=== PATIENT | male | born 1935 | race Caucasian/White ===

== ENCOUNTER → 2017-10-15 08:22 | Outpatient (CLI) | payer MEDICARE, OTHER, SELFPAY | PROVIDERS: Visit Provider Specialist | DX: M16.12 Unilateral primary osteoarthritis, left hip (principal) | CPT/HCPCS: 20610; 77002; Q9967; J0702 ==

== ENCOUNTER → 2017-12-03 05:54 | Outpatient (CLI) | payer MEDICARE, OTHER, SELFPAY ==
--- NOTE | 2017-12-03 18:01 | STRESSREP ---
Stress Test Report Date: 12/03/2017 Procedure: Pharmacologic stress nuclear imaging study Indications: Abnormal ECG; left bundle branch block pattern; preoperative cardiovascular evaluation Consent: Per the patient Procedure: The patient underwent pharmacologic (Regadenoson) evaluation with a peak heart rate of 88 beats per minute (62 predicted maximal heart rate) and a peak blood pressure of 130/72 mmHg. The baseline ECG demonstrated normal sinus rhythm; left bundle branch block. The peak pharmacologic ECG demonstrated no obvious ECG changes. There were no cardiac dysrhythmias pretest, during pharmacologic infusion, or recovery. There was no complaint of chest discomfort during pharmacologic infusion or recovery. The examination was discontinued secondary to completion of protocol. Impression: 1. Pharmacologic (Regadenoson) evaluation 2. Peak pharmacologic ECG with no obvious ECG change. 3. There were no cardiac dysrhythmias pretest, during pharmacologic infusion, or recovery. 4. Nuclear images pending Myocardial perfusion imaging study: Technique: The patient was injected with 14.6 millicuries of technetium 99m Cardiolite and subsequently rest SPECT Cardiolite nuclear imaging was obtained in the horizontal long, vertical long, and short axis views. The patient underwent pharmacologic (Regadenoson) evaluation with a peak heart rate of 88 beats per minute (62 % percent predicted maximal heart rate) and a peak blood pressure of 130/72 mmHg. The patient was injected with 44.7 millicuries of technetium 99m Cardiolite and subsequently stress SPECT Cardiolite nuclear imaging was obtained in the horizontal long, vertical long, and short axis views. A gated Cardiolite study at peak stress was obtained. Interpretation: Rest and stress SPECT Cardiolite nuclear imaging status post realignment, normalization, and attenuation correction demonstrate a small area of subtle diminished tracer uptake near the apical segments without significant change between rest and stress, otherwise, demonstrating relative uniform tracer uptake. There is end systolic thickening and brightening. The gated Cardiolite study demonstrates myocardial thickening and inward wall motion. The reported LVEF is 66 %. Impression: 1. Rest and stress SPECT currently nuclear imaging demonstrate a small area of subtle diminished tracer uptake near the apical segments without significant change between rest and stress appearing compatible with physiologic apical thinning with no myocardial perfusion changes consider diagnostic for associated stress-induced myocardial ischemia or previous myocardial injury/infarction. 2. The gated Cardiolite study reports an LVEF of 66 %. This note was generated with [employer] software. It may contain incorrect words, spelling, and punctuation that were not noted in checking the note before signing.
== END ==
PROVIDERS: Referring Provider Physician Assistant Medical; Visit Provider Physician Assistant Medical
DX: I44.7 Left bundle-branch block, unspecified (principal)
CPT/HCPCS: 78452; 93017; A9500; A4216; J2785

== ENCOUNTER 2018-04-02 07:41 | Inpatient (IN) | payer MEDICARE, OTHER, SELFPAY ==
[2017-11-28 09:28] VITALS: BMI 29.2
[2018-03-17 11:01] VITALS: BP 124/71; PULSE 97; RESP 18; TEMP 36.8; O2SAT 97; BMI 30.9
[2018-03-17 12:09] LABS: Absolute Lymphocyte Count 1.33 X10^3/ul (0.83-4.51); Absolute Neutrophil Count 6.8 X10^3/uL (2.0-7.7); Basophil# 0.01 X10^3/uL; Basophil% 0.1 % (0-1); Eosinophil# 0.27 X10^3/uL; Hematocrit 54.4 % (40-54); Lymphocyte # 1.33 X10^3/ul (4.0); Lymphocyte % 14.8 % (19-41); Mean Corp Hgb Conc 34.6 g/gl (32-36); Mean Corpuscular Hgb 30.6 pg (27.0-32.0); Mean Corpuscular Volume 88.5 fL (80-94); Mean Platelet Vol. 10.9 fl (6.2-12.0); Monocyte# 0.55 X10^3/uL; Monocyte% 6.1 % (0-10); Neutrophil # 6.78 X10^3/uL (2.7-7.7); Neutrophil % 75.8 % (47-70); Platelet Count 171 K/mm3 (150-450); RBC Distribution Width CV 12.9 % (11.6-14.6); RBC Distribution Width SD 41.3 fl (35.1-43.9); Red Blood Count 6.15 M/mm3 (4.6-6.2)
[2018-03-17 12:26] LABS: Hemoglobin 18.8 g/dl (13.0-16.5); POSITIVE COUNT NO; POSITIVE DIFFERENTIAL NO; POSITIVE MORPHOLOGY NO
[2018-03-17 12:35] LABS: Anion Gap 10 (5-15); BUN 27 mg/dL (7-18); Calcium,Total 9.2 mg/dL (8.5-10.1); Chloride 101 mmol/L (98-107); EST Glomerular Filtration Rate 48 mL/min (>60); Est Glom Filt Rate - Afr Amer 58 mL/min (>60); Estimated Creatinine Clearance 39.88 ml/min; Glucose 144 mg/dL (74-106); Potassium 4.3 mmol/L (3.5-5.1); Sodium Level 136 mmol/L (136-145)
--- NOTE | 2018-03-18 13:05 | PCM.HP.BLA ---
History and Physical DATE OF SURGERY: 04/02/2018 SCHEDULED PROCEDURE: left total hip arthroplasty HISTORY OF PRESENT ILLNESS: This is an 82-year-old male who is having ongoing left hip pain for over 6 years. Pain is been intermittent, dull, aching, and sharp. Patient has increased pain with sitting for extended periods of time. Patient states the pain is now affecting his activities of daily living including exercise capabilities. Patient has more pain now throughout the day. Patient has tried conservative measures consisting of previous intra-articular corticosteroid injection with only approximately 3 days of relief of left hip pain. He has tried home exercise plan with no relief in symptoms. Patient has tried oral medications of ibuprofen with only minimal relief. Patient denies previous surgery on the left hip. Patient currently denies any chest pain, shortness of breath, fevers chills, recent infections. Patient does have a medical history pertinent for hypertension. We have obtain surgical clearance from patient's civil cad designer Dr. Pablo and requiring clearance from patient's primary care physician Dr. Mendiola. After failing conservative measures and discussing all treatment options of Dr. Jerman Quiroga, the patient elected to proceed with a left total hip arthroplasty. REVIEW OF SYSTEMS: ROS: Const: Denies anorexia, change in appetite, fever, hard of hearing, vision problems and weight change. CV: Denies chest pain, heart murmur, irregular heartbeat and peripheral vascular disease. Resp: Reports sleep apnea, but denies asthma, cough, pneumonia, SOB, tuberculosis and wheezing. GI: Denies constipation, diarrhea, difficulty swallowing, heartburn, nausea, bloody stools and vomiting. : Urinary: denies incontinence. Musculo: Denies leg swelling, limp, trouble walking and weakness. Skin: Denies Raynaud's, history of shingles and tattoo. Neuro: Denies ambulatory dysfunction, dizziness, numbness/tingling and tremor. Psych: Denies anxiety, depression, insomnia, mental illness and stress. Dante/Lymph: Denies anemia, bleeding/bruising tendency and past transfusion. Reviewed, no changes. PAST MEDICAL HISTORY: Advance Care Plan: Other Directive, POA Effective Date: 06/30/2015 Other Directive, LIVING WILL Effective Date: 06/30/2015 PMH: Medical Problems: Arthritis, Gout, High Blood Pressure, Mild Spinal Stenosis Accidents: None Surgical Hx: Appendectomy - (194) HASKELL GEN Tonsillectomy - A CHILD RT 1St Dorsal Compartment Release - (03/21/2016) [email or web address] Anesthesia Complications: None Assistive Devices: Glasses - READING Reviewed, no changes. SOCIAL HISTORY: SH: Marital: .Occupation: Retired.Work Status: Retired.Hand Dominance: Right-handed. Personal Habits: Cigarette Use: Never.Alcohol: Occasionally.Drug Use: Denies Use.Enjoy Exercising: Exercises 1-3 X/Week. Reviewed, no changes. VITALS: Ht: 71.5 Wt: 219lb Wt k.338 BMI: 30.1 BP: 130/82 Pulse: 107 Resp: 16 T: 96.9 T: 36.1C ALLERGIES: No Known Drug Allergy MEDICATIONS: Probenecid 500 mg 1 tab PO daily, Multivitamins 1 by mouth every day, Krill Oil 500 mg 1po qday, Losartan Potassium 25 mg 1po qday PRE-OP EXAM: General appearance:NORMAL Other: Eyes: Conjunctivae and lids: NORMAL Pupils: ERR Ears, Nose, Mouth, and Throat: NORMAL Other: Inspection of lips, teeth and gums: NORMAL Other: Neck: Examination of neck: no masses noted. Respiratory: Assessment of respiratory effort: NORMAL Other: Auscultation of lungs: clear to auscultation no wheezes, rhonchi or rales. Cardiovascular: Auscultation of heart: regular rate and rhythm, no murmurs, gallops or rubs. Exam of carotid arteries: NORMAL Other: Gastrointestinal: Exam of abdomen: soft, nontender, nondistended bowel sounds present. PHYSICAL EXAMINATION: Patient currently with tenderness to palpation over the lateral left hip at the greater trochanteric bursa region. Patient also has tender to palpation along the iliac crest bilaterally. Range of motion left hip: 90 flexion, internal rotation 10, external rotation 20, pain with both internal and external rotation. Positive pain with figure 4 and tenderness over the piriformis fossa. Sensation intact to light touch. Neurovascularly intact. IMAGING STUDIES: Previous x-rays of the left hip does reveal joint space narrowing with subchondral sclerosis and osteophyte formation consistent with moderate to severe osteoarthritis. IMPRESSION: 1. Moderate - Severe left hip osteoarthritis 2. Hypertension 3. History of gout 4. Spinal stenosis PLAN: Dr. Jerman Quiroga did discuss and review with the patient all treatment options including surgical versus nonsurgical options. Patient does wish to proceed with the above-stated procedure. Potential risks, benefits, and complications of the procedure were discussed in detail including but not limited to , infection, nerve and blood vessel damage, persistent pain, numbness, tingling, paresthesias, blood clot, pulmonary embolism, and requirement for possible further surgery. The patient expressed full understanding and has no further questions for the doctor. Patient does agree to proceed with the above-stated procedure and has signed the surgery consent form. This dictation was created using voice recognition software. Phonetic and/or grammatical errors may exist.. ___ I have re-examined the patient. There are no clinical changes since date of exam. ___ See progress notes for changes. ___ Dictated on admission Date: Time: Signature:
[2018-04-02] VITALS (11 sets, daily range): BP systolic 88–154; BP diastolic 47–76; PULSE 56–92; RESP 16–18; TEMP 35.8–36.9; O2SAT 95–100; BMI 30.9
--- NOTE | 2018-04-02 07:02 | RAD_ITS ---
STUDY: X-RAY - LEFT HIP REASON FOR EXAM: Male, 82 years old. Total left hip replacement. TECHNIQUE: 2 views of the hip. COMPARISON: None. FINDINGS: The patient is status post left total hip replacement. Position and alignment. Normal visualized superior and inferior pubic rami and ischial tuberosities. Postoperative soft tissue changes. RAD/Hip Min 2 Views (Portable) IMPRESSION: Status post left hip replacement. There is good alignment. Postoperative soft tissue changes. Electronically Signed: Johnny Hutchinson MD at 13:53 EST , Service support ,
[2018-04-02] MEDS: Celecoxib 200 MG Capsule 400 MG PO (08:11)
[2018-04-02] MEDS: Acetaminophen 500 MG Tablet 1000 MG PO ×2 (08:11→15:37)
[2018-04-02] MEDS: Lactated Ringers 1,000 ML 999 ML IV ×2 (08:36→11:22)
[2018-04-02] MEDS: Cefazolin 2 GM in 0.9% Normal Saline 100 ML IV (09:15)
--- NOTE | 2018-04-02 10:00 | RAD_ITS ---
STUDY: X-RAY - LEFT HIP REASON FOR EXAM: Male, 82 years old. Total anterior left hip replacement. TECHNIQUE: 2 views of the hip. COMPARISON: None. FINDINGS: Intraoperative imaging provided for left anterior hip replacement. RAD/Hip 1 view with Pelvis IMPRESSION: Intraoperative imaging provided for left anterior hip replacement. Electronically Signed: Johnny Hutchinson MD at 13:43 EST , Service support ,
--- NOTE | 2018-04-02 10:36 | PCM.OPRPT ---
Report of Operation Date of Procedure: 04/02/18 Pre-Operative Diagnosis: Left hip primary osteoarthritis Post-Operative Diagnosis: Left hip primary osteoarthritis Surgery/Procedure Performed:: Direct anterior left total hip replacement Description of Surgical Findings:: Stable hip with equal leg lengths speech therapy director: Yara Gusman Type of Anesthesia:: Spinal Anesthesiologist: Nadeem Cerda Special Medications: 2 g Ancef, 1 g TXA at incision, 1 g TXA closure, 10 mg Decadron, joint cocktail (5 mg Duramorph, 30 mL of 0.5% Ropivicaine, 1000 units of epinephrine, 30 mg of Toradol) Specimen's removed: Bony cuts Estimated Blood Loss (mL): 350 Fluids Replaced: 2000 L crystalloid Description of Procedure: Components used: 1. Accolade 2 [place] femoral stem size 6 127? 2. [place] trident 2 acetabular shell size 58 mm 3. Rodriguez X3 polyethylene F 4. Rodriguez Biolox delta 36mm, -2.5mm femoral head Brief history operative indications: 82 yo M who failed conservative measures for their hip osteoarthritis. X-rays were consistent with osteoarthritis including joint space narrowing, osteophyte formation and subchondral cysts. Total hip replacement was discussed with the patient with risks and benefits including but not limited to blood loss, DVTs, PEs, neurovascular damage, dislocation, general risks of anesthesia including loss of life. Patient demonstrated an understanding medical clearance is obtained the patient was consented for surgery. Procedure: On the date of procedure the patient's L hip was marked in the preoperative area. Patient was then taken back to the operating room where anesthesia assumed control of the C-spine and airway and administered anesthetic. Patient was transferred to the operating table and placed in the supine position. The hips were placed at the break of the bed and a sacral bump was placed. The L lower extremity was then prepped out in a sterile fashion using chlorhexidine while the surgeon scrubbed. The PA was vital in the positioning of the patient. Upon reentering the room the L lower extremity was draped in the standard orthopedic fashion and the incision was marked. A timeout was called and everyone agreed upon the side, the site, the procedure be performed, antibody given, and patient's identity. At this time incision was made through skin, subcutaneous tissue, and fat down to fascia. The fascia was then incised and the TFL was retracted laterally. A retractor was placed on the lateral border of the femoral neck. Attention was directed to the inferior portion of the approach and all crossing vessels were identified and appropriately coagulated. A retractor was then placed on the medial portion of the femoral neck. The anterior capsule was then cleared of all soft tissue and then H shaped capsulotomy was made. The retractors were then placed inside the capsule. The femoral neck was identified and a cleanup cut was made. At this time a power corkscrew was used to remove the femoral head. Attention was then turned toward the acetabulum where the soft tissues were appropriately retracted and the acetabulum was sequentially reamed to 58 mm. A 58 mm cup was then selected and impacted into place. Acetabular liner was impacted into place and locking mechanism was verified. The position of the acetabular cup was then verified under live fluoroscopy. Attention was then turned to the femur. Soft tissue releases on the medial and lateral femoral neck were appropriately done, the leg was externally rotated and lateralized. A Henson retractor was placed medially and proximally to the greater trochanter this allowed appropriate visualization and exposure of the femoral canal. Rongeour was then used to remove excess lateral bone. A canal finder and entry broach were used to open the proximal canal. Once we verified we were down the femoral canal we subsequently broached up to a size 6 femur. The appropriate neck was placed in the previously selected head was trialed with a -2.5 mm neck. Traction was pulled and the hip was reduced with internal rotation. Once it was appropriately reduced and stability was checked. There was minimal shuck, equal leg lengths and appropriate stability with hyperextension and external rotation as well as with 90? flexion and internal rotation. Fluoroscopy was then also used to verify the position of the components and leg lengths using the contralateral side for comparison. The trial components were then dislocated the proximal femur was again exposed and the components were removed from the wound. The final components were verified and opened. The wound was copiously irrigated out with normal saline. The acetabulum was checked for any residual debris. The final components were placed and impacted. Traction and internal rotation were again used to reduce the hip. After adequate reduction the hip remained stable with appropriate leg lengths. The final components were once again checked with live fluoroscopy and were found to be satisfactory. The wound was then copiously irrigated with normal saline once more, and hemostasis was obtained. Closure was then done using #1 Vicryl runner to close the fascia. A 2-0 vicryl interuppted sutures were used to close the subcutaneous skin. A 3-0 Monocryl and Steri-Strips were used for final skin closure. A Silverlon dressing was placed. Patient was awakened by anesthesia and transferred to the [facility]. Patient was then transferred to the PACU for recovery. Postoperative plan: Patient will get 24 hours postop antibiotics. Patient will get in-house physical therapy and will be weight-bear as tolerated. Patient will follow up in office in 2 weeks for a wound check and x-rays. Grafts/Implants Used: [place] Accolade 2, Trident 2 - Complications None - Admit VTE Documentation VTE Present on Admission: No VTE Mechan Device Prophylaxis: SCD's, Thigh High NIKI Hose VTE Pharm Prophylaxis ordered?: Yes
--- NOTE | 2018-04-02 10:39 | OP.PCM_ITS ---
Report of Operation Date of Procedure: 04/02/18 Pre-Operative Diagnosis: Left hip primary osteoarthritis Post-Operative Diagnosis: Left hip primary osteoarthritis Surgery/Procedure Performed:: Direct anterior left total hip replacement Description of Surgical Findings:: Stable hip with equal leg lengths cigar head holer: Yara Gusman Type of Anesthesia:: Spinal Anesthesiologist: Nadeem Cerda Special Medications: 2 g Ancef, 1 g TXA at incision, 1 g TXA closure, 10 mg Decadron, joint cocktail (5 mg Duramorph, 30 mL of 0.5% Ropivicaine, 1000 units of epinephrine, 30 mg of Toradol) Specimen's removed: Bony cuts Estimated Blood Loss (mL): 350 Fluids Replaced: 2000 L crystalloid Description of Procedure: Components used: 1. Accolade 2 [place] femoral stem size 6 127? 2. [place] trident 2 acetabular shell size 58 mm 3. Rodriguez X3 polyethylene F 4. Rodriguez Biolox delta 36mm, -2.5mm femoral head Brief history operative indications: 82 yo M who failed conservative measures for their hip osteoarthritis. X-rays were consistent with osteoarthritis including joint space narrowing, osteophyte formation and subchondral cysts. Total hip replacement was discussed with the patient with risks and benefits including but not limited to blood loss, DVTs, PEs, neurovascular damage, dislocation, general risks of anesthesia including loss of life. Patient demonstrated an understanding medical clearance is obtained the patient was consented for surgery. Procedure: On the date of procedure the patient's L hip was marked in the preoperative area. Patient was then taken back to the operating room where anesthesia assumed control of the C-spine and airway and administered anesthetic. Patient was transferred to the operating table and placed in the supine position. The hips were placed at the break of the bed and a sacral bump was placed. The L lower extremity was then prepped out in a sterile fashion using chlorhexidine while the surgeon scrubbed. The PA was vital in the positioning of the patient. Upon reentering the room the L lower extremity was draped in the standard orthopedic fashion and the incision was marked. A timeout was called and everyone agreed upon the side, the site, the procedure be performed, antibody gi estephanie, and patient's identity. At this time incision was made through skin, subcutaneous tissue, and fat down to fascia. The fascia was then incised and the TFL was retracted laterally. A retractor was placed on the lateral border of the femoral neck. Attention was directed to the inferior portion of the approach and all crossing vessels were identified and appropriately coagulated. A retractor was then placed on the medial portion of the femoral neck. The anterior capsule was then cleared of all soft tissue and then H shaped capsulotomy was made. The retractors were then placed inside the capsule. The femoral neck was identified and a cleanup cut was made. At this time a power corkscrew was used to remove the femoral head. Attention was then turned toward the acetabulum where the soft tissues were appropriately retracted and the acetabulum was sequentially reamed to 58 mm. A 58 mm cup was then selected and impacted into place. Acetabular liner was impacted into place and locking mechanism was verified. The position of the acetabular cup was then verified under live fluoroscopy. Attention was then turned to the femur. Soft tissue releases on the medial and lateral femoral neck were appropriately done, the leg was externally rotated and lateralized. A Henson retractor was placed medially and proximally to the greater trochanter this allowed appropriate visualization and exposure of the femoral canal. Rongeour was then used to remove excess lateral bone. A canal finder and entry broach were used to open the proximal canal. Once we verified we were down the femoral canal we subsequently broached up to a size 6 femur. The appropriate neck was placed in the previously selected head was trialed with a -2.5 mm neck. Traction was pulled and the hip was reduced with internal rotation. Once it was appropriately reduced and stability was checked. There was minimal shuck, equal leg lengths and appropriate stability with hyperextension and external rotation as well as with 90? flexion and internal rotation. Fluoroscopy was then also used to verify the position of the components and leg lengths using the contralateral side for comparison. The trial components were then dislocated the proximal femur was again exposed and the components were removed from the wound. The final components were verified and opened. The wound was copiously irrigated out with normal saline. The acetabulum was checked for any residual debris. The final components were placed and impacted. Traction and internal rotation were again used to reduce the hip. After adequate reduction the hip remained stable with appropriate leg lengths. The final components were once again checked with live fluoroscopy and were found to be satisfactory. The wound was then copiously irrigated with normal saline once more, and hemostasis was obtained. Closure was then done using #1 Vicryl runner to close the fascia. A 2-0 vicryl interuppted sutures were used to close the subcutaneous skin. A 3-0 Monocryl and Steri-Strips were used for final skin closure. A Silverlon dressing was placed. Patient was awakened by anesthesia and transferred to the [facility]. Patient was then transferred to the PACU for recovery. Postoperative plan: Patient will get 24 hours postop antibiotics. Patient will get in-house physical therapy and will be weight-bear as tolerated. Patient will follow up in office in 2 weeks for a wound check and x-rays. Grafts/Implants Used: [place] Accolade 2, Trident 2 - Complications None - Admit VTE Documentation VTE Present on Admission: No VTE Mechan Device Prophylaxis: SCD's, Thigh High NIKI Hose VTE Pharm Prophylaxis ordered?: Yes
[2018-04-02] MEDS: Scopolamine 1mg/72hr Patch 1 PATCH TD (11:30)
[2018-04-02] MEDS: Famotidine 20 MG Tablet PO (15:36)
[2018-04-02] MEDS: Senna/Docusate Sodium 1 Tablet 2 TABLET PO ×2 (15:36→22:52)
[2018-04-02] MEDS: Losartan Potassium 25 MG Tablet PO (15:36)
[2018-04-02] MEDS: Cefazolin 1 GM/50 ML BAG IV (17:18)
[2018-04-02] MEDS: Aspirin 81 MG TAB.CHEW PO (17:19)
[2018-04-03] MEDS: Cefazolin 1 GM/50 ML BAG IV (01:54)
[2018-04-03] MEDS: 0.9% NaCl Peripheral Flush Adult/Peds IV ×2 (01:55→06:08)
[2018-04-03 02:01] VITALS: BP 138/68; PULSE 79; RESP 18; TEMP 36.6; O2SAT 97
[2018-04-03] MEDS: oxyCODONE 5 MG Tablet PO (02:11)
[2018-04-03 06:05] LABS: Hematocrit 41.9 % (40-54); Hemoglobin 14.4 g/dl (13.0-16.5); Mean Corp Hgb Conc 34.4 g/gl (32-36); Mean Corpuscular Hgb 30.3 pg (27.0-32.0); Mean Platelet Vol. 10.4 fl (6.2-12.0); Platelet Count 147 K/mm3 (150-450); RBC Distribution Width SD 41.1 fl (35.1-43.9); Red Blood Count 4.76 M/mm3 (4.6-6.2)
[2018-04-03 06:07] LABS: Scan Indicated on CBC? Y/N NO
[2018-04-03] MEDS: Acetaminophen 500 MG Tablet 1000 MG PO ×2 (06:08→22:16)
[2018-04-03 06:15] LABS: Anion Gap 10 (5-15); BUN 21 mg/dL (7-18); Chloride 112 mmol/L (98-107); Creatinine, Serum 1.31 mg/dL (0.70-1.30); EST Glomerular Filtration Rate 56 mL/min (>60); Est Glom Filt Rate - Afr Amer 68 mL/min (>60); Estimated Creatinine Clearance 45.66 ml/min; Glucose 122 mg/dL (74-106); Potassium 4.1 mmol/L (3.5-5.1); Sodium Level 143 mmol/L (136-145)
[2018-04-03] MEDS: Senna/Docusate Sodium 1 Tablet 2 TABLET PO ×2 (08:54→22:16)
[2018-04-03 08:55] VITALS: BP 130/66; PULSE 89; RESP 16; TEMP 36.7; O2SAT 93
[2018-04-03] MEDS: Famotidine 20 MG Tablet PO (08:55)
[2018-04-03] MEDS: Aspirin 81 MG TAB.CHEW PO ×2 (08:55→16:37)
[2018-04-03] MEDS: Multivitamins,Ther W-Minerals Tablet 1 TABLET PO (08:55)
[2018-04-03] MEDS: Meloxicam 7.5 MG Tablet PO ×2 (08:55→22:16)
[2018-04-03] MEDS: Losartan Potassium 25 MG Tablet PO (08:55)
--- NOTE | 2018-04-03 08:56 | PCM.PN.ORT ---
Subjective: The patient was sitting in bedside chair upon examination. Patient denies any chest pain, shortness of breath, dizziness, lightheadedness, nausea or vomiting, or calf pain. Pain is controlled on medications. Patient states after getting the oxycodone he did have some dizziness and lightheadedness. No adverse overnight events. Discussion with the nurse, patient has had postoperative confusion. There is not any documented underlying dementia. No family member was present during examination. Patient is alert and is able to give his name and date of and why he is here for surgery. Patient did think he was at [facility]. Objective: Vital signs stable and afebrile. Patient is able to plantarflex and dorsiflex actively. Sensation is intact to light touch to saphenous, sural, superficial and deep peroneal, and tibial distribution. Dressing is clean dry and intact. Negative Homans bilaterally, negative signs and symptoms of DVT. - Physical Exam General: Alert, Cooperative, No apparent distress Vital Signs Temp Pulse Resp BP Pulse Ox 98 F 79 18 138/68 H 97 04/03/18 02:01 04/03/18 02:01 04/03/18 02:01 04/03/18 02:01 04/03/18 02:01 Oxygen Delivery Method Room Air Weight: 99.337 kg Body Mass Index (BMI) 30.9 Intake and Output for Last 24 Hours 04/01/18 04/02/18 04/03/18 23:59 23:59 23:59 Intake Total 2300 / 2300 789.3 / 789.3 Balance 2300 / 2300 789.3 / 789.3 Laboratory Tests Past 24 Hrs 04/03/18 04/03/18 05:40 05:40 WBC 8.0 RBC 4.76 Hgb 14.4 Hct 41.9 MCV 88.0 MCH 30.3 MCHC 34.4 RDW 13.0 RDW Differential 41.1 Plt Count 147 L MPV 10.4 Sodium 143 Potassium 4.1 Chloride 112 H Carbon Dioxide 21.0 Anion Gap 10 BUN 21 H Creatinine 1.31 H Estim Creat Clear Calc 45.66 Est GFR (MDRD) Af Amer 68 Est GFR (MDRD) Non-Af 56 L BUN/Creatinine Ratio 16.0 Glucose 122 H Calcium 8.0 L Medical Necessity - Tobacco Use Smoking Status: Never smoker Assessment/Plan All Active Problems (Last Updated 11/27/17 @ 14:37 by Norma Santana) Abnormal EKG (Acute) 1. S/P left direct anterior total hip arthroplasty POD #1 2. Continue Pain Medications: Tylenol. Oxycodone was discontinued due to the confusion and making him dizzy/lightheaded. I will switch patient over to tramadol only for as needed pain. Continue primarily with Tylenol for pain control. 3. DVT Prophylaxis: Aspirin 81 mg twice daily with food for 4 weeks postoperatively 4. PT/OT: Weightbearing as tolerated 5. H & H: 14.4/41.9, asymptomatic 6. Encouraged Incentive Spirometry 7. Postoperative confusion: There is no family member present during examination. I do not see any documented underlying dementia. This is most likely secondary to anesthesia, pain medications, surgery. Oxycodone was discontinued and we will use primarily Tylenol for pain control. Tramadol order has been placed for only breakthrough pain. 8. Disposition: Plan will be for possible discharge home tomorrow. I would like to discuss situation with family and see how patient does with pain regimen since it is been adjusted.
--- NOTE | 2018-04-03 09:59 | NURSING ---
into room as chair alarm going off. pt attempting to get up without waLker or assistance. pt sl. confused states looking for Ray the PA that he wasn't sure if he was going home or not. also thought his luis armando was still in the building. pt reoriented and this nurse went to nurses' station to discuss with Hernesto KHANNA. AwARe per Ray unsure if underlining dementia or confusion with meds but pt would be staying today, changing medications and would like to talk to pt's . pt informed of this, pt requested we call his on her cell at [phone]. called, updated as pt requested and phone turned over to Hernesto KHANNA to talk with her.
--- NOTE | 2018-04-03 10:40 | CASEMGMT ---
RN CM Face to Face with patient for initial transition planning/care coordination assessment. RN CM introduced self and role at [facility]. Patient lying in bed, alert and oriented. Patient willing to participate in assessment and is able to answer all questions appropriately. Care providers, pharmacy, and demographics verified. Patient wishes to discharge home and is setup with [facility] for outpatient therapy beginning 04/07/18 with providing transportation. Patient states he has no further needs or concerns at this time. CM to follow for discharge planning needs that may arise. PCP: Elieser Specialists: Marsha senior electrical design engineer Preferred [facility]acy: [facility] Insurance: Paymate, Human Prescription Benefit: Yes Living Will/HPOA: Yes, Salud Licea LNOK: Living Arrangements: Patient lives with in 2 story house with arrangements made for first floor setup. Patient independent at home. Transportation: DME/HHC: Patient has shower chair, raised toilet, cane, and walker. Disposition Plan: Patient to discharge home with outpatient therapy, family support and follow-up plans in place. Marielena CHENG, RN, CM
--- NOTE | 2018-04-03 13:20 | PCA ---
therapy working with pt
[2018-04-03 14:10] VITALS: BP 141/71; PULSE 95; RESP 18; TEMP 36.7; O2SAT 95
[2018-04-03 20:25] VITALS: BP 133/60; PULSE 103; RESP 18; TEMP 36.4; O2SAT 94
[2018-04-04 02:58] VITALS: BP 159/66; PULSE 98; RESP 16; TEMP 36.6; O2SAT 96
[2018-04-04 06:35] LABS: Hematocrit 40.9 % (40-54); Hemoglobin 14.2 g/dl (13.0-16.5); Mean Corp Hgb Conc 34.7 g/gl (32-36); Mean Corpuscular Hgb 30.6 pg (27.0-32.0); Mean Corpuscular Volume 88.1 fL (80-94); Mean Platelet Vol. 10.3 fl (6.2-12.0); Platelet Count 133 K/mm3 (150-450); RBC Distribution Width CV 13.2 % (11.6-14.6); RBC Distribution Width SD 42.2 fl (35.1-43.9); Red Blood Count 4.64 M/mm3 (4.6-6.2)
[2018-04-04 06:36] LABS: Scan Indicated on CBC? Y/N NO
[2018-04-04] MEDS: Acetaminophen 500 MG Tablet 1000 MG PO ×2 (06:56→13:42)
--- NOTE | 2018-04-04 07:31 | PCM.PN.ORT ---
Subjective: The patient was sitting in bedside chair upon examination. Patient denies any chest pain, shortness of breath, dizziness, lightheadedness, nausea or vomiting, or calf pain. Pain is controlled on medications. No adverse overnight events. Patient is doing better today with regards to the postoperative confusion. Narcotics were held and patient has been doing well with pain control on Tylenol. Patient is alert and oriented x3. I did discuss with patient's postoperative confusion yesterday. Objective: Vital signs stable and afebrile. Patient is able to plantarflex and dorsiflex actively. Sensation is intact to light touch to saphenous, sural, superficial and deep peroneal, and tibial distribution. Dressing is clean dry and intact. Negative Homans bilaterally, negative signs and symptoms of DVT. - Physical Exam General: Alert, Oriented x3, Cooperative, No apparent distress Vital Signs Temp Pulse Resp BP Pulse Ox 97.9 F 98 16 159/66 H 96 04/04/18 02:58 04/04/18 02:58 04/04/18 02:58 04/04/18 02:58 04/04/18 02:58 Oxygen Delivery Method Room Air Weight: 99.337 kg Body Mass Index (BMI) 30.9 Intake and Output for Last 24 Hours 04/02/18 04/03/18 04/04/18 23:59 23:59 23:59 Intake Total 2300 / 2300 1689.3 / 1689.3 960 / 960 Output Total 250 / 250 Balance 2300 / 2300 1439.3 / 1439.3 960 / 960 Laboratory Tests Past 24 Hrs 04/04/18 06:12 WBC 8.0 RBC 4.64 Hgb 14.2 Hct 40.9 MCV 88.1 MCH 30.6 MCHC 34.7 RDW 13.2 RDW Differential 42.2 Plt Count 133 L MPV 10.3 Medical Necessity - Tobacco Use Smoking Status: Never smoker Assessment/Plan All Active Problems (Last Updated 11/27/17 @ 14:37 by Norma Santana) Abnormal EKG (Acute) 1. S/P left direct anterior total hip arthroplasty POD #2 2. Continue Pain Medications: Tylenol. Oxycodone was discontinued due to the confusion and making him dizzy/lightheaded. I will switch patient over to tramadol only for as needed pain. Continue primarily with Tylenol for pain control. 3. DVT Prophylaxis: Aspirin 81 mg twice daily with food for 4 weeks postoperatively 4. PT/OT: Weightbearing as tolerated 5. H & H: 14.2/40.9, asymptomatic 6. Encouraged Incentive Spirometry 7. Postoperative confusion: I did get to discuss patient's situation with the . Patient's confusion is better today. Did discuss with him patient's age with undergoing anesthesia, narcotics for the the cause of this. Patient's did say he does have some difficulty with memory at times. We will continue to monitor this at home. 8. Disposition: Plan will be for possible discharge home today. Prescriptions will be attached to chart. Patient will follow-up per postop instructions. Patient is to primarily use Tylenol for pain control and only use tramadol for as needed breakthrough pain.
--- NOTE | 2018-04-04 07:38 | PCM.DC.THR ---
Discharge Diet: No Restrictions Discharge Activity: May Not Drive - while taking narcotic pain medications. May shower in (days): 1 - Turned dressing away from water Ice area for (Minutes): 20 - Every 1-2 hours while awake Weight Bearing Status: Weight bearing as tolerated Elevate: Operative Extremity Additional Activity Instructions:: Wear elastic stockings for 2 weeks. DO NOT use alcohol with narcotic pain medication. DO NOT make important decisions while taking narcotic medication. If you have problems with taking your medication (rash, itching, nausea, etc.) call the office at once. Call your doctor if your incision/area has: Increased Pain/ Swelling, Increased Redness, Foul Smelling Discharge Call your doctor if you observe: Fever of 101 or Higher Remove Dressing in (days):: 3 - Okay to remove on April 07, 2018 Additional Instructions: Follow [facility] postop instructions Do not take any other anti-inflammatories while on the meloxicam Allergies/Adverse Reactions: Allergies No Known Allergies Allergy (Verified 03/17/18 10:42) Medications to take at Discharge Probenecid 500 mg PO DAILY 03/14/16 losartan 50 mg tablet 25 mg PO DAILY 90 Days #90 tab 11/28/17 Multivitamin with Minerals [Multiple Vitamin] 1 each PO DAILY 03/17/18 Acetaminophen [Tylenol] 1,000 mg PO Q8 #90 tab 04/04/18 Aspirin [Aspirin, Baby] 81 mg PO BIDCM #60 tab.chew 04/04/18 Famotidine [Pepcid] 20 mg PO DAILY #30 tab 04/04/18 Meloxicam [Mobic] 7.5 mg PO BID #60 tab 04/04/18 traMADol [Ultram] 50 mg PO Q6H PRN PRN 5 Days #20 tab 04/04/18 The following prescriptions were given: traMADol [Ultram] 50 mg PO Q6H PRN PRN 5 Days #20 tab PRN Reason: Moderate Pain (4-5/10) Acetaminophen [Tylenol] 1,000 mg PO Q8 #90 tab Famotidine [Pepcid] 20 mg PO DAILY #30 tab Aspirin [Aspirin, Baby] 81 mg PO BIDCM #60 tab.chew Meloxicam [Mobic] 7.5 mg PO BID #60 tab Primary Care Physician: Glenn Mon Chi, MD [Primary Care Provider] - Test Results: Test results from this visit will be discussed in further detail at your follow-up appointment, if applicable. Please Follow Up With: Physical therapy When: to begin 04/07/18 Please Follow Up With: Gregg King PA-C When: 04/16/18 @ 10:00 am
[2018-04-04 09:30] VITALS: BP 137/70; PULSE 92; RESP 18; TEMP 36.7; O2SAT 97
[2018-04-04] MEDS: Famotidine 20 MG Tablet PO (09:30)
[2018-04-04] MEDS: Senna/Docusate Sodium 1 Tablet 2 TABLET PO (09:30)
[2018-04-04] MEDS: Meloxicam 7.5 MG Tablet PO (09:30)
[2018-04-04] MEDS: Losartan Potassium 25 MG Tablet PO (09:30)
[2018-04-04] MEDS: Aspirin 81 MG TAB.CHEW PO (09:30)
[2018-04-04] MEDS: Multivitamins,Ther W-Minerals Tablet 1 TABLET PO (09:30)
--- NOTE | 2018-04-04 13:03 | PCA ---
PT IN THERAPY
--- NOTE | 2018-04-04 13:06 | PCA ---
THERAPY WORKING WITH PT
[2018-04-04 13:45] VITALS: BP 152/77; PULSE 88; RESP 16; TEMP 36.9; O2SAT 95
--- NOTE | 2018-04-04 14:52 | NURSING ---
DEV, PTS , CALLED TO NOTIFY OF BELONGINGS LEFT IN ROOM AT TIME OF DISCHARGE.
== END 2018-04-04 14:12 | disposition home or self-care (01) | DRG 470 ==
LOC: ACINP 07:43 → MS3 08:58
PROVIDERS: Physician Assistant Surgical; Admitting Provider Specialist; Family Provider Family Medicine Geriatric Medicine; PCP Family Medicine Geriatric Medicine; Referring Provider Specialist; Visit Provider Specialist
PROC: 0SRB04A Replacement of Left Hip Joint with Ceramic on Polyethylene Synthetic Substitute, Uncemented, Open Approach (ICD-10-PCS; CPT 27284; principal; 2018-04-02 09:20)
DX: M16.12 Unilateral primary osteoarthritis, left hip (principal); R41.0 Disorientation, unspecified; I10 Essential (primary) hypertension; M10.9 Gout, unspecified; M48.00 Spinal stenosis, site unspecified
CPT/HCPCS: 36415; 73501; 73502; 76000; 80048; 85025; 85027; 87081; 97110; 97162; 97166; 97530; 97535; 99251; C1776; J7120; A4216; G0463

== ENCOUNTER → 2018-07-03 16:01 | Outpatient (CLI) | payer MEDICARE, OTHER, SELFPAY ==
[2018-04-29 10:04] VITALS: BMI 31.4
[2018-07-03 18:11] LABS: Vitamin D,25 Hydroxy 17.1 ng/mL (29.95-100.01)
[2018-07-03 18:27] LABS: Absolute Lymphocyte Count 1.67 X10^3/ul (0.83-4.51); Absolute Neutrophil Count 6.5 X10^3/uL (2.0-7.7); Basophil# 0.04 X10^3/uL; Basophil% 0.4 % (0-1); Eosinophil# 0.42 X10^3/uL; Eosinophils% 4.6 % (0-5); Hematocrit 46.6 % (40-54); Hemoglobin 15.9 g/dl (13.0-16.5); Lymphocyte # 1.67 X10^3/ul (4.0); Lymphocyte % 18.1 % (19-41); Mean Corp Hgb Conc 34.1 g/gl (32-36); Mean Corpuscular Hgb 29.4 pg (27.0-32.0); Mean Corpuscular Volume 86.3 fL (80-94); Mean Platelet Vol. 10.7 fl (6.2-12.0); Monocyte# 0.62 X10^3/uL; Monocyte% 6.7 % (0-10); Neutrophil # 6.45 X10^3/uL (2.7-7.7); Platelet Count 203 K/mm3 (150-450); RBC Distribution Width CV 13.8 % (11.6-14.6); RBC Distribution Width SD 43.2 fl (35.1-43.9); White Blood Count 9.2 K/mm3 (4.4-11.0)
[2018-07-03 18:29] LABS: Differential Indicated SCAN CRITERIA MET; POSITIVE COUNT YES; POSITIVE DIFFERENTIAL NO; POSITIVE MORPHOLOGY NO
[2018-07-03 18:31] LABS: ALB/GLOB Ratio 1.3 RATIO (0.9-2.4); AST(SGOT) 20 U/L (15-37); Alanine Aminotransfer ALT/SGPT 30 U/L (16-61); Alkaline Phosphatase 84 U/L (45-117); Anion Gap 7 (5-15); BUN 23 mg/dL (7-18); BUN/Creat Ratio 17.3 RATIO (10-20); Chloride 107 mmol/L (98-107); Creatinine, Serum 1.33 mg/dL (0.70-1.30); EST Glomerular Filtration Rate 55 mL/min (>60); Est Glom Filt Rate - Afr Amer 66 mL/min (>60); Glucose 102 mg/dL (74-106); Potassium 4.3 mmol/L (3.5-5.1); Sodium Level 140 mmol/L (136-145); Thyroid Stim Hormone (TSH) 0.35 uIU/mL (0.358-3.74); Uric Acid 6.2 mg/dL (3.5-7.2)
[2018-07-03 18:55] LABS: Platelet Estimate ADEQUATE (ADEQ); Platelet Morphology LARGE
[2018-07-03 18:56] LABS: Red Cell Morphology NORM C+C NORMAL (NORM C&C)
== END ==
PROVIDERS: Family Provider Family Medicine Geriatric Medicine; Visit Provider Family Medicine Geriatric Medicine
DX: E11.9 Type 2 diabetes mellitus without complications (principal); E23.6 Other disorders of pituitary gland; E55.9 Vitamin D deficiency, unspecified; I10 Essential (primary) hypertension; M10.9 Gout, unspecified
CPT/HCPCS: 36415; 80053; 82306; 84403; 84443; 84550; 85025

== ENCOUNTER → 2018-10-16 11:15 | Outpatient (CLI) | payer MEDICARE, OTHER, SELFPAY ==
[2018-04-29 10:04] VITALS: BMI 31.4
[2018-10-16 12:49] LABS: Absolute Lymphocyte Count 1.38 X10^3/uL (0.83-4.51); Absolute Neutrophil Count 6.9 X10^3/uL (2.0-7.7); Basophil# 0.05 X10^3/uL; Basophil% 0.5 % (0-1); Eosinophil# 0.38 X10^3/uL; Eosinophils% 4.1 % (0-5); Hematocrit 51.6 % (40-54); Hemoglobin 17.3 g/dL (13.0-16.5); Lymphocyte # 1.38 X10^3/ul (4.0); Lymphocyte % 14.9 % (19-41); Mean Corp Hgb Conc 33.5 g/dL (32-36); Mean Corpuscular Volume 86.6 fL (80-94); Mean Platelet Vol. 10.5 fl (6.2-12.0); Monocyte# 0.54 X10^3/uL; Monocyte% 5.8 % (0-10); NRBC Flagged by Analyzer 0 % (0-5); Neutrophil # 6.88 X10^3/uL (2.7-7.7); Neutrophil % 74.4 % (47-70); Platelet Count 170 K/mm3 (150-450); RBC Distribution Width CV 15.8 % (11.6-14.6); RBC Distribution Width SD 48.2 fl (35.1-43.9); Red Blood Count 5.96 M/mm3 (4.6-6.2); White Blood Count 9.3 K/mm3 (4.4-11.0)
[2018-10-16 13:24] LABS: ALB/GLOB Ratio 1.1 RATIO (0.9-2.4); AST(SGOT) 14 U/L (15-37); Alanine Aminotransfer ALT/SGPT 37 U/L (16-61); Albumin, Serum 3.7 g/dL (3.2-5.0); Alkaline Phosphatase 79 U/L (45-117); Anion Gap 6 (5-15); BUN 20 mg/dL (7-18); BUN/Creat Ratio 15.9 RATIO (10-20); Calcium,Total 8.9 mg/dL (8.5-10.1); Chloride 106 mmol/L (98-107); Creatinine, Serum 1.26 mg/dL (0.70-1.30); EST Glomerular Filtration Rate 58 mL/min (>60); Est Glom Filt Rate - Afr Amer 71 mL/min (>60); Globulin 3.5 g/dL (2.2-4.2); Glucose 112 mg/dL (74-106); Potassium 4.4 mmol/L (3.5-5.1); Protein, Total 7.2 g/dL (6.4-8.2); Sodium Level 140 mmol/L (136-145); Thyroid Stim Hormone (TSH) 0.31 uIU/mL (0.358-3.74)
== END ==
PROVIDERS: Family Provider Family Medicine Geriatric Medicine; Visit Provider Family Medicine Geriatric Medicine
DX: E23.6 Other disorders of pituitary gland (principal); I10 Essential (primary) hypertension; E05.90 Thyrotoxicosis, unspecified without thyrotoxic crisis or storm
CPT/HCPCS: 36415; 80053; 84403; 84439; 84443; 85025

== ENCOUNTER → 2018-11-11 11:20 | Outpatient (CLI) | payer MEDICARE, OTHER, SELFPAY ==
[2018-04-29 10:04] VITALS: BMI 31.4
[2018-11-11 12:45] LABS: Absolute Lymphocyte Count 1.31 X10^3/uL (0.83-4.51); Absolute Neutrophil Count 5.4 X10^3/uL (2.0-7.7); Basophil# 0.04 X10^3/uL; Basophil% 0.5 % (0-1); Eosinophil# 0.38 X10^3/uL; Hematocrit 49.7 % (40-54); Hemoglobin 16.9 g/dL (13.0-16.5); Lymphocyte # 1.31 X10^3/ul (4.0); Lymphocyte % 17.4 % (19-41); Mean Corpuscular Hgb 29.6 pg (27.0-32.0); Mean Corpuscular Volume 87.2 fL (80-94); Mean Platelet Vol. 10.4 fl (6.2-12.0); Monocyte# 0.41 X10^3/uL; Monocyte% 5.4 % (0-10); NRBC Flagged by Analyzer 0 % (0-5); Neutrophil # 5.36 X10^3/uL (2.7-7.7); Neutrophil % 71.2 % (47-70); Platelet Count 153 K/mm3 (150-450); RBC Distribution Width CV 14.6 % (11.6-14.6); RBC Distribution Width SD 46.7 fl (35.1-43.9); White Blood Count 7.5 K/mm3 (4.4-11.0)
[2018-11-11 13:17] LABS: ALB/GLOB Ratio 1.2 RATIO (0.9-2.4); AST(SGOT) 21 U/L (15-37); Alanine Aminotransfer ALT/SGPT 38 U/L (16-61); Albumin, Serum 3.8 g/dL (3.2-5.0); Alkaline Phosphatase 72 U/L (45-117); Anion Gap 7 (5-15); BUN 17 mg/dL (7-18); BUN/Creat Ratio 14.4 RATIO (10-20); Chloride 107 mmol/L (98-107); Cholesterol 179 mg/dL (200); Creatinine, Serum 1.18 mg/dL (0.70-1.30); EST Glomerular Filtration Rate 63 mL/min (>60); Est Glom Filt Rate - Afr Amer 76 mL/min (>60); Globulin 3.2 g/dL (2.2-4.2); Glucose 108 mg/dL (74-106); High Density Lipoprotein 33 mg/dL; Potassium 4.4 mmol/L (3.5-5.1); Sodium Level 141 mmol/L (136-145); Thyroid Stim Hormone (TSH) 0.29 uIU/mL (0.358-3.74); Triglycerides 279 mg/dL; Very Low Density Lipoprotein 56 mg/dL (5-40)
== END ==
PROVIDERS: Family Provider Family Medicine Geriatric Medicine; Visit Provider Family Medicine Geriatric Medicine
DX: E23.6 Other disorders of pituitary gland (principal); E78.5 Hyperlipidemia, unspecified; I10 Essential (primary) hypertension
CPT/HCPCS: 36415; 80053; 80061; 84403; 84443; 85025

== ENCOUNTER → 2019-05-12 09:08 | Outpatient (CLI) | payer MEDICARE, OTHER, SELFPAY ==
[2019-05-11 09:03] VITALS: BMI 30.5
[2019-05-12 11:56] LABS: Absolute Lymphocyte Count 1.27 X10^3/uL (0.83-4.51); Absolute Neutrophil Count 3.9 X10^3/uL (2.0-7.7); Basophil# 0.03 X10^3/uL; Basophil% 0.5 % (0-1); Eosinophil# 0.31 X10^3/uL; Eosinophils% 5.3 % (0-5); Hematocrit 50.1 % (40-54); Lymphocyte # 1.27 X10^3/ul (4.0); Lymphocyte % 21.6 % (19-41); Mean Corp Hgb Conc 33.9 g/dL (32-36); Mean Corpuscular Hgb 30.5 pg (27.0-32.0); Mean Corpuscular Volume 89.9 fL (80-94); Mean Platelet Vol. 10.5 fl (6.2-12.0); Monocyte# 0.37 X10^3/uL; Monocyte% 6.3 % (0-10); NRBC Flagged by Analyzer 0 % (0-5); Neutrophil # 3.88 X10^3/uL (2.7-7.7); Neutrophil % 65.8 % (47-70); Platelet Count 175 K/mm3 (150-450); RBC Distribution Width CV 12.8 % (11.6-14.6); RBC Distribution Width SD 41.9 fl (35.1-43.9); Red Blood Count 5.57 M/mm3 (4.6-6.2); White Blood Count 5.9 K/mm3 (4.4-11.0)
[2019-05-12 12:10] LABS: Vitamin D,25 Hydroxy 34.6 ng/mL
[2019-05-12 12:16] LABS: ALB/GLOB Ratio 1.1 RATIO (0.9-2.4); AST(SGOT) 21 U/L (15-37); Alanine Aminotransfer ALT/SGPT 39 U/L (16-61); Albumin, Serum 3.7 g/dL (3.2-5.0); Alkaline Phosphatase 80 U/L (45-117); Anion Gap 8 (5-15); BUN 21 mg/dL (7-18); BUN/Creat Ratio 18.8 RATIO (10-20); Calcium,Total 8.6 mg/dL (8.5-10.1); Chloride 107 mmol/L (98-107); Creatinine, Serum 1.12 mg/dL (0.70-1.30); EST Glomerular Filtration Rate 67 mL/min (>60); Est Glom Filt Rate - Afr Amer 81 mL/min (>60); Globulin 3.3 g/dL (2.2-4.2); Glucose 127 mg/dL (74-106); Potassium 4.3 mmol/L (3.5-5.1); Sodium Level 141 mmol/L (136-145); Thyroid Stim Hormone (TSH) 0.15 uIU/mL (0.358-3.74)
== END ==
PROVIDERS: PCP Family Medicine Geriatric Medicine; Visit Provider Family Medicine Geriatric Medicine
DX: I10 Essential (primary) hypertension (principal); E55.9 Vitamin D deficiency, unspecified; F52.8 Other sexual dysfunction not due to a substance or known physiological condition
CPT/HCPCS: 36415; 80053; 82306; 84403; 84443; 85025

== ENCOUNTER → 2019-11-16 09:28 | Outpatient (CLI) | payer MEDICARE, OTHER, SELFPAY ==
[2019-05-11 09:03] VITALS: BMI 30.5
[2019-11-16 12:16] LABS: Absolute Lymphocyte Count 1.37 X10^3/uL (0.83-4.51); Basophil# 0.03 X10^3/uL; Basophil% 0.4 % (0-1); Eosinophil# 0.38 X10^3/uL; Eosinophils% 4.6 % (0-5); Hematocrit 49.8 % (40-54); Hemoglobin 16.7 g/dL (13.0-16.5); Lymphocyte # 1.37 X10^3/ul (4.0); Lymphocyte % 16.6 % (19-41); Mean Corp Hgb Conc 33.5 g/dL (32-36); Mean Corpuscular Hgb 30.4 pg (27.0-32.0); Mean Corpuscular Volume 90.5 fL (80-94); Mean Platelet Vol. 10.3 fl (6.2-12.0); Monocyte# 0.43 X10^3/uL; Monocyte% 5.2 % (0-10); NRBC Flagged by Analyzer 0 % (0-5); Neutrophil % 72.7 % (47-70); Platelet Count 172 K/mm3 (150-450); RBC Distribution Width CV 12.6 % (11.6-14.6); RBC Distribution Width SD 41.5 fl (35.1-43.9); White Blood Count 8.3 K/mm3 (4.4-11.0)
[2019-11-16 12:33] LABS: Vitamin D,25 Hydroxy 42.6 ng/mL
[2019-11-16 12:38] LABS: ALB/GLOB Ratio 1.1 RATIO (0.9-2.4); AST(SGOT) 16 U/L (15-37); Alanine Aminotransfer ALT/SGPT 34 U/L (16-61); Albumin, Serum 3.7 g/dL (3.2-5.0); Alkaline Phosphatase 62 U/L (45-117); Anion Gap 6 (5-15); BUN 21 mg/dL (7-18); BUN/Creat Ratio 18.3 RATIO (10-20); Chloride 104 mmol/L (98-107); Creatinine, Serum 1.15 mg/dL (0.70-1.30); EST Glomerular Filtration Rate 65 mL/min (>60); Est Glom Filt Rate - Afr Amer 78 mL/min (>60); Globulin 3.3 g/dL (2.2-4.2); Glucose 124 mg/dL (74-106); Potassium 4.3 mmol/L (3.5-5.1); Sodium Level 139 mmol/L (136-145); Thyroid Stim Hormone (TSH) 0.14 uIU/mL (0.358-3.74); Uric Acid 5.4 mg/dL (3.5-7.2)
== END ==
PROVIDERS: PCP Family Medicine Geriatric Medicine; Visit Provider Family Medicine Geriatric Medicine
DX: E23.6 Other disorders of pituitary gland (principal); E55.9 Vitamin D deficiency, unspecified; I10 Essential (primary) hypertension; M10.9 Gout, unspecified
CPT/HCPCS: 36415; 80053; 82306; 84403; 84443; 84550; 85025

== ENCOUNTER → 2020-05-16 09:14 | Outpatient (CLI) | payer MEDICARE, OTHER, SELFPAY ==
[2020-05-09 09:17] VITALS: BMI 28.5
[2020-05-16 12:19] LABS: Absolute Lymphocyte Count 1.27 X10^3/uL (0.83-4.51); Absolute Neutrophil Count 4.2 X10^3/uL (2.0-7.7); Basophil# 0.02 X10^3/uL; Basophil% 0.3 % (0-1); Eosinophil# 0.28 X10^3/uL; Eosinophils% 4.6 % (0-5); Hematocrit 48.9 % (40-54); Hemoglobin 16.2 g/dL (13.0-16.5); Lymphocyte # 1.27 X10^3/ul (4.0); Lymphocyte % 20.7 % (19-41); Mean Corp Hgb Conc 33.1 g/dL (32-36); Mean Corpuscular Hgb 31.2 pg (27.0-32.0); Mean Platelet Vol. 10.4 fl (6.2-12.0); Monocyte# 0.34 X10^3/uL; Monocyte% 5.5 % (0-10); NRBC Flagged by Analyzer 0 % (0-5); Neutrophil # 4.21 X10^3/uL (2.7-7.7); Neutrophil % 68.7 % (47-70); Platelet Count 162 K/mm3 (150-450); RBC Distribution Width CV 12.9 % (11.6-14.6); RBC Distribution Width SD 44.6 fl (35.1-43.9); White Blood Count 6.1 K/mm3 (4.4-11.0)
[2020-05-16 12:32] LABS: Vitamin D,25 Hydroxy 43.5 ng/mL
[2020-05-16 12:39] LABS: ALB/GLOB Ratio 1.3 RATIO (0.9-2.4); AST(SGOT) 19 U/L (15-37); Alanine Aminotransfer ALT/SGPT 36 U/L (16-61); Albumin, Serum 3.9 g/dL (3.2-5.0); Alkaline Phosphatase 85 U/L (45-117); Anion Gap 4 (5-15); BUN 20 mg/dL (7-18); BUN/Creat Ratio 16.4 RATIO (10-20); Calcium,Total 9.2 mg/dL (8.5-10.1); Chloride 106 mmol/L (98-107); Creatinine, Serum 1.22 mg/dL (0.70-1.30); EST Glomerular Filtration Rate 60 mL/min (>60); Est Glom Filt Rate - Afr Amer 73 mL/min (>60); Glucose 101 mg/dL (74-106); Potassium 4.3 mmol/L (3.5-5.1); Protein, Total 6.9 g/dL (6.4-8.2); Sodium Level 141 mmol/L (136-145); Thyroid Stim Hormone (TSH) 0.03 uIU/mL (0.358-3.74); Uric Acid 5.9 mg/dL (3.5-7.2)
== END ==
PROVIDERS: PCP Family Medicine Geriatric Medicine; Visit Provider Family Medicine Geriatric Medicine
DX: E23.6 Other disorders of pituitary gland (principal); E55.9 Vitamin D deficiency, unspecified; M10.9 Gout, unspecified; R53.83 Other fatigue
CPT/HCPCS: 36415; 80053; 82306; 84403; 84443; 84550; 85025

== ENCOUNTER → 2020-09-14 10:34 | Outpatient (CLI) | payer MEDICARE, OTHER, SELFPAY ==
[2020-05-09 09:17] VITALS: BMI 28.5
[2020-09-14 12:23] LABS: Absolute Neutrophil Count 4.6 X10^3/uL (2.0-7.7); Basophil# 0.03 X10^3/uL; Basophil% 0.5 % (0-1); Eosinophil# 0.21 X10^3/uL; Eosinophils% 3.3 % (0-5); Hemoglobin 15.9 g/dL (13.0-16.5); Lymphocyte % 15.9 % (19-41); Mean Corp Hgb Conc 33.8 g/dL (32-36); Mean Corpuscular Hgb 30.8 pg (27.0-32.0); Mean Corpuscular Volume 90.9 fL (80-94); Mean Platelet Vol. 10.2 fl (6.2-12.0); Monocyte# 0.45 X10^3/uL; Monocyte% 7.2 % (0-10); NRBC Flagged by Analyzer 0 % (0-5); Neutrophil # 4.56 X10^3/uL (2.7-7.7); Neutrophil % 72.6 % (47-70); Platelet Count 176 K/mm3 (150-450); RBC Distribution Width SD 42.7 fl (35.1-43.9); Red Blood Count 5.17 M/mm3 (4.6-6.2); White Blood Count 6.3 K/mm3 (4.4-11.0)
[2020-09-14 13:04] LABS: ALB/GLOB Ratio 1.2 RATIO (0.9-2.4); AST(SGOT) 31 U/L (15-37); Alanine Aminotransfer ALT/SGPT 50 U/L (16-61); Albumin, Serum 3.8 g/dL (3.2-5.0); Alkaline Phosphatase 97 U/L (45-117); Anion Gap 5 (5-15); BUN 23 mg/dL (7-18); BUN/Creat Ratio 20.7 RATIO (10-20); Calcium,Total 8.9 mg/dL (8.5-10.1); Chloride 107 mmol/L (98-107); Creatinine, Serum 1.11 mg/dL (0.70-1.30); EST Glomerular Filtration Rate 67 mL/min (>60); Est Glom Filt Rate - Afr Amer 81 mL/min (>60); Globulin 3.3 g/dL (2.2-4.2); Glucose 106 mg/dL (74-106); Potassium 4.3 mmol/L (3.5-5.1); Protein, Total 7.1 g/dL (6.4-8.2); Sodium Level 139 mmol/L (136-145); T3 Uptake 34 % (33-40); T4 Free Direct 0.81 ng/dL (0.76-1.46); Thyroid Stim Hormone (TSH) 0.06 uIU/mL (0.358-3.74)
[2020-09-14 13:42] LABS: Vitamin B12 633 pg/mL (211-911)
== END ==
PROVIDERS: PCP Family Medicine Geriatric Medicine; Visit Provider Family Medicine Geriatric Medicine
DX: E05.90 Thyrotoxicosis, unspecified without thyrotoxic crisis or storm (principal); E23.6 Other disorders of pituitary gland; R53.83 Other fatigue
CPT/HCPCS: 36415; 80053; 82607; 84403; 84439; 84443; 84479; 85025

== ENCOUNTER → 2020-11-21 09:23 | Outpatient (CLI) | payer MEDICARE, OTHER, SELFPAY ==
[2020-11-21 12:02] LABS: Absolute Lymphocyte Count 1.51 X10^3/uL (0.83-4.51); Absolute Neutrophil Count 4.7 X10^3/uL (2.0-7.7); Basophil# 0.03 X10^3/uL; Basophil% 0.4 % (0-1); Eosinophil# 0.23 X10^3/uL; Eosinophils% 3.3 % (0-5); Hematocrit 44.8 % (40-54); Hemoglobin 15.5 g/dL (13.0-16.5); Lymphocyte # 1.51 X10^3/ul (0.83-4.51); Lymphocyte % 21.8 % (19-41); Mean Corp Hgb Conc 34.6 g/dL (32-36); Mean Corpuscular Hgb 30.8 pg (27.0-32.0); Mean Corpuscular Volume 88.9 fL (80-94); Mean Platelet Vol. 10.3 fl (6.2-12.0); Monocyte% 5.8 % (0-10); NRBC Flagged by Analyzer 0 % (0-5); Neutrophil # 4.73 X10^3/uL (2.7-7.7); Neutrophil % 68.1 % (47-70); Platelet Count 178 K/mm3 (150-450); RBC Distribution Width CV 12.4 % (11.6-14.6); RBC Distribution Width SD 40.2 fl (35.1-43.9); Red Blood Count 5.04 M/mm3 (4.6-6.2); White Blood Count 6.9 K/mm3 (4.4-11.0)
[2020-11-21 12:17] LABS: Vitamin D,25 Hydroxy 34.2 ng/mL
[2020-11-21 12:32] LABS: ALB/GLOB Ratio 1.1 RATIO (0.9-2.4); AST(SGOT) 27 U/L (15-37); Alanine Aminotransfer ALT/SGPT 44 U/L (16-61); Albumin, Serum 3.5 g/dL (3.2-5.0); Alkaline Phosphatase 70 U/L (45-117); Anion Gap 8 (5-15); BUN 23 mg/dL (7-18); BUN/Creat Ratio 19.8 RATIO (10-20); Calcium,Total 8.9 mg/dL (8.5-10.1); Chloride 105 mmol/L (98-107); Creatinine, Serum 1.16 mg/dL (0.70-1.30); EST Glomerular Filtration Rate 64 mL/min (>60); Est Glom Filt Rate - Afr Amer 77 mL/min (>60); Globulin 3.3 g/dL (2.2-4.2); Glucose 110 mg/dL (74-106); Potassium 4.1 mmol/L (3.5-5.1); Protein, Total 6.8 g/dL (6.4-8.2); Sodium Level 140 mmol/L (136-145); Thyroid Stim Hormone (TSH) 0.14 uIU/mL (0.358-3.74)
== END ==
PROVIDERS: PCP Family Medicine Geriatric Medicine; Visit Provider Family Medicine Geriatric Medicine
DX: E23.6 Other disorders of pituitary gland (principal); E55.9 Vitamin D deficiency, unspecified; I10 Essential (primary) hypertension; M10.9 Gout, unspecified
CPT/HCPCS: 36415; 80053; 82306; 84403; 84443; 84550; 85025

== ENCOUNTER 2021-03-09 11:50 | Outpatient (CLI) | payer MEDICARE, OTHER, SELFPAY ==
[2021-03-09 15:32] LABS: Vitamin D,25 Hydroxy 30.4 ng/mL
[2021-03-09 16:45] LABS: Free T3 2.5 pg/mL (2.18-3.98); Luteinizing Hormone 3.2 mIU/mL; Prolactin 5.2 ng/mL; T4 Free Direct 0.65 ng/dL (0.76-1.46); Thyroid Stim Hormone (TSH) 0.65 uIU/mL (0.358-3.74)
[2021-03-13 12:07] LABS: Testosterone, % Free 2.25 % (1.50-4.20); Testosterone, Free 8.73 ng/dL (5.00-21.00)
[2021-03-13 13:32] LABS: Testosterone, Total 388 ng/dL (264-916); Thyroid Peroxidase AB < 8 IU/mL (0-34)
== END 2021-03-09 23:59 | disposition short-term general hospital (02) ==
LOC: MTLAB 11:52
PROVIDERS: PCP Family Medicine Geriatric Medicine; Referring Provider Internal Medicine Endocrinology, Diabetes & Metabolism; Visit Provider Internal Medicine Endocrinology, Diabetes & Metabolism
DX: E29.1 Testicular hypofunction (principal); E55.9 Vitamin D deficiency, unspecified; E05.90 Thyrotoxicosis, unspecified without thyrotoxic crisis or storm; E03.9 Hypothyroidism, unspecified
CPT/HCPCS: 36415; 82306; 83001; 83002; 84146; 84402; 84403; 84439; 84443; 84481; 86376

== ENCOUNTER 2021-04-10 14:52 | Emergency (ER) | payer MEDICARE, OTHER, SELFPAY ==
[2021-04-10 14:53] VITALS: BP 157/85; PULSE 110; RESP 18; TEMP 35.9; O2SAT 96; BMI 29.0
--- NOTE | 2021-04-10 14:59 | ED.RN ---
DR. MCCLAIN INFORMED OF PT SX. REPORTS SINCE PT SX ARE CURRENTLY RESOLVED, NO STROKE TEAM AT THIS TIME. NIH 0.
--- NOTE | 2021-04-10 15:14 | EKG12_ITS ---
Test Reason : Blood Pressure : / mmHG Vent. Rate : 103 BPM Atrial Rate : 103 BPM P-R Int : 188 ms QRS Dur : 142 ms QT Int : 386 ms P-R-T Axes : 047 -23 110 degrees QTc Int : 505 ms Sinus tachycardia Left bundle branch block Abnormal ECG Confirmed by BERNADETTE DENG, HADLEY ([id number]), editor in chief newspaper [employer] ([id number]) on 04/11/2021 11:42:15 AM Referred By: ANDRES/JOHNY Confirmed By:HADLEY FLEMING MD
--- NOTE | 2021-04-10 15:14 | RAD_ITS ---
STUDY: XR Chest 1 View 04/10/2021 3:50 PM REASON FOR EXAM: Male, 85 years old. CHEST PAIN hypertension COMPARISON: None TECHNIQUE: XR Chest 1 View FINDINGS: There is no demonstrated pleural abnormality. Normal heart size. Normal mediastinum. Normal jefe. Prominent appearing increased interstitial lung markings. Normal visualized pulmonary arteries. There is atherosclerotic calcification of the aortic arch with tortuosity. There are diffuse degenerative changes of the visualized thoracic spine. There is degenerative osteoarthritis of the bilateral shoulders. There is no demonstrated abnormality of the visualized soft tissue structures of the upper abdomen. RAD/Chest 1 View (Portable) IMPRESSION: There are no acute findings. Electronically Signed: Lazarus Dorsey MD at 15:56 EST ,
--- NOTE | 2021-04-10 15:15 | EX.ED.DYSGE1 ---
HPI History of Present Illness Chief Complaint: Neuro S/Sx Informant: patient and spouse/S.O. Narrative Narrative: 85-year-old male with a history of hypertension states that yesterday he had an episode where he felt a strong vibration start at the top of his head and come down over his head like a pocket and each time it got lowered increased intensity. The episode lasted 15 seconds. Then he had difficulty saying words. During that episode he did not have any vision changes speech changes or arm and leg changes. No headache. He states that for years he has had episodes x5 months where he cannot verbalize what he is trying to say. Today when he was driving he wanted to say avocado but could not. At the time of evaluation he has no complaints. [facility] Medical History Diabetes Essential hypertension History of BPH History of gout History of obstructive sleep apnea Hyperthyroidism Male hypogonadism Pure hypercholesterolemia Home Medications multivitamin with minerals 1 ea PO DAILY 03/17/18 [History Last Taken Unknown] losartan 50 mg tablet 50 mg PO DAILY 90 Days #90 tab 05/11/19 [History Last Taken Unknown] probenecid 500 mg tablet 500 mg PO DAILY 05/11/19 [History Last Taken Unknown] saw palmetto 160 mg capsule 160 mg PO BID 05/11/19 [History Last Taken Unknown] turmeric 400 mg capsule 400 mg PO DAILY cap 05/11/19 [History Last Taken Unknown] melatonin 10 mg tablet 5 mg PO HS PRN tab 05/09/20 [History Last Taken Unknown] methimazole 5 mg tablet 2.5 mg PO DAILY #45 tab 02/06/21 [Rx Last Taken Unknown] testosterone 20.25 mg/1.25 gram (1.62 %) transdermal gel pump 1 pump TOPICAL DAILY #75 g 02/06/21 [Rx Last Taken Unknown] testosterone cypionate 200 mg/mL intramuscular oil 100 mg IM Q2W 02/06/21 [History Last Taken Unknown] Allergy/AdvReac Type Severity Reaction Status Date / Time No Known Allergies Allergy Verified 04/10/21 14:53 Family History Mother Hypertension Arthritis Dementia Surgical History History of appendectomy (~1949) History of hand surgery (~03/2016) History of left hip replacement (04/02/18) History of tonsillectomy Social History Smoking Status: Never smoker second hand exposure: No alcohol intake: current alcohol intake frequency: a few times a week caffeine: Yes Type: coffee Number of servings: 4 ROS ROS ED Constitutional Constitutional ED: Denies chills or weight loss Eyes Eyes: Denies change in vision or diplopia ENT ENT ED: Denies ear pain, rhinorrhea or sore throat Cardiovascular Cardiovascular: Denies chest pain, orthopnea, palpitations or racing heartbeat Respiratory/Chest Respiratory/Chest: Denies cough, dyspnea or orthopnea Gastrointestinal Gastrointestinal: Denies abdominal pain, diarrhea, nausea or vomiting Genitourinary Genitourinary ED: Denies dysuria, hematuria or urinary frequency Musculoskeletal Musculoskeletal: Denies arthralgias or myalgias Integumentary Denies abscess or rash Neurologic Neurologic: Reports other Details: see hpi ; Denies headache(s) or weakness Psychiatric Psychiatric: Denies anxiety, depression, suicidal ideation or suicidal thoughts Endocrine Endocrinology: Denies polydipsia, polyphagia or polyuria Allergic/Immunologic Allergic/Immunologic ED: Denies mouth swelling, tongue swelling or urticaria EXAM Physical Exam Const Vital Signs: 04/10/21 14:53 04/10/21 15:20 04/10/21 16:13 Temperature 96.7 F L Temperature Source Temporal Pulse Rate 110 H 107 H 91 Respiratory Rate 18 18 16 Blood Pressure 157/85 H 136/71 H 128/67 H Blood Pressure Mean 109 92 87 Pulse Ox 96 96 96 Oxygen Delivery Method Room Air Room Air Room Air 04/10/21 17:05 Temperature Temperature Source Pulse Rate 94 Respiratory Rate 16 Blood Pressure 160/81 H Blood Pressure Mean Pulse Ox 96 Oxygen Delivery Method Positive well nourished and well developed General Appearance ED: well developed HEENT Reports normocephalic, head/scalp atraumatic, TM's clear and moist mucous membranes Negative for trauma Tympanic Membrane ED: Yes TM's clear Eyes PERRL and EOMs intact bilaterally Neck no lymphadenopathy, supple and no JVD Resp normal respiratory effort and clear to auscultation bilaterally Cardio regular rate, regular rhythm and no murmurs GI normal to inspection, nondistended, normoactive bowel sounds and non-tender Palpation: soft Back/Spine no CVA tenderness and normal ROM Extremity normal to inspection General Extremety ED: Negative for edema General Extremity: Negative for edema Neuro oriented x3 and CN's II-XII intact bilaterally Neuro Narrative: NIH 0 Sensorium / Orientation: alert Motor Exam: strength 5/5 throughout Psych mental status grossly normal Mood & Affect: Negative for depressed or tearful Skin no rashes or lesions noted and no wounds MDM MDM MDM Narrative Medical decision making narrative: White count and CMP showed a creatinine 1.31. CTA of the head neck showed less than 50% bilateral carotid stenosis. No mass or lesions noted. It was noted the thyroid gland was enlarged with calcifications. Patient states he is hyperthyroid and does see Dr. Colvin from endocrinology. Clinically this does not sound like stroke. The dysarthria is been present for years intermittently. Patient will be discharged home instructions to follow-up with primary care return if worsening or concerns Lab Data Attestation: I reviewed the patient's lab results. Labs: Laboratory Results - last 24 hr 04/10/21 04/10/21 15:11 15:11 WBC 8.6 RBC 5.45 Hgb 17.3 H Hct 48.1 MCV 88.3 MCH 31.7 MCHC 36.0 RDW Std Deviation 40.6 RDW Coeff of Willian 12.5 Plt Count 193 MPV 9.9 Immature Gran % (Auto) 0.300 Neut % (Auto) 70.2 H Lymph % (Auto) 22.9 Barton % (Auto) 4.2 Eos % (Auto) 2.1 Baso % (Auto) 0.3 Absolute Neuts (auto) 6.0 Absolute Lymphs (auto) 1.97 Nucleated RBC % 0 Sodium 138 Potassium 4.0 Chloride 105 Carbon Dioxide 28.0 Anion Gap 5 BUN 18 Creatinine 1.31 H Estim Creat Clear Calc 44.71 Est GFR (MDRD) Af Amer 67 Est GFR (MDRD) Non-Af 55 L BUN/Creatinine Ratio 13.7 Glucose 152 H Calcium 9.0 Total Bilirubin 0.70 AST 20 ALT 35 Alkaline Phosphatase 83 Total Protein 7.3 Albumin 3.9 Globulin 3.4 Albumin/Globulin Ratio 1.1 Radiography Diagnostic Testing: Clinical Impression(s) from Imaging Studies Chest X-Ray 04/10/21 15:14 IMPRESSION: There are no acute findings. Electronically Signed: Lazarus Dorsey MD at 15:56 EST , Head/Neck CTA 04/10/21 16:01 IMPRESSION: 1. The thyroid is diffusely enlarged and heterogenous. It contains calcification. This should be further evaluated with ultrasound. This can be performed as an outpatient. This deviates the trachea to the right side. 2. There is mild atherosclerotic plaque formation of the origin of the right and left internal carotid artery with less than 50% cross sectional diameter stenosis. ALL ABOVE CRITERIA BY NASCET. 3. There is calcified plaque formation of the right cavernous carotid artery, with a mild stenosis (less than 50%). There is calcified plaque formation of the left cavernous carotid artery, with a mild stenosis (less than 50%). ALL ABOVE CRITERIA BY NASCET. Electronically Signed: Lazarus Dorsey MD at 16:41 EST , Discharge Plan Triage Chief Complaint: Neuro S/Sx ED Provider: Aleksandar Epstein Dx/Rx/DC Orders Clinical Impression: Paresthesia, Dysarthria, Carotid artery stenosis Instructions: ED Paraesthesias Prescriptions: No Action losartan 50 mg tablet 50 mg PO DAILY 90 Days Qty: 90 RF: 0 saw palmetto 160 mg capsule 160 mg PO BID RF: 0 turmeric 400 mg capsule 400 mg PO DAILY RF: 0 melatonin 10 mg tablet 5 mg PO HS PRNRF: 0 testosterone cypionate 200 mg/mL oil 100 mg IM Q2W RF: 0 methimazole 5 mg tablet 2.5 mg PO DAILY Qty: 45 RF: 1 testosterone 20.25 mg/1.25 gram (1.62 %) gel in metered-dose pump 1 pump topical DAILY Qty: 75 RF: 5 probenecid 500 mg tablet 500 mg PO DAILY RF: 0 multivitamin with minerals 1 EACH tablet 1 ea PO DAILY RF: 0 Primary Care Provider: Glenn Mon Chi Referrals: Glenn Mon Chi, MD [Primary Care Provider] - 1 Week Disposition Disposition: Home, Self Care
[2021-04-10 15:19] VITALS: BMI 29.0
[2021-04-10 15:20] VITALS: BP 136/71; PULSE 107; RESP 18; O2SAT 96
--- NOTE | 2021-04-10 15:21 | ED.RN ---
Addendum entered by Waleska Jose 04/10/21 15:22: no deficits or symptoms today Original Note: pt reports episodes where he is unable to speak, he knows what he wants to say but cant get the words out. nothing or babbling comes out. this has happened once every couple of months for over a year.
[2021-04-10 15:27] LABS: Absolute Lymphocyte Count 1.97 X10^3/uL (0.83-4.51); Basophil# 0.03 X10^3/uL; Basophil% 0.3 % (0-1); Eosinophil# 0.18 X10^3/uL; Eosinophils% 2.1 % (0-5); Hematocrit 48.1 % (40-54); Hemoglobin 17.3 g/dL (13.0-16.5); Lymphocyte # 1.97 X10^3/ul (0.83-4.51); Lymphocyte % 22.9 % (19-41); Mean Corpuscular Hgb 31.7 pg (27.0-32.0); Mean Corpuscular Volume 88.3 fL (80-94); Mean Platelet Vol. 9.9 fl (6.2-12.0); Monocyte# 0.36 X10^3/uL; Monocyte% 4.2 % (0-10); NRBC Flagged by Analyzer 0 % (0-5); Neutrophil # 6.04 X10^3/uL (2.7-7.7); Neutrophil % 70.2 % (47-70); Platelet Count 193 K/mm3 (150-450); RBC Distribution Width CV 12.5 % (11.6-14.6); RBC Distribution Width SD 40.6 fl (35.1-43.9); Red Blood Count 5.45 M/mm3 (4.6-6.2); White Blood Count 8.6 K/mm3 (4.4-11.0)
[2021-04-10 15:58] LABS: ALB/GLOB Ratio 1.1 RATIO (0.9-2.4); AST(SGOT) 20 U/L (15-37); Alanine Aminotransfer ALT/SGPT 35 U/L (16-61); Albumin, Serum 3.9 g/dL (3.2-5.0); Alkaline Phosphatase 83 U/L (45-117); Anion Gap 5 (5-15); BUN 18 mg/dL (7-18); BUN/Creat Ratio 13.7 RATIO (10-20); Chloride 105 mmol/L (98-107); Creatinine, Serum 1.31 mg/dL (0.70-1.30); EST Glomerular Filtration Rate 55 mL/min (>60); Est Glom Filt Rate - Afr Amer 67 mL/min (>60); Estimated Creatinine Clearance 44.71 ml/min; Globulin 3.4 g/dL (2.2-4.2); Glucose 152 mg/dL (74-106); Protein, Total 7.3 g/dL (6.4-8.2); Sodium Level 138 mmol/L (136-145)
--- NOTE | 2021-04-10 16:01 | CT_ITS ---
EXAM: CT ANGIOGRAPHY HEAD AND NECK WITH INTRAVENOUS CONTRAST CLINICAL INDICATION: dysarthria TECHNIQUE: [place] [facility] [place]/head and neck CT angiography protocol performed with intravenous contrast. This CT exam was performed using one or more of the following dose reduction techniques: automated exposure control, adjustment of the mA and/or kV according to patient size, and/or use of iterative reconstruction technique. This report was created using [facility] report generation technology. MIP reconstructed images were created and reviewed. CONTRAST: IV 100mL [id number] COMPARISON: None. FINDINGS: HEAD: RIGHT ANTERIOR CEREBRAL ARTERY: Unremarkable. No significant stenosis at the visualized segments. Anterior communicating artery is present. No aneurysm. RIGHT MIDDLE CEREBRAL ARTERY: Unremarkable. No significant stenosis at the visualized segments. No aneurysm. RIGHT POSTERIOR CEREBRAL ARTERY: Unremarkable. No occlusion or significant stenosis. No aneurysm. LEFT ANTERIOR CEREBRAL ARTERY: Unremarkable. No significant stenosis at the visualized segments. No aneurysm. LEFT MIDDLE CEREBRAL ARTERY: Unremarkable. No significant stenosis at the visualized segments. No aneurysm. LEFT POSTERIOR CEREBRAL ARTERY: Unremarkable. No occlusion or significant stenosis. No aneurysm. BASILAR ARTERY: Unremarkable. No significant stenosis. No aneurysm. GREAT VESSELS OF AORTIC ARCH: Unremarkable. Normal anatomy, patent. OTHER VASCULATURE: No vascular malformation. NECK: RIGHT COMMON CAROTID ARTERY: Unremarkable. No significant stenosis. No dissection or occlusion. RIGHT INTERNAL CAROTID ARTERY: There is calcified plaque formation of the right cavernous carotid artery, with a mild stenosis (less than 50%). There is calcified plaque formation of the left cavernous carotid artery, with a mild stenosis (less than 50%). ALL ABOVE CRITERIA BY NASCET. No dissection or occlusion. RIGHT EXTERNAL CAROTID ARTERY: Unremarkable. No occlusion. RIGHT VERTEBRAL ARTERY: Unremarkable. No significant stenosis. No dissection or occlusion. LEFT COMMON CAROTID ARTERY: Unremarkable. No significant stenosis. No dissection or occlusion. LEFT INTERNAL CAROTID ARTERY: There is mild atherosclerotic plaque formation of the origin of the right and left internal carotid artery with less than 50% cross sectional diameter stenosis. ALL ABOVE CRITERIA BY NASCET. LEFT EXTERNAL CAROTID ARTERY: Unremarkable. No occlusion. LEFT VERTEBRAL ARTERY: Unremarkable. No significant stenosis. No dissection or occlusion. THYROID: The thyroid is diffusely enlarged and heterogenous. It contains calcification. This should be further evaluated with ultrasound. This can be performed as an outpatient. This deviates the trachea to the right side. LUNG APICES: Unremarkable as visualized. SOFT TISSUES: Unremarkable. OTHER FINDINGS: Degenerative changes of the mandibular condyles. There are degenerative findings of the cervical spine. CAROTID STENOSIS REFERENCE USING NASCET CRITERIA: % ICA stenosis = (1 - narrowest ICA diameter/diameter of distal cervical ICA) x 100. Mild - <50% stenosis. Moderate - 50-69% stenosis. Severe - 70-94% stenosis. Near occlusion - 95-99% stenosis. Occluded - 100% stenosis. CT/CTA Head AND Neck W/ Contrast IMPRESSION: 1. The thyroid is diffusely enlarged and heterogenous. It contains calcification. This should be further evaluated with ultrasound. This can be performed as an outpatient. This deviates the trachea to the right side. 2. There is mild atherosclerotic plaque formation of the origin of the right and left internal carotid artery with less than 50% cross sectional diameter stenosis. ALL ABOVE CRITERIA BY NASCET. 3. There is calcified plaque formation of the right cavernous carotid artery, with a mild stenosis (less than 50%). There is calcified plaque formation of the left cavernous carotid artery, with a mild stenosis (less than 50%). ALL ABOVE CRITERIA BY NASCET. Electronically Signed: Lazarus Dorsey MD at 16:41 EST ,
[2021-04-10 16:13] VITALS: BP 128/67; PULSE 91; RESP 16; O2SAT 96
[2021-04-10 17:05] VITALS: BP 160/81; PULSE 94; RESP 16; O2SAT 96
== END 2021-04-10 17:06 | disposition home or self-care (01) ==
PROVIDERS: Emergency Provider Emergency Medicine; PCP Family Medicine Geriatric Medicine; Visit Provider Emergency Medicine
DX: R20.2 Paresthesia of skin (principal); R47.1 Dysarthria and anarthria; I65.29 Occlusion and stenosis of unspecified carotid artery
CPT/HCPCS: 70496; 70498; 71045; 80053; 85025; 93005; 99285; Q9967; A4216

== ENCOUNTER 2021-04-19 08:57 | Outpatient (CLI) | payer MEDICARE, OTHER, SELFPAY ==
--- NOTE | 2021-04-19 09:00 | US_ITS ---
STUDY: THYROID ULTRASOUND REASON FOR EXAM: Male, 85 years old. Goiter on [address] TECHNIQUE: Ultrasound evaluation of the thyroid was performed with real-time and static barger-scale imaging. COMPARISON: CT angiogram neck April 10, 2021 FINDINGS: RIGHT LOBE: The right lobe of the thyroid gland measures 3.6 x 1.5 x 1.6 cm. There is a homogeneous echotexture. There is a hypoechoic nodule measuring 1.1 x 0.8 x 0.8 cm within the upper pole. LEFT LOBE: The left lobe of the thyroid gland measures 8.9 x 4.5 x 4.1 cm. There is a homogeneous echotexture. There is a large complex mixed echogenicity solid and cystic partially vascular dominant mass within the left thyroid measuring 5.8 x3.6 x 3.3 cm ISTHMUS: The isthmus measures 3 mm. . The regional lymph nodes are normal. US/Thyroid IMPRESSION: Large and dominant 5.8 x 3.6 x 3.3 cm mass within the left thyroid with cystic and solid possibly central necrotic components. A dominant unilateral thyroid mass raises concern for neoplasm. Recommend further evaluation with consideration for possible biopsy. Normal-size right thyroid gland. Right-sided unilateral 1.1 x 0.8 x 0.8 cm low attenuating hypoechoic nodule without significant vascularity. Electronically Signed: Payton Villalpando MD at 4:28 EST ,
== END 2021-04-19 23:59 | disposition home or self-care (01) ==
LOC: US 09:00
PROVIDERS: PCP Family Medicine Geriatric Medicine; Referring Provider Internal Medicine Endocrinology, Diabetes & Metabolism; Visit Provider Internal Medicine Endocrinology, Diabetes & Metabolism
DX: E04.9 Nontoxic goiter, unspecified (principal)
CPT/HCPCS: 76536

== ENCOUNTER 2021-04-20 16:01 | Outpatient (CLI) | payer MEDICARE, OTHER, SELFPAY ==
[2021-04-20 18:09] LABS: Free T3 3.2 pg/mL (2.18-3.98); T4 Free Direct 1.07 ng/dL (0.76-1.46); Thyroid Stim Hormone (TSH) 0.07 uIU/mL (0.358-3.74)
== END 2021-04-20 23:59 | disposition home or self-care (01) ==
LOC: MTLAB 16:03
PROVIDERS: PCP Family Medicine Geriatric Medicine; Referring Provider Internal Medicine Endocrinology, Diabetes & Metabolism; Visit Provider Internal Medicine Endocrinology, Diabetes & Metabolism
DX: E05.90 Thyrotoxicosis, unspecified without thyrotoxic crisis or storm (principal)
CPT/HCPCS: 36415; 84439; 84443; 84481

== ENCOUNTER 2021-05-22 09:44 | Outpatient (CLI) | payer MEDICARE, OTHER, SELFPAY ==
[2021-05-22 11:38] LABS: Absolute Lymphocyte Count 1.64 X10^3/uL (0.83-4.51); Absolute Neutrophil Count 4.5 X10^3/uL (2.0-7.7); Basophil# 0.03 X10^3/uL; Basophil% 0.4 % (0-1); Eosinophil# 0.24 X10^3/uL; Eosinophils% 3.5 % (0-5); Hemoglobin 15.8 g/dL (13.0-16.5); Lymphocyte # 1.64 X10^3/ul (0.83-4.51); Lymphocyte % 23.8 % (19-41); Mean Corp Hgb Conc 35.9 g/dL (32-36); Mean Corpuscular Hgb 31.5 pg (27.0-32.0); Mean Corpuscular Volume 87.6 fL (80-94); Mean Platelet Vol. 10.5 fl (6.2-12.0); Monocyte# 0.46 X10^3/uL; Monocyte% 6.7 % (0-10); NRBC Flagged by Analyzer 0 % (0-5); Neutrophil # 4.48 X10^3/uL (2.7-7.7); Platelet Count 195 K/mm3 (150-450); RBC Distribution Width CV 12.8 % (11.6-14.6); RBC Distribution Width SD 40.7 fl (35.1-43.9); Red Blood Count 5.02 M/mm3 (4.6-6.2); White Blood Count 6.9 K/mm3 (4.4-11.0)
[2021-05-22 11:58] LABS: Vitamin D,25 Hydroxy 31.1 ng/mL
[2021-05-22 12:02] LABS: BUN 18 mg/dL (7-18); Creatinine, Serum 1.06 mg/dL (0.70-1.30); EST Glomerular Filtration Rate 71 mL/min (>60); Glucose 127 mg/dL (74-106)
[2021-05-22 12:03] LABS: ALB/GLOB Ratio 1.2 RATIO (0.9-2.4); AST(SGOT) 18 U/L (15-37); Alanine Aminotransfer ALT/SGPT 36 U/L (16-61); Albumin, Serum 3.7 g/dL (3.2-5.0); Alkaline Phosphatase 84 U/L (45-117); Anion Gap 4 (5-15); Calcium,Total 8.8 mg/dL (8.5-10.1); Chloride 107 mmol/L (98-107); Est Glom Filt Rate - Afr Amer 86 mL/min (>60); Globulin 3.2 g/dL (2.2-4.2); Protein, Total 6.9 g/dL (6.4-8.2); Sodium Level 139 mmol/L (136-145); Thyroid Stim Hormone (TSH) 0.01 uIU/mL (0.358-3.74); Uric Acid 6.1 mg/dL (3.5-7.2)
[2021-05-23 13:33] LABS: T4 Free Direct 1.05 ng/dL (0.76-1.46)
== END 2021-05-22 23:59 | disposition home or self-care (01) ==
LOC: POLAB3 09:45
PROVIDERS: Internal Medicine Endocrinology, Diabetes & Metabolism; PCP Family Medicine Geriatric Medicine; Visit Provider Family Medicine Geriatric Medicine
DX: E11.9 Type 2 diabetes mellitus without complications (principal); E23.6 Other disorders of pituitary gland; E55.9 Vitamin D deficiency, unspecified; I10 Essential (primary) hypertension; M10.9 Gout, unspecified
CPT/HCPCS: 36415; 80053; 82306; 84403; 84439; 84443; 84481; 84550; 85025

== ENCOUNTER → 2021-07-05 | Outpatient (CLI) | payer MEDICARE, OTHER, SELFPAY ==
--- NOTE | 2021-07-05 09:49 | TELEMED_ITS ---
[facility] has confirmed receipt of a request for visit. This document confirms receipt of the order initiating the consult. To find the results of the consultation, please view the patient's reports for the scanned Telemed Consult.
== END | disposition home or self-care (01) ==
LOC: PSN 08:28
PROVIDERS: PCP Family Medicine Geriatric Medicine; Visit Provider Psychiatry & Neurology Neurology
DX: G45.9 Transient cerebral ischemic attack, unspecified (principal); R47.01 Aphasia
CPT/HCPCS: 95819

== ENCOUNTER → 2021-09-11 | Outpatient (CLI) | payer MEDICARE, OTHER, SELFPAY ==
[2021-09-11 12:14] LABS: Absolute Lymphocyte Count 1.15 X10^3/uL (0.83-4.51); Absolute Neutrophil Count 4.3 X10^3/uL (2.0-7.7); Basophil# 0.03 X10^3/uL; Basophil% 0.5 % (0-1); Eosinophil# 0.24 X10^3/uL; Hematocrit 43.4 % (40-54); Hemoglobin 14.6 g/dL (13.0-16.5); Lymphocyte # 1.15 X10^3/ul (0.83-4.51); Mean Corp Hgb Conc 33.6 g/dL (32-36); Mean Corpuscular Hgb 31.3 pg (27.0-32.0); Mean Corpuscular Volume 92.9 fL (80-94); Mean Platelet Vol. 10.8 fl (6.2-12.0); Monocyte# 0.31 X10^3/uL; Monocyte% 5.1 % (0-10); NRBC Flagged by Analyzer 0 % (0-5); Neutrophil % 70.9 % (47-70); Platelet Count 163 K/mm3 (150-450); RBC Distribution Width CV 13.3 % (11.6-14.6); RBC Distribution Width SD 45.3 fl (35.1-43.9); Red Blood Count 4.67 M/mm3 (4.6-6.2); White Blood Count 6.1 K/mm3 (4.4-11.0)
[2021-09-11 12:21] LABS: Anion Gap 8 (5-15); BUN 20 mg/dL (7-18); Calcium,Total 8.8 mg/dL (8.5-10.1); Chloride 106 mmol/L (98-107); Creatinine, Serum 1.11 mg/dL (0.70-1.30); EST Glomerular Filtration Rate 67 mL/min (>60); Est Glom Filt Rate - Afr Amer 81 mL/min (>60); Glucose 100 mg/dL (74-106); Potassium 4.1 mmol/L (3.5-5.1); Sodium Level 142 mmol/L (136-145)
[2021-09-11 12:32] LABS: Free T3 1.7 pg/mL (2.18-3.98); T4 Free Direct 0.62 ng/dL (0.76-1.46)
== END | disposition home or self-care (01) ==
PROVIDERS: Physician Assistant Surgical; PCP Family Medicine Geriatric Medicine; Referring Provider Internal Medicine Endocrinology, Diabetes & Metabolism; Visit Provider Internal Medicine Endocrinology, Diabetes & Metabolism
DX: Z01.818 Encounter for other preprocedural examination (principal); E05.90 Thyrotoxicosis, unspecified without thyrotoxic crisis or storm
CPT/HCPCS: 36415; 80048; 84439; 84443; 84481; 85025

== ENCOUNTER → 2021-10-27 | Outpatient (CLI) | payer MEDICARE, OTHER, SELFPAY ==
[2021-10-27 17:51] LABS: T4 Free Direct 0.75 ng/dL (0.76-1.46); Thyroid Stim Hormone (TSH) 4.09 uIU/mL (0.358-3.74)
[2021-10-30 09:22] LABS: Vitamin B12 306 pg/mL (211-911)
[2021-11-02 00:07] LABS: Free Kappa Light Chains 17.2 mg/L (3.3-19.4); Free Lambda Light Chains 15.1 mg/L (5.7-26.3)
[2021-11-02 09:52] LABS: Vitamin B1, Thiamine 155.6 nmol/L (66.5-200.0)
== END | disposition home or self-care (01) ==
LOC: MTLAB 15:18
PROVIDERS: Psychiatry & Neurology Neurology; PCP Family Medicine Geriatric Medicine; Referring Provider Internal Medicine Endocrinology, Diabetes & Metabolism; Visit Provider Internal Medicine Endocrinology, Diabetes & Metabolism
DX: G62.9 Polyneuropathy, unspecified (principal); E55.9 Vitamin D deficiency, unspecified; E89.0 Postprocedural hypothyroidism
CPT/HCPCS: 36415; 82607; 82652; 82746; 83883; 84425; 84439; 84443

== ENCOUNTER → 2021-11-27 | Outpatient (CLI) | payer MEDICARE, OTHER, SELFPAY ==
[2021-11-27 12:22] LABS: Absolute Lymphocyte Count 1.73 X10^3/uL (0.83-4.51); Absolute Neutrophil Count 5.9 X10^3/uL (2.0-7.7); Basophil# 0.04 X10^3/uL; Basophil% 0.5 % (0-1); Eosinophils% 3.5 % (0-5); Hematocrit 45.2 % (40-54); Hemoglobin 15.7 g/dL (13.0-16.5); Lymphocyte # 1.73 X10^3/ul (0.83-4.51); Lymphocyte % 20.4 % (19-41); Mean Corp Hgb Conc 34.7 g/dL (32-36); Mean Corpuscular Hgb 31.3 pg (27.0-32.0); Mean Corpuscular Volume 90.2 fL (80-94); Mean Platelet Vol. 10.6 fl (6.2-12.0); Monocyte# 0.44 X10^3/uL; Monocyte% 5.2 % (0-10); NRBC Flagged by Analyzer 0 % (0-5); Neutrophil # 5.92 X10^3/uL (2.7-7.7); Neutrophil % 69.9 % (47-70); Platelet Count 184 K/mm3 (150-450); RBC Distribution Width CV 12.8 % (11.6-14.6); RBC Distribution Width SD 41.5 fl (35.1-43.9); Red Blood Count 5.01 M/mm3 (4.6-6.2); White Blood Count 8.5 K/mm3 (4.4-11.0)
[2021-11-27 12:52] LABS: Vitamin D,25 Hydroxy 37.9 ng/mL
[2021-11-27 13:09] LABS: ALB/GLOB Ratio 1.1 RATIO (0.9-2.4); AST(SGOT) 18 U/L (15-37); Alanine Aminotransfer ALT/SGPT 33 U/L (16-61); Albumin, Serum 3.8 g/dL (3.2-5.0); Alkaline Phosphatase 66 U/L (45-117); Anion Gap 9 (5-15); BUN 22 mg/dL (7-18); BUN/Creat Ratio 17.1 RATIO (10-20); Chloride 106 mmol/L (98-107); Creatinine, Serum 1.29 mg/dL (0.70-1.30); EST Glomerular Filtration Rate 56 mL/min (>60); Est Glom Filt Rate - Afr Amer 68 mL/min (>60); Globulin 3.4 g/dL (2.2-4.2); Glucose 110 mg/dL (74-106); Potassium 4.2 mmol/L (3.5-5.1); Protein, Total 7.2 g/dL (6.4-8.2); Sodium Level 140 mmol/L (136-145); Thyroid Stim Hormone (TSH) 4.85 uIU/mL (0.358-3.74); Uric Acid 6.3 mg/dL (3.5-7.2)
== END | disposition home or self-care (01) ==
LOC: POLAB3 09:05
PROVIDERS: PCP Family Medicine Geriatric Medicine; Visit Provider Family Medicine Geriatric Medicine
DX: E11.9 Type 2 diabetes mellitus without complications (principal); E23.6 Other disorders of pituitary gland; E55.9 Vitamin D deficiency, unspecified; I10 Essential (primary) hypertension; M10.9 Gout, unspecified
CPT/HCPCS: 36415; 80053; 82306; 84403; 84443; 84550; 85025

== ENCOUNTER → 2022-01-23 | Outpatient (CLI) | payer MEDICARE, OTHER, SELFPAY ==
[2022-01-23 18:33] LABS: Iron Binding Capacity,Total 304 ug/dL (250-450); Thyroid Stim Hormone (TSH) 6.38 uIU/mL (0.358-3.74)
[2022-01-24 09:36] LABS: T4 Free Direct 0.78 ng/dL (0.76-1.46)
== END | disposition home or self-care (01) ==
LOC: POLAB3 14:40
PROVIDERS: PCP Family Medicine Geriatric Medicine; Visit Provider Family Medicine Geriatric Medicine
DX: E03.9 Hypothyroidism, unspecified (principal)
CPT/HCPCS: 36415; 83550; 84439; 84443; 84479

== ENCOUNTER → 2022-03-09 | Outpatient (CLI) | payer MEDICARE, OTHER, SELFPAY ==
[2022-03-09 18:21] LABS: T3 Uptake 34 % (33-40); T4 Free Direct 0.97 ng/dL (0.76-1.46); Thyroid Stim Hormone (TSH) 2.79 uIU/mL (0.358-3.74)
[2022-03-09 18:43] LABS: T7 / Free Thyroxin Index 0.3 (1.4-4.5)
[2022-03-15 21:45] LABS: Thyroxin Bind Glob (TBG) 15 ug/mL (13-39)
== END | disposition home or self-care (01) ==
LOC: MTLAB 14:11
PROVIDERS: PCP Family Medicine Geriatric Medicine; Referring Provider Family Medicine Geriatric Medicine; Visit Provider Family Medicine Geriatric Medicine
DX: E03.9 Hypothyroidism, unspecified (principal)
CPT/HCPCS: 36415; 84439; 84442; 84443; 84479

== ENCOUNTER → 2022-04-05 | Outpatient (CLI) | payer MEDICARE, OTHER, SELFPAY ==
[2022-04-05 17:48] LABS: Absolute Lymphocyte Count 1.65 X10^3/uL (0.83-4.51); Basophil# 0.03 X10^3/uL; Basophil% 0.4 % (0-1); Eosinophil# 0.28 X10^3/uL; Eosinophils% 3.8 % (0-5); Hematocrit 44.5 % (40-54); Hemoglobin 14.9 g/dL (13.0-16.5); Lymphocyte # 1.65 X10^3/ul (0.83-4.51); Lymphocyte % 22.3 % (19-41); Mean Corp Hgb Conc 33.5 g/dL (32-36); Mean Corpuscular Hgb 30.8 pg (27.0-32.0); Mean Corpuscular Volume 91.9 fL (80-94); Mean Platelet Vol. 10.7 fl (6.2-12.0); Monocyte# 0.37 X10^3/uL; NRBC Flagged by Analyzer 0 % (0-5); Neutrophil # 5.04 X10^3/uL (2.7-7.7); Platelet Count 188 K/mm3 (150-450); RBC Distribution Width CV 12.5 % (11.6-14.6); RBC Distribution Width SD 42.1 fl (35.1-43.9); Red Blood Count 4.84 M/mm3 (4.6-6.2); White Blood Count 7.4 K/mm3 (4.4-11.0)
[2022-04-05 18:04] LABS: Anion Gap 6 (5-15); BUN 29 mg/dL (7-18); BUN/Creat Ratio 21.8 RATIO (10-20); Chloride 107 mmol/L (98-107); Creatinine, Serum 1.33 mg/dL (0.70-1.30); EST Glomerular Filtration Rate 54 mL/min (>60); Est Glom Filt Rate - Afr Amer 66 mL/min (>60); Glucose 139 mg/dL (74-106); Potassium 3.9 mmol/L (3.5-5.1); Sodium Level 140 mmol/L (136-145)
== END | disposition home or self-care (01) ==
LOC: MTLAB 15:02
PROVIDERS: PCP Family Medicine Geriatric Medicine; Referring Provider Physician Assistant Surgical; Visit Provider Physician Assistant Surgical
DX: Z01.818 Encounter for other preprocedural examination (principal)
CPT/HCPCS: 36415; 80048; 85025

== ENCOUNTER → 2022-05-29 | Outpatient (CLI) | payer MEDICARE, OTHER, SELFPAY ==
[2022-05-29 12:30] LABS: Absolute Lymphocyte Count 1.44 X10^3/uL (0.83-4.51); Absolute Neutrophil Count 4.6 X10^3/uL (2.0-7.7); Basophil# 0.03 X10^3/uL; Basophil% 0.4 % (0-1); Eosinophil# 0.21 X10^3/uL; Eosinophils% 3.1 % (0-5); Hematocrit 43.8 % (40-54); Hemoglobin 15.2 g/dL (13.0-16.5); Lymphocyte # 1.44 X10^3/ul (0.83-4.51); Lymphocyte % 21.4 % (19-41); Mean Corp Hgb Conc 34.7 g/dL (32-36); Mean Corpuscular Volume 89.4 fL (80-94); Mean Platelet Vol. 10.3 fl (6.2-12.0); NRBC Flagged by Analyzer 0 % (0-5); Neutrophil # 4.61 X10^3/uL (2.7-7.7); Neutrophil % 68.7 % (47-70); Platelet Count 188 K/mm3 (150-450); RBC Distribution Width CV 12.4 % (11.6-14.6); RBC Distribution Width SD 40.7 fl (35.1-43.9); White Blood Count 6.7 K/mm3 (4.4-11.0)
[2022-05-29 13:10] LABS: Vitamin D,25 Hydroxy 31.7 ng/mL
[2022-05-29 13:16] LABS: ALB/GLOB Ratio 1.2 RATIO (0.9-2.4); AST(SGOT) 20 U/L (15-37); Alanine Aminotransfer ALT/SGPT 37 U/L (16-61); Albumin, Serum 3.8 g/dL (3.2-5.0); Alkaline Phosphatase 72 U/L (45-117); Anion Gap 4 (5-15); BUN 19 mg/dL (7-18); BUN/Creat Ratio 15.3 RATIO (10-20); Calcium,Total 9.3 mg/dL (8.5-10.1); Chloride 107 mmol/L (98-107); Creatinine, Serum 1.24 mg/dL (0.70-1.30); EST Glomerular Filtration Rate 59 mL/min (>60); Est Glom Filt Rate - Afr Amer 71 mL/min (>60); Globulin 3.3 g/dL (2.2-4.2); Glucose 125 mg/dL (74-106); Potassium 4.5 mmol/L (3.5-5.1); Protein, Total 7.1 g/dL (6.4-8.2); Sodium Level 138 mmol/L (136-145); Thyroid Stim Hormone (TSH) 3.32 uIU/mL (0.358-3.74); Uric Acid 5.9 mg/dL (3.5-7.2)
== END | disposition home or self-care (01) ==
LOC: LAB 11:29
PROVIDERS: PCP Family Medicine Geriatric Medicine; Referring Provider Family Medicine Geriatric Medicine; Visit Provider Family Medicine Geriatric Medicine
DX: E55.9 Vitamin D deficiency, unspecified (principal); E11.9 Type 2 diabetes mellitus without complications; I10 Essential (primary) hypertension; E29.1 Testicular hypofunction; M10.9 Gout, unspecified
CPT/HCPCS: 36415; 80053; 82306; 84403; 84443; 84550; 85025

== ENCOUNTER → 2022-11-29 | Outpatient (CLI) | payer MEDICARE, OTHER, SELFPAY ==
[2022-11-29 11:54] LABS: Absolute Lymphocyte Count 1.41 X10^3/uL (0.83-4.51); Absolute Neutrophil Count 4.1 X10^3/uL (2.0-7.7); Basophil# 0.03 X10^3/uL; Basophil% 0.5 % (0-1); Eosinophil# 0.24 X10^3/uL; Eosinophils% 3.9 % (0-5); Hematocrit 43.3 % (40-54); Lymphocyte # 1.41 X10^3/ul (0.83-4.51); Lymphocyte % 22.9 % (19-41); Mean Corp Hgb Conc 34.6 g/dL (32-36); Mean Corpuscular Hgb 31.3 pg (27.0-32.0); Mean Corpuscular Volume 90.2 fL (80-94); Mean Platelet Vol. 9.8 fl (6.2-12.0); Monocyte# 0.34 X10^3/uL; Monocyte% 5.5 % (0-10); NRBC Flagged by Analyzer 0 % (0-5); Neutrophil # 4.09 X10^3/uL (2.7-7.7); Neutrophil % 66.2 % (47-70); Platelet Count 178 K/mm3 (150-450); RBC Distribution Width CV 12.4 % (11.6-14.6); RBC Distribution Width SD 41.4 fl (35.1-43.9); White Blood Count 6.2 K/mm3 (4.4-11.0)
[2022-11-29 12:31] LABS: Vitamin D,25 Hydroxy 53.2 ng/mL
[2022-11-29 13:37] LABS: ALB/GLOB Ratio 1.3 RATIO (0.9-2.4); AST(SGOT) 19 U/L (15-37); Alanine Aminotransfer ALT/SGPT 37 U/L (16-61); Alkaline Phosphatase 69 U/L (45-117); Anion Gap 3 (5-15); BUN 30 mg/dL (7-18); BUN/Creat Ratio 26.5 RATIO (10-20); Calcium,Total 9.1 mg/dL (8.5-10.1); Chloride 106 mmol/L (98-107); Cholesterol 202 mg/dL (200); Creatinine, Serum 1.13 mg/dL (0.70-1.30); EST Glomerular Filtration Rate 65 mL/min (>60); Est Glom Filt Rate - Afr Amer 79 mL/min (>60); Globulin 3.1 g/dL (2.2-4.2); Glucose 123 mg/dL (74-106); High Density Lipoprotein 45 mg/dL; Potassium 4.2 mmol/L (3.5-5.1); Protein, Total 7.1 g/dL (6.4-8.2); Sodium Level 135 mmol/L (136-145); Thyroid Stim Hormone (TSH) 2.36 uIU/mL (0.358-3.74); Triglycerides 277 mg/dL; Uric Acid 5.8 mg/dL (3.5-7.2); Very Low Density Lipoprotein 55 mg/dL (5-40)
== END | disposition home or self-care (01) ==
LOC: LAB 11:25
PROVIDERS: PCP Family Medicine Geriatric Medicine; Visit Provider Family Medicine Geriatric Medicine
DX: E11.65 Type 2 diabetes mellitus with hyperglycemia (principal); I10 Essential (primary) hypertension; M10.9 Gout, unspecified; E55.9 Vitamin D deficiency, unspecified
CPT/HCPCS: 36415; 80053; 80061; 82306; 84443; 84550; 85025

== ENCOUNTER → 2022-12-25 | Outpatient (CLI) | payer MEDICARE, OTHER, SELFPAY ==
--- NOTE | 2022-12-25 09:03 | CDU_ITS ---
Reason For Study: Carotid Stenosis Rt. Velocities/BP Lt. Velocities/BP Prox CCA 82.0/11.7 cm/sec. Prox CCA 82.0/14.9 cm/sec. Mid CCA 74.3/16.0 cm/sec. Mid CCA 72.1/14.9 cm/sec. Dist CCA 72.1/16.0 cm/sec. Dist CCA 86.4/16.0 cm/sec. Prox ICA 73.2/12.7 cm/sec. Prox ICA 58.9/17.1 cm/sec. Mid ICA 71.0/17.1 cm/sec. Mid ICA 77.6/23.7 cm/sec. Dist ICA 86.4/21.5 cm/sec. Dist ICA 82.0/22.6 cm/sec. Rt. ICA/CCA = 1.2. Lt. ICA/CCA = 1.1. Prox ECA 98.5/10.6 cm/sec. Prox ECA 91.9/11.7 cm/sec. Rt. Vert. 35.4/5.8 cm/sec. Lt. Vert. 44.6/9.5 cm/sec. Right Extracranial There is homogeneous, smooth atherosclerotic plaque noted in the right common carotid artery. There is heterogeneous, irregular atherosclerotic plaque noted in the right internal carotid artery. There is intimal thickening but no significant atherosclerotic plaque noted in the right external carotid artery. Antegrade flow is noted in the right vertebral artery. Left Extracranial There is homogeneous, smooth atherosclerotic plaque noted in the left common carotid artery. There is heterogeneous, irregular atherosclerotic plaque noted in the left internal carotid artery. There is heterogeneous, irregular atherosclerotic plaque noted in the left external carotid artery. Antegrade flow is noted in the left vertebral artery. Procedure Carotid Duplex 00461. This is a Carotid Duplex examination using B-mode, color flow and specral Doppler. The exam was diagnostic. Exam performed in department. VL/Carotid Duplex Ultrasound Interpretation Summary Mild (<50%) stenosis right extracranial internal carotid. Mild (<50%) stenosis left extracranial internal carotid. Patent and antegrade vertebrals bilaterally. Ordering Physician: Glenn Mon Chi Referring Physician: Glenn Mon Chi Performed By: Geoffrey Branham RVT
== END | disposition home or self-care (01) ==
LOC: CVS 09:00
PROVIDERS: PCP Family Medicine Geriatric Medicine; Referring Provider Family Medicine Geriatric Medicine; Visit Provider Family Medicine Geriatric Medicine
DX: I65.23 Occlusion and stenosis of bilateral carotid arteries (principal)
CPT/HCPCS: 93880

== ENCOUNTER → 2023-02-14 | Outpatient (CLI) | payer MEDICARE, OTHER, SELFPAY ==
[2023-02-14 17:53] LABS: Anion Gap 7 (5-15); BUN 21 mg/dL (7-18); BUN/Creat Ratio 16.2 RATIO (10-20); Calcium,Total 8.8 mg/dL (8.5-10.1); Chloride 105 mmol/L (98-107); EST Glomerular Filtration Rate 56 mL/min (>60); Est Glom Filt Rate - Afr Amer 67 mL/min (>60); Glucose 179 mg/dL (74-106); Potassium 3.8 mmol/L (3.5-5.1); Sodium Level 139 mmol/L (136-145)
== END | disposition home or self-care (01) ==
LOC: POLAB3 15:31
PROVIDERS: PCP Family Medicine Geriatric Medicine; Visit Provider Family Medicine Geriatric Medicine
DX: I10 Essential (primary) hypertension (principal)
CPT/HCPCS: 36415; 80048

== ENCOUNTER → 2023-03-07 | Outpatient (CLI) | payer MEDICARE, OTHER, SELFPAY ==
--- OUTSIDE RECORDS SUMMARY | 2023-03-07 18:09 | XMS RPT_ITS | CCD ---
Author Name Unknown Address [address] [place] [address] Organization [facility] Care Team Providers Care Cruise Agent Name Role Phone ALEX RICE Unavailable Unavailable [facility] Unavailable Unavailable [facility] Unavailable Unavailable Ofe Pineda Chi Primary Care Provider Yung Pablo Unavailable Ofe Pineda Chi Primary Care Provider [phone] Yung Pablo Unavailable Sveta Pineda Unavailable Unavailable Unavailable Dr. Sveta Pineda Primary Care Unavailable KRISEDISHA Referring Unavaila ble KRISE, DISHA MARIE Attending Unavaila ble KRISEDISHA Attending Unavaila Dr. Sveta Lopez Primary Care Unavailable Self, Referral Referring Unavailable OFE PINEDA CHI Primary Care Unavailable DROJEFRY RUIZ Attending Unavailab le Allergies Allergy Classification Reported Allergen(s) Allergy Type Date of Onset Reaction(s) Facility (4 sources) Scopolamine; Translations: [SCOPOLAMINE] Drug Allergy 08-03-2021 Mental Status Change [facility] Medications Completed/Discontinued Medications Medication Drug Class(es) Dates Sig (Normalized) Sig (Original) Blood Glucose Control High and Low (ACCU-CHEK GUIDE L1-L2 CTRL AYANA) soln (4 sources) Start: 03-12-2017 End: 08-01-2021 Blood Glucose Control High and Low (ACCU-CHEK GUIDE L1-L2 CTRL AYANA) soln Indications: Controlled type 2 diabetes mellitus without complication, without long-term current use of insulin (HCC) Use as directed 1 Each 0 03/12/2017 08/01/2021 Discontinued Problems Active Problems Problem Classification Problem Date Documented Da te Episodic/Chronic Conduction disorders (5 sources) Left bundle branch block; Translations: [Left bundle-branch block, unspecified] Onset: 08-01-2021 Chronic Diabetes mellitus without complication (8 sources) Type 2 diabetes mellitus; Translations: [Type 2 diabetes mellitus without complications] Onset: 04-19-2014 04-19-2014 Chronic Essential hypertension (8 sources) Hypertensive disorder; Translations: [Essential (primary) hypertension] Onset: 04-19-2014 04-19-2014 Chronic Gout and other crystal arthropathies (7 sources) Gout; Translations: [Gout, unspecified] Onset: 04-19-2014 04-19-2014 Chronic Nonspecific chest pain (1 source) Chest pain, unspecified; Translations: [Chest pain, unspecified type] Onset: 02-10-2023 Episodic Other endocrine disorders (8 sources) Hypopituitarism; Translations: [Hypopituitarism] Onset: 02-10-2013 08-24-2019 Chronic Other endocrine disorders (7 sources) Male hypogonadism; Translations: [Testicular hypofunction] Onset: 08-24-2019 08-24-2019 Chronic Residual codes; unclassified (8 sources) Sleep apnea; Translations: [Sleep apnea, unspecified] Onset: 04-19-2014 02-27-2021 Chronic Residual codes; unclassified (2 sources) Obstructive sleep apnea of adult; Translations: [Obstructive sleep apnea (adult)(pediatric)] Chronic Residual codes; unclassified (1 source) Obstructive sleep apnea (adult) (pediatric); Translations: [Obstructive sleep apnea (adult) (pediatric)] Onset: 08-08-2022 Chronic Thyroid disorders (18 sources) Subclinical hyperthyroidism; Translations: [Thyrotoxicosis, unspecified without thyrotoxic crisis or storm] Onset: 02-10-2013 04-26-2014 Chronic Unclassified (1 source) Unknown / UNK(Unknown) Onset: 01-10-2017 Past or Other Problems Problem Classification Problem Date Documented Date Episodic/Chronic Other bone disease and musculoskeletal deformities (7 sources) Osteopenia; Translations: [Other specified disorders of bone density and structure, unspecified forearm] Onset: 08-24-2019 08-24-2019 Episodic Other connective tissue disease (7 sources) Shoulder girdle weakness; Translations: [Other symptoms and signs involving the musculoskeletal system] Onset: 03-12-2017 03-12-2017 Episodic Other hematologic conditions (8 sources) Erythrocytosis; Translations: [Secondary polycythemia] Onset: 04-19-2014 04-19-2014 Episodic Other non-traumatic joint disorders (7 sources) Chronic pain of left upper limb; Translations: [Pain in left shoulder] Onset: 03-12-2017 03-12-2017 Episodic Other non-traumatic joint disorders (7 sources) Stiffness of left shoulder; Translations: [Stiffness of left shoulder, not elsewhere classified] Onset: 03-12-2017 03-12-2017 Episodic Other screening for suspected conditions (not mental disorders or infectious disease) (7 sources) Thyroid function tests abnormal; Translations: [Abnormal results of thyroid function studies] Onset: 08-24-2019 08-24-2019 Episodic Sprains and strains (7 sources) Shoulder strain; Translations: [Strain of unspecified muscle, fascia and tendon at shoulder and upper arm level, left arm, initial encounter] Onset: 03-12-2017 03-12-2017 Episodic Unclassified (1 source) Benign prostatic hyperplasia with lower urinary tract symptoms Onset: 01-10-2017 Results Test Name Value Interpretation Reference Range Facil ity Vital Signs Date Time Vital Sign Value Performing Clinician Alex diaz 08-08-2022 11:00-0400 8 1 Ofe-Lester Pineda Work Phone: FN-Vvgxaujsev-Pvzgkc 220 Work Phone: Encounters Encounter Date Encounter Type Care Provider Facility Start: 02-10-2023 End: 02-10-2023 Emergency department patient visit OFE PINEDA Facility:[facility] Start: 08-08-2022 Office outpatient vi sit 15 minutes Ofe-Chi Elieser Work Phone: UG-Iiphmnruyv-Tqbzxw 220 Work Phone: Start: 08-08-2022 ambulatory PAC JEFRY WALLER Facility:[id number] Start: 05-30-2022 Office consultation new/estab patient 60 min Ofe-Chi Elieser Work Phone: OA-Mrjbkfqavj-Cgzopa 220 Work Phone: Start: 05-30-[address] [id number] Start: 08-16-2021 End: 08-16-2021 Patient encounter procedure Wagner Jacobson MD Work Phone: Endocrine Surgery Procedures Date Procedure Procedure Detail Performing Clinician Start: 08-03-2021 Antibody screen Plan of Treatment Date Care Activity Detail Author Start: 09-26-2027 Urine microalbumin profile DTAP,TDAP,TD (2 - Td or Tdap) [facility] Start: 08-21-2023 FUV, Provider: Jefry Waller, Status: Pen, Time: 9:00 AM FUV, Provider: Jefry Waller, Status: Pen, Time: 9:00 AM LZ-Buoctqhvei-Yivvfe 220 Work Phone: Start: 11-02-2021 Influenza vaccination [facility] Start: 03-04-2021 ADVANCE DIRECTIVE DISCUSSION ADVANCE DIRECTIVE DISCUSSION [facility] Start: 12-12-2018 Hepatitis B screening URINE ALBUMIN:CREATININE RATIO [facility] Start: 09-25-2018 3 comp foot exam completed DIABETIC FOOT EXAM [facility] Start: 09-23-2018 Hepatitis B surface antibody level LDL CHOLESTEROL [facility] Start: 08-01-2018 Hepatitis C antibody, confirmatory test DILATED RETINAL EXAM [facility] Start: 12-10-2017 Hemoglobin A1c/Hemoglobin.total in Blood HBA1C [facility] Start: 1941 COVID-19 VACCINE (#1) COVID-19 VACCINE (#1) [facility] Start: 1941 COVID-19 VACCINE (1) COVID-19 VACCINE (1) [facility] Start: 06-23-1937 COVID-19 VACCINE (#1) COVID-19 VACCINE (#1) [facility] CYTOLOGY NON-BULK PLANT AGENT CYTOLOGY NON-GY N Lab Routine Toxic multinodular goiter Ordered: 06/21/2021 [facility] Work Phone: Immunizations Immunization Date Immunization Notes Care Provider Fa tiara 09-08-2021 Comirnaty 30 MCG/0.3 ML Intramuscular Suspension Ofe-Chi Elieser Work Phone: RP-Jlbscvdrds-Ruxvl a 220 Work Phone: 12-26-2020 Pfizer-BioNTBusuu COVI D-19 Vacc 30 MCG/0.3ML Intramuscular Suspension Ofe-Chi Elieser Work Phone: TN-Jqzishozmn-Geaia a 220 Work Phone: 11-21-2020 influenza, injectabl e, quadrivalent, contains preservative Ofe-Chi Elieser Work Phone: WR-Ejcocoydja-Ozfhz a 220 Work Phone: 04-17-2020 Pfizer-BioNTech COVI D-19 Vacc 30 MCG/0.3ML Intramuscular Suspension Ofe-Chi Elieser Work Phone: LO-Eschbcgvvw-Ywxbt a 220 Work Phone: 03-27-2020 Pfizer-BioNTech COVI D-19 Vacc 30 MCG/0.3ML Intramuscular Suspension Ofe-Chi Elieser Work Phone: IY-Nyknpwucgu-Ohdvk a 220 Work Phone: 11-16-2019 influenza, injectabl e, quadrivalent, contains preservative Ofe-Chi Elieser Work Phone: GT-Ftoihehlnm-Qbytt a 220 Work Phone: 10-16-2018 influenza, injectabl e, quadrivalent, contains preservative Ofe-Chi Elieser Work Phone: DK-Oowlmupmsf-Sszbp a 220 Work Phone: 01-02-2018 influenza, high dose seasonal, preservative-free Ilda Lopez MD Work Phone: [facility] 10-10-2017 zoster vaccine recombinant Ilda Lpoez MD Work Phone: [facility] 10-09-2017 zoster vaccine recombinant Ofe-Chi Elieser Work Phone: WY-Emxnyvuact-Uwojc a 220 Work Phone: 09-25-2017 tetanus toxoid, redu joy diphtheria toxoid, and acellular pertussis vaccine, adsorbed Ilda Lopez MD Work Phone: [facility] 08-09-2017 zoster vaccine recombinant Ilda Lopez MD Work Phone: [facility] 12-17-2016 influenza, high dose seasonal, preservative-free Ilda Lopez MD Work Phone: [facility] 12-17-2016 pneumococcal polysaccharide vaccine, 23 valent lIda Lopez MD Work Phone: [facility] 12-03-2015 influenza, high dose seasonal, preservative-free Ilda Lopez MD Work Phone: [facility] 03-04-2011 pneumococcal conjuga te vaccine, 13 valent Ilda Lopez MD Work Phone: [facility] 03-04-2011 zoster vaccine, live Ilda Lopez MD Work Phone: [facility] Payers Date Payer Category Payer Private Health Insurance HUMANA HUMANA MEDICARE SUPPLEMENT [id number] 2015-Present [phone] [address] [address] [place] [address] Indemnity [id number] 2015 Private Health Insurance HUMANA HUMANA MEDICARE SUPPLEMENT [id number] 2015-Present [phone] [address] [address] [place] [address] Indemnity [id number] 2015 Private Health Insurance [id number] 2006 Medicare MEDICARE MEDICAR E A AND B [id number] 2006-Present [phone] [place] [address] Medicare [id number] 2006 Medicare MEDICARE MEDICAR E A AND B [id number] 2006-Present [phone] [place] [address] Medicare [id number] 2006 Medicare [id number] 1935 Unknown [id number] 1935 Unknown [id number] Medicare [id number] Unknown Social History Date Type Detail Facility [facility]10[facility] Start: 02-10-2013 Tobacco use and exposure Smoke less tobacco non-user [facility] Start: 05-31-2021 End: 08-01-2021 Alcohol intake Current drinker of alcohol (finding) [facility] Start: 05-31-2021 End: 08-01-2021 Alcohol intake [facility] Start: 02-10-2013 History SDOH Alcohol Comment Socially [facility] Start: 1935 Sex Assigned At Male C [facility] Start: 05-21-2021 End: 08-04-2021 Exposure to SARS-CoV-2 (event) Not sure [facility] Medical Equipment Procedure Code Equipment Code Equipment Origin al Text Equipment Identifier Dates Start: 03-12-2017 End: 08-01-2021 Clinical Notes 05-31-2021 to 05-30-2022 Wagner Jacobson MD - 08/16/2021 1:21 PM EDTPatient InstructionsTelephone Encounter - Maulik Randall RN - 08/02/2021 9:58 AM Karolina Soto PA-C - 08/01/2021 11:30 AM EDTPatient Instructions Note Date & Type Note Facility 05-30-2022 History of Present illness Narrative Tez Licea has a past medical history significant for thyroid disease HTNPAST SLEEP HISTORY:Diagnosed in remote past with SARAH in the and has been a faithful cpap user since that timeA&P from last visit, 05/30/2022:OBSTRUCTIVE SLEEP APNEA-record release signed for sleep study copy from [facility]; states most recent study was1 year ago-will send order to [facility] for new BiPAP device, settings /, which are his current settings-Diet, exercise, and weight loss were emphasized today in clinic, as were non-supine sleep, avoiding alcohol in the late evening, and driving or operating heavy machinery when sleepy.Update Today:#Sleep Apnea-diagnosed with sleep apnea in the remote past, initially started on CPAP and later transitioned to BiPAP; unclear reason for transition-here for compliance check after new device ordered from [facility]-original SARAH symptoms: snoring, witnessed apneas, brain fog, daytime sleepiness --> significantly improved with PAP therapy and wears his BiPAP nightly-happy with new device-switches between nasal pillows and full face mask to relieve pressure from mask on his face; happy with these styles and likes to change between them-no issues or concerns regarding sleep or cpap at this timeSLEEP AIDS: noneSLEEP SCHEDULE:In bed: 10 PMSubjective sleep latency: quicklyFinal awakening time: 6-7AMOverall estimate of total sleep time: 8 hoursNaps: 30 - 60 min nap around 1:30PMRefreshing?: yes IL-Verizbdpsy-Ghvoft 220 Work Phone: 08-16-2021 Note HNO ID: [id number] Author: Wagner Jacobson MD Service: ? Author Type: Physician Type: Progress Notes Filed: 08/16/2021 3:03 PM Note Text: POST-OP CLINIC VISIT August 16, 2021 1:21 PM Tez Hidalgonisa [id number] DOS: 08/03/21 SURGERY: Left thyroid lobectomy and isthmusectomy, reimplantation of left lower parathyroid gland into left sternocleidomastoid muscle, and intraoperative neck ultrasound. PATHOLOGY REPORT: 1. Left lower parathyroid, excision (A): - Parathyroid gland tissue. ? 2. 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 - No parathyroid gland tissue seen. - No evidence of malignancy. Gross Description A. PARATHYROID GLAND LEFT. Received fresh for intraoperative consultation labeled ?left lower parathyroid totally excised portion submitted 10 x 5 x 1 is a single ovoid mackay nodule of soft tissue (0.4 x 0.3 x 0.2 cm; 0.010 grams). The specimen is entirely submitted for frozen section evaluation as FSA1. MR 08/03/21 Gross examination performed at [facility], [address], [place] [address] CLIA# [id number] ? B. THYROID LOBE LEFT AND ISTHMUS. Specimen received: Formalin Specimen type: Lobectomy with isthmus Without attached skeletal muscle, lymph nodes and/or large vessels Oriented: No Weight: 136.6 grams Size: 10.0 x 6.0 x 5.1 cm Left lobe: 10.0 x 5.8 x 4.8 cm Isthmus: 1.5 x 0.5 x 2.3 cm Ink: Black - External surface of the right lobe Blue - External surface of the left lobe Stanley -resection margin of isthmus Sectioning: The left lobes are serially sectioned from superior to inferior. The isthmus is serially section from right to left Number of discrete nodules: 0 ? ? Multiple colloid cysts ranging in size from 1.5 to 5.8 cm. White fibrous areas are present. Calcifications are not present. Background thyroid parenchyma: Normal thyroid parenchyma is not grossly identified Attached skeletal muscle: Not identified Attached lymph nodes: Not identified Attached parathyroid: Not identified Gross photograph: No Cassette Summary: B1?B3 outreach representative sections of left lobe B4?B5 Isthmus totally submitted SUBJECTIVE: Doing well, not taking any pain meds No difficulty swallowing, no hoarseness No tingling or numbness OBJECTIVE: There were no vitals taken for this visit. Physical Exam: NAD No increased wob on RA Neck soft, incision site healing well, no evidence of hematoma ASSESSMENT/PLAN: 85 year old male s/p Left thyroid lobectomy and isthmusectomy, reimplantation of left lower parathyroid gland into left SCM muscle, doing well postop -Steri strip removed in clinic -Plan to follow up with local structural analyst for TSH levels -Return to clinic as needed Makayla Scanlon MD General Surgery Resident Saw and examined the patient. I agree with above. Wagner Jacobson MD [facility] 08-16-2021 History of Present illness Narrative POST-OP CLINIC VISIT August 16, 2021 1:21 PM Tez Hidalgonisa [id number] DOS: 08/03/21 SURGERY: Left thyroid lobectomy and isthmusectomy, reimplantation of left lower parathyroid gland into left sternocleidomastoid muscle, and intraoperative neck ultrasound. PATHOLOGY REPORT: 1. Left lower parathyroid, excision (A): - Parathyroid gland tissue. 2. 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 - No parathyroid gland tissue seen. - No evidence of malignancy. Gross Description A. PARATHYROID GLAND LEFT. Received fresh for intraoperative consultation labeled left lower parathyroid totally excised portion submitted 10 x 5 x 1 is a single ovoid mackay nodule of soft tissue (0.4 x 0.3 x 0.2 cm; 0.010 grams). The specimen is entirely submitted for frozen section evaluation as FSA1. MR 08/03/21 Gross examination performed at [facility], [address], [place] [id number] CLIA# [id number] B. THYROID LOBE LEFT AND ISTHMUS. Specimen received: Formalin Specimen type: Lobectomy with isthmus Without attached skeletal muscle, lymph nodes and/or large vessels Oriented: No Weight: 136.6 grams Size: 10.0 x 6.0 x 5.1 cm Left lobe: 10.0 x 5.8 x 4.8 cm Isthmus: 1.5 x 0.5 x 2.3 cm Ink: Black - External surface of the right lobe Blue - External surface of the left lobe Stanley -resection margin of isthmus Sectioning: The left lobes are serially sectioned from superior to inferior. The isthmus is serially section from right to left Number of discrete nodules: 0 Multiple colloid cysts ranging in size from 1.5 to 5.8 cm. White fibrous areas are present. Calcifications are not present. Background thyroid parenchyma: Normal thyroid parenchyma is not grossly identified Attached skeletal muscle: Not identified Attached lymph nodes: Not identified Attached parathyroid: Not identified Gross photograph: No Cassette Summary: B1 B3 outreach representative sections of left lobe B4 B5 Isthmus totally submitted SUBJECTIVE: Doing well, not taking any pain meds No difficulty swallowing, no hoarseness No tingling or numbness OBJECTIVE: There were no vitals taken for this visit. Physical Exam: NAD No increased wob on RA Neck soft, incision site healing well, no evidence of hematoma ASSESSMENT/PLAN: 85 year old male s/p Left thyroid lobectomy and isthmusectomy, reimplantation of left lower parathyroid gland into left SCM muscle, doing well postop -Steri strip removed in clinic -Plan to follow up with local structural analyst for TSH levels -Return to clinic as needed Makayla Scanlon MD General Surgery Resident Saw and examined the patient. I agree with above. Wagner Jacobson MD documented in this encounter [facility] 08-16-2021 Instructions Dennise Paredes Ma - 08/16/2021 12:55 PM EDT Thank you for choosing the [facility] Department of Endocrinology, Diabetes and Metabolism. Did you know that you need to call 48 hours in advance of your scheduled visit, if you are unable to make your appointment? The [facility]inology [facility] Met[facility] [place] thanks you for your commitment, because patients not showing to their appointment results in a lost opportunity for patients to receive [facility] care at the [facility]. To Cancel an appointment, please choose one of the following: - Call the Appointment Call Center at [phone] - From [employer], Go to Appointments Cancel Appts If cancelling, consider your need to reschedule to prevent further delays in your care. To Schedule an appointment, please choose one of the following: - Call the Appointment Call Center at [phone] - From [employer], Go to Appointments Request an Appt documented in this encounter [facility] 08-04-2021 Note HNO ID: [id number] Author: David Beck MD Service: General Surgery Author Type: Resident Type: Progress Notes Filed: 08/04/2021 6:54 AM Note Text: ENDOCRINE SURGERY POST OP NOTE Name: Tez Licea Date: August 04, 2021 POD# 1 S/P: Large L thyroid Nodule S: Doing well. Tolerating diet. Pain well controlled. No neck swelling. Very well appearing. O: BP 137/66 Pulse 84 Temp 36.3 ?C (97.3 ?F) (Oral) Resp 16 Ht 180.3 cm (5' 11 ) Wt 91.2 kg (201 lb) SpO2 97% BMI 28.03 kg/m? PHYSICAL EXAM: General Appearance: no acute distress Neck: soft, incision clean/dry/intact, no evidence of deep neck hematoma, superficial ecchymosis Abdomen: Soft Nontender Nondistended ASSESSMENT and PLAN of Care: Discharge on Ca/VitD TID SIGNATURE: David Beck MD [facility] 08-03-2021 Note HNO ID: [id number] Author: Capri Gaitan APRN.POSTDOCTORAL SCHOLAR Service: ? Author Type: Nurse Offset Machine Operator Type: Anesthesia Procedure Notes Filed: 08/03/2021 2:24 PM Note Text: ANESTHESIOLOGY PROCEDURE NOTE PIV General Information Staffing POSTDOCTORAL SCHOLAR: Capri Gaitan APRN.POSTDOCTORAL SCHOLAR Preparation Site Prep: alcohol Procedure Details Indication: need for IV access Needle Size/Type: 16 gauge angiocath Orientation: Left Location: Hand Imaging Guidance Used: No SIGNATURE: Capri Melo APRN.CRNA PATIENT NAME: Tez Licea DATE: August 03, 2021 TIME: 2:24 PM CSN: [id number] [facility] 08-03-2021 Note HNO ID: [id number] Author: Capri Gaitan APRN.POSTDOCTORAL SCHOLAR Service: ? Author Type: Nurse Offset Machine Operator Type: Anesthesia Procedure Notes Filed: 08/03/2021 1:51 PM Note Text: ANESTHESIOLOGY PROCEDURE NOTE PIV General Information Staffing POSTDOCTORAL SCHOLAR: Beatrice Leon APRN.POSTDOCTORAL SCHOLAR Procedure Details Indication: need for IV access Needle Size/Type: 18 gauge angiocath Orientation: Right Location: Hand Imaging Guidance Used: No SIGNATURE: Capri Melo APRN.POSTDOCTORAL SCHOLAR PATIENT NAME: Tez Licea DATE: August 03, 2021 TIME: 1:51 PM CSN: [id number] [facility] 08-03-2021 Note HNO ID: [id number] Author: Capri Gaitan APRN.POSTDOCTORAL SCHOLAR Service: ? Author Type: Nurse Offset Machine Operator Type: Anesthesia Procedure Notes Filed: 08/03/2021 1:50 PM Note Text: ANESTHESIOLOGY PROCEDURE NOTE PIV General Information Staffing POSTDOCTORAL SCHOLAR: Beatrice Leon APRN.POSTDOCTORAL SCHOLAR Preparation Site Prep: alcohol Procedure Details Needle Size/Type: 18 gauge angiocath Orientation: Left Location: Hand Imaging Guidance Used: No SIGNATURE: Capri Melo APRN.CRNA PATIENT NAME: Tez Licea DATE: August 03, 2021 TIME: 1:49 PM CSN: [id number] [facility] 08-03-2021 Note HNO ID: [id number] Author: Mayelin Woodson MD Service: Anesthesiology Author Type: Anesthesiologist Type: Anesthesia Procedure Notes Filed: 08/03/2021 12:47 PM Note Text: ANESTHESIOLOGY PROCEDURE NOTE Airway General Information Procedure Start Time/Medication Administration: 08/03/2021 12:16 PM Patient location during procedure: OR Timeout Performed Pre-procedure: timeout performed Consent Obtained: Yes Patient identity confirmed: arm band Staffing POSTDOCTORAL SCHOLAR: Beatrice Leon APRN.POSTDOCTORAL SCHOLAR Performed by: KRISTI Indications and Patient Condition Preoxygenated: yes Difficult Mask: No Indications for airway management: anesthesia anesthesia circuit Method: sleep Final Airway Details Final airway type: endotracheal airway Final Endotracheal Airway: ETT Cuffed: yes Successful intubation technique: video laryngoscopy Devices used: Jordan Blade size: #4 ETT size (mm): 7.0 Measured from: teeth Measurement (cm): 22 Placement verified by: capnometry Cormack-Lehane Classification: grade I - full view of glottis Number of attempts at approach: 1 Airway not difficult SIGNATURE: Mayelin Woodson MD PATIENT NAME: Tez Licea DATE: August 03, 2021 TIME: 12:45 PM CSN: [id number] [facility] 08-02-2021 Miscellaneous Notes Message left at for Keshia at Dr Pablo's office requesting most recent office note and cardiac testing. My fax and phone number provided. Maulik Randall RN August 02, 2021 9:59 AM documented in this encounter [facility] 08-01-2021 History and physical note HISTORY AND PHYSICAL EXAMINATION SERVICE DATE: 08/01/21 SERVICE TIME: 11:40 AM PRIMARY CARE PHYSICIAN: Ofe Pineda MD REASON FOR VISIT: Tez Licea is a 85 year old male who is scheduled for LOBECTOMY THYROID TOTAL, UNILATERAL; WITH OR WITHOUT ISTHMUSECTOMY (L) at the request of Dr. Wagner Jacobson for consultation. My final recommendation will be communicated back to the requesting physician by way of shared medical record or letter. The patient has the following: ACTIVE PROBLEM LIST Subclinical Hyperthyroidism Hypopituitarism (Hcc) Gout Hypertension Sleep Apnea Multiple Thyroid Nodules Type 2 Diabetes Mellitus (Hcc) Polycythemia Strain of Shoulder, Left, Initial Encounter Chronic Left Shoulder Pain Shoulder Weakness Shoulder Stiffness, Left Abnormal Results of Thyroid Function Studies Osteopenia of Forearm Hypogonadism Male Lbbb (Left Bundle Branch Block) Subjective CHIEF COMPLAINT: Pre-op visit, goiter HPI: Tez Licea is a 85 year old male presenting for pre-anesthesia consultation. Pt has history of substernal multinodular goiter. He also has subclinical hyperthyroidism, previously treated with methimazole. Above procedure recommended to manage symptoms. Procedure scheduled on 08/03/21 at . PAST MEDICAL HISTORY Diagnosis Date Gout HTN (hypertension) Low testosterone PAST SURGICAL HISTORY Procedure Laterality Date APPENDIX PELVIC LTD NON OB EXCISION TONSIL LESIONS BILATERAL PAST SURGICAL HISTORY OF palstic surgery of the Lt: PAST SURGICAL HISTORY OF Left ADRIANA FAMILY HISTORY Problem Relation Age of Onset Hypertension Mother Diabetes Maternal Grandmother Anesthesia Problems No Family History SOCIAL HISTORY: Social History Tobacco Use Smoking status: Never Smoker Smokeless tobacco: Never Used Substance Use Topics Alcohol use: Yes Alcohol/week: 11.0 standard drinks Types: 7 Cans of Beer (12oz), 4 Glasses of Wine (5oz) per week Drug use: No MEDICATIONS: Prior to Admission medications as of 08/01/21 1152 Medication Sig Last Dose Taking TESTOSTERONE, BULK, MISC every 2 weeks. Taking Yes ketoconazole (NIZORAL) 2 % cream APPLY A THIN LAYER TO AFFECTED AREAS ON FACE TWICE DAILY FOR FLARES, THEN ONCE DAILY FOR MAINTENANCE Yes losartan (COZAAR) 50 mg tablet Take 50 mg by mouth once daily. Yes probenecid 500 mg tablet Take 500 mg by mouth twice daily. Yes Fluorouracil 5 % cream APPLY THIN LAYER OF CREAM TO FOREHEAD AND SCALP TWICE DAILY FOR 2 WEEKS. WASH HANDS WELL AFTER EACH USE losartan-hydrochlorothiazide (HYZAAR) 50-12.5 mg per tablet Take by mouth once daily. No medication comments found. CURRENT ALLERGIES: ALLERGIES No Known Allergies COVID VACCINATION STATUS: Fully vaccinated REVIEW OF SYSTEMS: General: No weight loss, malaise or fevers. 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 Negative for TIA's Seizures Stroke-residual deficit Stroke-No residual deficit Respiratory: +SARAH +Seasonal allergies Negative for Asthma, Bronchitis, COPD, Current cough, Tobacco Use, URI < 2 weeks Cardiovascular: +HTN +LBBB - follows with electronics hardware design engineer annually, Dr. Pablo, last visit was 05/2021. Negative for Recent FL, Arrhythmia, CAD, CHF, Valvular Heart Disease, DVT/PE GI: No history of GI symptoms or problems. No history of esophageal varices, recent ascites, or ETOH greater than 2 drinks per day. : No history of dysuria, frequency or incontinence,, stones or chronic kidney disease Endocrine: See HPI +Prediabetes Denies PO steroids in the past 30 days. 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 Oncology: No history of CA metastasis, chemo within 30 days, or radiotherapy within 90 days. Has not lost 10% of body wt in 6 months. No history of oncological symptoms or problems. Psych: No history of psychiatric symptoms or problems. Musculoskeletal: +Gout Skin: Negative for lesions, rash and itching. Objective PHYSICAL EXAM: VITALS: BP 146/66 Pulse 78 Temp (Src) 97.1 (Temporal) Ht 5' 11 (1.80m) Wt 201 lb 8 oz (91.4kg) SpO2 98% BMI 28.12 kg/(m^2). General: Alert and oriented, No acute distress, Healthy appearance Skin: Normal color, no rash, no lesions. HEENT: EOM, pupils equal, round and reactive., No carotid bruits Cardiovascular: Normal S1 & S2, no rubs, murmurs or gallops. Pulse regular. Lungs: Normal breath sounds, no wheezes or crackles. Extremities: No deformity, no edema or tenderness, no joint swelling or clubbing. Neurological: Normal cognition and motor skills. Pulses: Radial pulses; left 2+ / right 2+. Diagnostic tests reviewed for today's visit: Lab Value Units Date High Low HB No results within date range. HCT No results within date range. WBC No results within date range. PLT No results within date range. NA No results within date range. K No results within date range. GLUC No results within date range. BUN No results within date range. CREAT No results within date range. PTSEC No results within date range. INR No results within date range. APTT No results within date range. ALT No results within date range. AST No results within date range. TBILI No results within date range. TSH No results within date range. Lab Value Units Date High Low HCGQT No results within date range. UHCG No results within date range. HCG, BODY* No results within date range. Lab Value Units Date High Low ABORHD No results within date range. ABSCREEN No results within date range. Hemoglobin A1C (%) Date Value 06/10/2017 5.5 12/10/2016 5.9 04/30/2016 6.4 No results found for this or any previous visit (from the past 8760 hour(s)). No results found for this or any previous visit (from the past 84853 hour(s)). PENDING Assessment/Plan Hypertension Assessment: Stable, on RX. BP today 146/66. 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 Sleep apnea Assessment: Compliant on BiPAP. Type 2 diabetes mellitus (HCC) Assessment: Prediabetes per pt, no medications. 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 LBBB (left bundle branch block) Assessment: ECG pending, follows with electronics hardware design engineer annually, Dr. Pablo, last visit was 05/2021. Records requested for chart completeness. METS: Climb a flight of stairs or walk up a hill (5.50 METs) Patient denies any chest pain or undue shortness of breath with the above physical activity. ASA Class: 3 ANESTHESIA FINDINGS: Intubation History: No history of difficult intubation Significant Anesthesia Considerations: None Pt reports that he received scopolamine following L ADRIANA and he felt like he was out of it for additional day possibly 2/2 scopolamine, he denies h/o PONV. Airway Exam: General: Normal appearance Mallampati Score is CLASS I ULBT: Unable to perform Neck: Limited movement extension Mouth: Normal tongue size and Mouth opening greater than 2 finger breaths Dentition: Caps/crowns Airway History: No abnormal airway history +SARAH - uses BIPAP. Sleep Apnea Probability Snores loudly: No Tired, fatigued or sleepy in daytime: Yes Stops breathing or choking/gasping during sleep: No High blood pressure: Yes Sleep Apnea Probability Score 05/28/2021 Sleep Apnea Screen V2 75.29 (Recommend sleep study) PLAN This patient is optimally prepared for surgery pending LABS and EKG. Records requested from electronics hardware design engineer for chart completeness. CONSULTS: Patient does not require consults for optimization at this time. The Following Tests/Procedures Have Been Initiated: Orders placed by surgeon/surgical service in [facility]. Orders Placed This Encounter ECG COMPLETE Standing Status: Future Standing Expiration Date: 07/28/2022 Planned Anesthetic: Per anesthesia choice Instructions Given to Patient: Instructions located in the after visit summary. Patient given verbal and written preop instructions and voices comprehension and compliance. SIGNATURE: Teresa Soto PA-C PATIENT NAME: Tez Licea DATE: July 28, 2021 TIME: 6:25 PM documented in this encounter [facility] 08-01-2021 Instructions Teresa Soto PA-C - 08/01/2021 11:30 AM EDT PATIENT PREOPERATIVE INSTRUCTIONS Wagner Jacobson MD has scheduled you for your procedure at this surgery center: [facility]: [phone] -- [address] [place] [address]. Please read below carefully for your personalized instructions. Dietary Restrictions: - No solid food after midnight. - You may have 12 ounces of clear liquids (water, clear juices such as apple juice or gatorade, carbonated beverages, clear tea, black coffee, jello) until 2 hours before scheduled arrival at facility. Medications: Unless instructed differently below, stay on all of your medications until your surgery. Approved medications to take the morning of surgery with a sip of water: None. If you start any new medications after today's visit, please contact the surgeon's office. Blood Thinning Medications: - Stop NSAIDS (Ibuprofen, Advil, Aleve, Motrin, Celebrex, Mobic, etc.) 7 days before surgery, as directed by your surgeon. - Stop Aspirin 7 days before surgery, as directed by your surgeon. - Stop Vitamin E, ALL multi-vitamins, herbals and dietary supplements 7 days before surgery. - You may take Tylenol (Acetaminophen) or any of your pain medications that do not contain aspirin or NSAIDS as needed. Important Reminders: - If you use CPAP/BIPAP, bring the machine with you to the surgery center. - Candy, mints, and tobacco products are NOT permitted the morning of surgery. - Hearing aids, dentures and glasses may be worn the morning of surgery. - NO jewelry, body piercings, makeup, hairpins or contacts are to be worn the day of surgery. If you develop symptoms such as a fever, cold, or flu, or have other changes to your health within TWO DAYS of scheduled surgery or the morning of surgery, please contact the surgery center above. Personal Belongings: -Please have photo ID and insurance cards. -If you do not have a copy of advance directives on file with us, please bring a copy with you on the day of surgery. - Leave ALL valuables and money at home or with family members. For Outpatient Procedures: - YOU MUST HAVE A RESPONSIBLE WOVEN BLIND LOOM TENDER TAKE YOU HOME. A MENTAL HYGIENE CONSULTANT OR RAIMANN MACHINE OPERATOR CANNOT BE MADE A RESPONSIBLE WOVEN BLIND LOOM TENDER. - We recommend that a responsible person stays with you overnight to take care of you. - You cannot stay in a hotel alone after outpatient surgery. You will not be permitted to have your surgery, if you do not have someone to take care of you. Arrival Time for Surgery: - The Surgery Center or hospital where you are having surgery will call the afternoon before surgery (or Saturday for Saturday surgery) with a scheduled arrival time. - If you have not heard by 4 pm, please contact the surgery center above. Please be aware that emergency situations arise, which may delay or change your surgical time. If this happens, we will notify you as soon as possible and regret any inconvenience. If you already have an Advance Directive, please fax a copy to [phone] or email to for it to be added to your chart. If you do not have an Advance Directive, you can find the appropriate form and more information at [email or web address]. We recommend that you complete the Advance Directive form found on the website and bring it with you the day of your surgery. It can be witnessed and scanned into your chart that day. documented in this encounter [facility] 06-21-2021 Note HNO ID: [id number] Author: Wagner Jacobson MD Service: ? Author Type: Physician Type: Progress Notes Filed: 06/21/2021 11:46 AM Note Text: Endocrinology Metabolism [place] [facility] Wagner Jacobson M.D. Section of Endocrine Surgery and Advanced Laparoscopic Surgery [address] [facility] [place] [address] ENDOCRINE SURGERY NEW CONSULTATION NAME: Tez Licea [facility] NO: [id number] : 1935 Surgeon: Dr. Wagner Jacobson REFERRING PROVIDER: Ilda Lopez [address] [id number] The patient was referred by the above provider and my findings and recommendations will be communicated by way of the shared medical record. HPI: The patient was evaluated today for a consultation regarding Substernal multinodular goiter. He also has subclinical hyperthyroidism treated with Methimazole. History of head and neck radiation: No Family history of thyroid cancer: No History of previous thyroid biopsy or any cervical operation: No PMH: PAST MEDICAL HISTORY Diagnosis Date - Gout - HTN (hypertension) - Low testosterone left bundle branch block PSH: PAST SURGICAL HISTORY Procedure Laterality Date - APPENDIX PELVIC LTD NON OB - EXCISION TONSIL LESIONS BILATERAL - PAST SURGICAL HISTORY OF palstic surgery of the Lt: Medications: Current Outpatient Medications on File Prior to Visit Medication Sig - ketoconazole (NIZORAL) 2 % cream APPLY A THIN LAYER TO AFFECTED AREAS ON FACE TWICE DAILY FOR FLARES, THEN ONCE DAILY FOR MAINTENANCE - Fluorouracil 5 % cream APPLY THIN LAYER OF CREAM TO FOREHEAD AND SCALP TWICE DAILY FOR 2 WEEKS. WASH HANDS WELL AFTER EACH USE - losartan (COZAAR) 50 mg tablet Take 50 mg by mouth once daily. - probenecid 500 mg tablet Take 500 mg by mouth twice daily. - losartan-hydrochlorothiazide (HYZAAR) 50-12.5 mg per tablet Take by mouth once daily. - melatonin 10 mg tab Melatonin Melatonin Active 10 MG BEDTIME May 11, 2019 9:04am 05-11-[address] [facility] ([id number]) - Saw Barton 160 mg capsule Saw palmetto extract Saw Barton Active 160 MG TWICE A DAY May 11, 2019 9:04am give with meal/snack 05-11-[address] [facility] ([id number]) - cyanocobalamin 1,000 mcg/mL inject 1ml (1000 mcg) INTRAMUSCULARLY EVERY month DIRECTED - cholecalciferol (VITAMIN D3) 1,000 unit tab tablet Take 2 tablets by mouth once daily. - blood sugar diagnostic (ACCU-CHEK GUIDE) test strip Use as instructed. To check blood sugars 2 times daily. - Blood Glucose Control High and Low (ACCU-CHEK GUIDE L1-L2 CTRL AYANA) soln Use as directed - Lancets (ACCU-CHEK MULTICLIX LANCET) lancets Use as instructed. To check blood sugars twice daily. - Blood-Glucose Meter (ACCU-CHEK GUIDE GLUCOSE METER) [facility] To check blood sugars 2 times daily No current facility-administered medications on file prior to visit. All: ALLERGIES No Known Allergies SH: Social History Tobacco Use - Smoking status: Never Smoker - Smokeless tobacco: Never Used Substance Use Topics - Alcohol use: Yes Alcohol/week: 2.5 standard drinks Types: 1 Cans of Beer (12oz) per week Comment: Socially - Drug use: No FH: Pertinent history above; otherwise, non-contributory REVIEW OF SYSTEMS: GENERAL: Well-appearing, no malaise or fevers Dyspnea:No. Dysphagia:No. Pressure symptoms:No. PHYSICAL EXAM: On physical exam, Tez Licea is well appearing, alert, and oriented and appears euthyroid. On inspection, the skin over the anterior neck is smooth, No mass is visualized. Palpation revealed no thyroid enlargement. No lymphadenopathy was palpated on either side of the neck. ULTRASOUND EXAMINATION: Ultrasound examination was performed in the office today. This demonstrated a a nodule involving the right thyroid lobe a nodule involving the left thyroid lobe. The largest nodule was in the left lobe was large and substernal. There was a subcm cyst involving the right thyroid lobe. No worrisome lymphadenopathy was appreciated in either bilateral central neck or lateral jugular chain compartments. A fine needle aspiration biopsy performed from dominant left thyroid nodule. UNIVERSAL PROTOCOL / SAFETY CHECKLIST Procedure to be Performed: Left thyroid FNA Sign In: A Moment of CARE was completed. Personnel directly involved with the procedure wore the appropriate PPE (Personal Protective Equipment). Patient/Surrogate Stated/Verified: PATIENT VERIFIED(optional for EMERGENT procedures): Patient name, Date of , Relevant allergies and The intended procedure Time Out Communication: Intended patient and procedure match the source documents. Consent documented and matches the intended procedure. Sign Out: SIGN OUT (optional for EMERGENT procedures): All specimen containers correctly labeled. Wagner Jacobson MD LABS: TSH Date Value Ref Range Status 09/14/2020 0.06 (A) (more content not included)... [facility] 06-21-2021 History of Present illness Narrative Endocrinology Metabolism [place] [facility] Wagner Jacobson M.D. Section of Endocrine Surgery and Advanced Laparoscopic Surgery [address] [place] [address], [address] [place] [id number] ENDOCRINE SURGERY NEW CONSULTATION NAME: Tez [facility] NO: [id number] : 1935 Surgeon: Dr. Wagner Jacobson REFERRING PROVIDER: Ilda Lopez [address] [address] The patient was referred by the above provider and my findings and recommendations will be communicated by way of the shared medical record. HPI: The patient was evaluated today for a consultation regarding Substernal multinodular goiter. He also has subclinical hyperthyroidism treated with Methimazole. History of head and neck radiation: No Family history of thyroid cancer: No History of previous thyroid biopsy or any cervical operation: No PMH: PAST MEDICAL HISTORY Diagnosis Date Gout HTN (hypertension) Low testosterone left bundle branch block PSH: PAST SURGICAL HISTORY Procedure Laterality Date APPENDIX PELVIC LTD NON OB EXCISION TONSIL LESIONS BILATERAL PAST SURGICAL HISTORY OF palstic surgery of the Lt: Medications: Current Outpatient Medications on File Prior to Visit Medication Sig ketoconazole (NIZORAL) 2 % cream APPLY A THIN LAYER TO AFFECTED AREAS ON FACE TWICE DAILY FOR FLARES, THEN ONCE DAILY FOR MAINTENANCE Fluorouracil 5 % cream APPLY THIN LAYER OF CREAM TO FOREHEAD AND SCALP TWICE DAILY FOR 2 WEEKS. WASH HANDS WELL AFTER EACH USE losartan (COZAAR) 50 mg tablet Take 50 mg by mouth once daily. probenecid 500 mg tablet Take 500 mg by mouth twice daily. losartan-hydrochlorothiazide (HYZAAR) 50-12.5 mg per tablet Take by mouth once daily. melatonin 10 mg tab Melatonin Melatonin Active 10 MG BEDTIME May 11, 2019 9:04am 05-11-[address] [facility] ([id number]) Saw Barton 160 mg capsule Saw palmetto extract Saw Barton Active 160 MG TWICE A DAY May 11, 2019 9:04am give with meal/snack 05-11-[address] [facility] ([id number]) cyanocobalamin 1,000 mcg/mL inject 1ml (1000 mcg) INTRAMUSCULARLY EVERY month DIRECTED cholecalciferol (VITAMIN D3) 1,000 unit tab tablet Take 2 tablets by mouth once daily. blood sugar diagnostic (ACCU-CHEK GUIDE) test strip Use as instructed. To check blood sugars 2 times daily. Blood Glucose Control High and Low (ACCU-CHEK GUIDE L1-L2 CTRL AYANA) soln Use as directed Lancets (ACCU-CHEK MULTICLIX LANCET) lancets Use as instructed. To check blood sugars twice daily. Blood-Glucose Meter (ACCU-CHEK GUIDE GLUCOSE METER) [facility] To check blood sugars 2 times daily No current facility-administered medications on file prior to visit. All: ALLERGIES No Known Allergies SH: Social History Tobacco Use Smoking status: Never Smoker Smokeless tobacco: Never Used Substance Use Topics Alcohol use: Yes Alcohol/week: 2.5 standard drinks Types: 1 Cans of Beer (12oz) per week Comment: Socially Drug use: No FH: Pertinent history above; otherwise, non-contributory REVIEW OF SYSTEMS: GENERAL: Well-appearing, no malaise or fevers Dyspnea:No. Dysphagia:No. Pressure symptoms:No. PHYSICAL EXAM: On physical exam, Tez Licea is well appearing, alert, and oriented and appears euthyroid. On inspection, the skin over the anterior neck is smooth, No mass is visualized. Palpation revealed no thyroid enlargement. No lymphadenopathy was palpated on either side of the neck. ULTRASOUND EXAMINATION: Ultrasound examination was performed in the office today. This demonstrated a a nodule involving the right thyroid lobe a nodule involving the left thyroid lobe. The largest nodule was in the left lobe was large and substernal. There was a subcm cyst involving the right thyroid lobe. No worrisome lymphadenopathy was appreciated in either bilateral central neck or lateral jugular chain compartments. A fine needle aspiration biopsy performed from dominant left thyroid nodule. UNIVERSAL PROTOCOL / SAFETY CHECKLIST Procedure to be Performed: Left thyroid FNA Sign In: A Moment of CARE was completed. Personnel directly involved with the procedure wore the appropriate PPE (Personal Protective Equipment). Patient/Surrogate Stated/Verified: PATIENT VERIFIED(optional for EMERGENT procedures): Patient name, Date of , Relevant allergies and The intended procedure Time Out Communication: Intended patient and procedure match the source documents. Consent documented and matches the intended procedure. Sign Out: SIGN OUT (optional for EMERGENT procedures): All specimen containers correctly labeled. Wagner Jacobson MD LABS: TSH Date Value Ref Range Status 09/14/2020 0.06 (A) 0.358 - 3.74 Final Calcium Date Value Ref Range Status 09/14/2020 8.9 8.5 - 10.1 Final - THYROID DATA FLOWSHEET Latest Ref Rng & Units 04/30/2016 09/10/2016 12/10/2016 06/10/2017 09/20/2017 12/12/2017 02/20/2019 08/17/2019 09/14/2020 TSH 0.358 - 3.74 0.232 (L) 0.088 (L) 0.417 0.075 (L) 0.021 (L) 0.126 (L) 0.241 (L) 0.181 (L) 0.06 (A) FREE T4 0.9 - 1.7 ng/dL 0.8 (L) 1.3 0.8 (L) 1.0 1.1 1.0 0.9 0.9 T4 5.5 - 10.2 ug/dL 4.8 (L) 6.7 4.6 (L) 5.6 5.6 5.6 FREE T3 2.3 - 4.1 pg/mL 2.9 2.8 2.6 2.7 3.0 2.6 2.9 2.8 FTI 5.3 - 10.8 ug/dL 4.6 (L) 6.6 4.2 (L) 5.0 (L) 5.2 (L) 4.9 (L) TSI <150 % Normal 30 TBI <1.0 U/L <1.0 MICROSOMAL ANTIBODY <5.6 IU/mL Thyroid scan 2016: NM thyroid uptake and scan 09/12/15 ( similar one in 05/2016) 6 hrs uptake 8.6, 24 hrs 18.1, considerable enlargement of left lobe. Mildly heterogenous update in the left lobe, no dominant cold or hot lesions . 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 Thyroid US 09/2016 at no sig changes with significant larger left lobe. ASSESSMENT: In summary, Tez Licea has Substernal multinodular goiter . PLAN: Discussed options of monitoring versus left thyroidectomy. The patients opted for left thyroid lobectomy. I appreciate being involved in the care of your patient, and please feel free to contact me should you have additional questions. I spent a total of 30 minutes on the date of the service which included preparing to see the patient, [id number] patient care, completing clinical documentation, obtaining and/or reviewing separately obtained history, performing a medically appropriate examination, counseling and educating the patient/family/caregiver, ordering medications, tests, or procedures, communicating with other HCPs (not separately reported), independently interpreting results (not separately reported), communicating results to the patient/family/caregiver and care coordination (not separately reported). Sincerely, Wagner Jacobson MD 06/21/2021 CC: Ilda Lopez [address] [facility] [id number] Fax: documented in this encounter [facility] 06-21-2021 Instructions Johnny Beasley MA - 06/21/2021 10:27 AM EDT Thank you for choosing the [facility] Department of Endocrinology, Diabetes and Metabolism. Did you know that you need to call 48 hours in advance of your scheduled visit, if you are unable to make your appointment? The Endocrinology and Metabolism [place] thanks you for your commitment, because patients not showing to their appointment results in a lost opportunity for patients to receive [facility] health care at the [facility]. To Cancel an appointment, please choose one of the following: - Call the Appointment Call Center at [phone] - From [employer], Go to Appointments Cancel Appts If cancelling, consider your need to reschedule to prevent further delays in your care. To Schedule an appointment, please choose one of the following: - Call the Appointment Call Center at [phone] - From [employer], Go to Appointments Request an Appt documented in this encounter [facility] 06-15-2021 Miscellaneous Notes 06/15 - completed. Dr Mendel Lopez notes FNA in 2016 but pt says this is incorrect info and that he has never had a FNA. Images imported and labs in scanned documents ENDOCRINE SURGERY PATIENT WORKSHEET Initial Call Date: June 15, 2021 Reason for Consult/ Referral: Thyroid Nodule PATIENT DEMOGRAPHICS Name: Tez Licea [facility]#: [id number] : 1935 AGE: [age] year old Contact Numbers: Home: (home) Work: There is no work phone number on file. PATIENT PHYSICIAN INFORMATION Referring Doctor: Ilda Lopez MD Address: Phone: Associate Chief Nurse: Ilda Lopez MD Address: Phone: PCP: Ofe Pineda MD [address] [address] PAST TREATMENT Office notes: SEE [facility] Medications: NONE THAT APPLY Pre-Visit Testing STUDY/TEST DATE ORDERED/REQUESTED DATE RECEIVED/COMPLETED ENTIRE PANEL TSH FREE T4 FREE T3 Imaging Reports: SEE [facility] CD of Images: SEE EPIC FNA: yes: 2015 FNA Slides: Slides requested from outside facility (Date received: ) Has the patient ever had thyroid or parathyroid surgery before: No Operative Reports: NONE AVAILABLE Pathology Reports: Requested from referring physician (Date received: ) Patient called to schedule consult with Dr. Jacobson Scheduled for 06/21/21 Toxic Thyroid Nodule Imaging and labs requested from [facility] 06/01/21. Images pushed to PACS per medical records and labs faxed. documented in this encounter [facility] 05-31-2021 Note HNO ID: [id number] Author: Ilda Lopez MD Service: ? Author Type: Physician Type: Progress Notes Filed: 05/31/2021 4:13 PM Note Text: Endocrinology Thyroid Follow Up Tez Licea is here for follow up regarding: Goiter and subclinical hyperthyroidism Last office visit: 2019 PCP is Ofe Pineda MD History of Present Illness Tez Licea is a 85 year old male with PMH of Gout, HTN, secondary hypogonadism, Subclinical hyperthyroidism on methimazole and left sided goiter who presents today for evaluation of thyroid disease . He is following with Dr. Dante Colvin in [place] Restarted on methaimzole 6 months ago Was on 5 mg then eventually decreased to 2.5 mg MWF Last TSH was 0.01, FT4 and FT3 WNL in 05/2021 Hx of low TSH and normal FT4 and FT3 since several years ago TSH range between 0.06 - 0.46 Notes heat intolerance and irregular rhythm Did well with hip replacement surgery 1-2 years ago He has been treated with both methimazole and levothyroxine in the past Became more hyperthyroid with symptoms when treated with levothyroxine Dx with thyroid nodules in 2013 after investigation of thyromegaly Uptake scan in 09/2015 and 05/2016 showed milk uptake in left lobe No dominant cold or hot lesion notes FNA of left nodule in 10/2015 was benign Monitored with thyroid US since Recent CT scan showed substernal extension per patient Saw Surgeon Dr. Mondragon who referred him to [facility] for thyroidectomy in conjunction with thoracic surgery Here with his and son to see if surgery is needed From Dr. Casillas note in 02/2020 Thyroid US [facility] 09/12/15 left lobe enlarged with multiple cystic areas up to 2 cm in size. NM thyroid uptake and scan 09/12/15 ( similar one in 05/2016) 6 hrs uptake 8.6, 24 hrs 18.1, considerable enlargement of left lobe. Mildly heterogenous update in the left lobe, no dominant cold or hot lesions . 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 Thyroid US 09/2016 at no sig changes with significant larger left lobe. ? 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 Normal ACTH stim test in 2013. Recent ACTH , cortisol and DHEAS normal. Has secondary hypogonadism and has been on TRT for over 10 years Prolactin normal TRT complicated by polycythemia for which he donates blood periodically He also has a hx of BPH and sleep apnea Past History, Medications, Allergies PAST MEDICAL HISTORY Diagnosis Date - Gout - HTN (hypertension) - Low testosterone PAST SURGICAL HISTORY Procedure Laterality Date - APPENDIX PELVIC LTD NON OB - EXCISION TONSIL LESIONS BILATERAL - PAST SURGICAL HISTORY OF palstic surgery of the Lt: Current Outpatient Medications Medication Sig Dispense Refill - losartan (COZAAR) 50 mg tablet Take 50 mg by mouth once daily. - probenecid 500 mg tablet Take 500 mg by mouth twice daily. - losartan-hydrochlorothiazide (HYZAAR) 50-12.5 mg per tablet Take by mouth once daily. - melatonin 10 mg tab Melatonin Melatonin Active 10 MG BEDTIME May 11, 2019 9:04am 05-11-[address] [facility] ([id number]) - Saw Barton 160 mg capsule Saw palmetto extract Saw Barton Active 160 MG TWICE A DAY May 11, 2019 9:04am give with meal/snack 05-11-[address] [facility] ([id number]) - cyanocobalamin 1,000 mcg/mL inject 1ml (1000 mcg) INTRAMUSCULARLY EVERY month DIRECTED - cholecalciferol (VITAMIN D3) 1,000 unit tab tablet Take 2 tablets by mouth once daily. - blood sugar diagnostic (ACCU-CHEK GUIDE) test strip Use as instructed. To check blood sugars 2 times daily. 1 Bottle 11 - Blood Glucose Control High and Low (ACCU-CHEK GUIDE L1-L2 CTRL AYANA) soln Use as directed 1 Each 0 - Lancets (ACCU-CHEK MULTICLIX LANCET) lancets Use as instructed. To check blood sugars twice daily. 100 Each 5 - Blood-Glucose Meter (ACCU-CHEK GUIDE GLUCOSE METER) mis To check blood sugars 2 times daily 1 Each 0 - ketoconazole (NIZORAL) 2 % cream APPLY A THIN LAYER TO AFFECTED AREAS ON FACE TWICE DAILY FOR FLARES, THEN ONCE DAILY FOR MAINTENANCE - Fluorouracil 5 % cream APPLY THIN LAYER OF CREAM TO FOREHEAD AND SCALP TWICE DAILY FOR 2 WEEKS. WASH HANDS WELL AFTER EACH USE No current facility-administered medications for this visit. ALLERGIES No Known Allergies FAMILY HISTORY Problem Relation Age of Onset - Diabetes Maternal Grandmother - Hypertension Mother Social History Tobacco Use - Smoking status: Never Smoker - Smokeless tobacco: Never Used Substance Use Topics - Alcohol use: Yes Alcohol/week: 2.5 standard drinks Types: 1 Cans of Beer (12oz) per week Comment: Socially - Drug use: No Review of Systems Answers for HPI/ROS submitted by the patient on 05/28/2021 Fatigue: Yes Night Sweats: No Recent Unintentional Weight Change: No Skin Color Changes: No Post-Nasal Drip: No Thyroid Pain (lower neck): No (more content not included)... 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 or storm [facility] Diagnosis Nodular goiter- Primary Unspecified nontoxic nodular goiter [facility] Diagnosis Toxic multinodular goiter- Primary 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 * Patient presents today for a sleep medicine consultation for concerns of * #Sleep Apnea * -diagnosed with sleep apnea in the remote past, initially started on CPAP and later transitioned toBiPAP; unclear for transition * -Current device is from 2016 and wants to get a new BIPAP device * -DME currently is [facility] --> would like to stick with them * -original SARAH symptoms: snoring, witnessed apneas, brain fog, daytime sleepiness * -states he feels significantly improved with PAP therapy and wears his BiPAP nightly * SLEEP AIDS: none * SLEEP SCHEDULE: * In bed: 10 PM * Subjective sleep latency: quickly * Final awakening time: 6-7AM * Overall estimate of total sleep time: 8 hours * Naps: 30 - 60 min nap around 1:30PM * Refreshing?: yes * Family Hx:daughter has SARAH * BREATHING DURING SLEEP: No symptoms or concerns about breathing at night. no breathing disturbance with PAP use. * MORNING SYMPTOMS: No morning headaches. No morning dry mouth. No morning sore throat. Refreshing sleep. * DAYTIME: No daytime sleepiness. No fatigue. No trouble remembering things in daytime. No trouble staying focused in daytime. Not irritable during the day. No drowsy driving. No history of car accidents due to drowsy driving. No near- miss car accidents due to drowsy driving. * HYPERSOMNIA: No symptoms of a hypersomnolence disorder. * LEGS AT NIGHT: No symptoms of restless legs syndrome (RLS). * MOVEMENTS IN SLEEP: No problematic movements in sleep. * PARASOMNIA: No symptoms of problem parasomnias. * SARAH Treatment: PAP (Positive airway pressure). * DOWNLOAD: In clinic today. * Dates of compliance: 30. * Usage >=4 hours (%): 100 * Average usage (all days): 9 hours. * Type of Machine: ResMed. * Type of Mask: nasal pillows. * Mode / Pressure Settings: Auto CPAP: 13 - , 9 cmH2O * Leaks: 95th percentile: 42. * AHI (from download): 6. [id number] Work Phone: Reason for referral (narrative)* Outpatient Procedure (Routine) - Closed Specialty Diagnoses / Procedures Referred By Mehdi t Ref[facility] To [facility] Diagnoses Preoperative examination Toxic multinodular goiter Primary hypertension Procedures ECG COMPLETE ECG ROUTINE ECG W/LEAST 12 LDS W/I&R Teresa Soto PA-C [address] [address] [facility] [address] [place] [address] Referral ID Status Reason Start Date Expiration Date V isits Requested Visits Authorized [id number] Closed Auto-Generate d Referral 07/28/2021 07/28/2022 1 1 [facility] Summary Purpose Family History No Family History Records FoundNo Family History Records FoundNo Family History Records FoundNo Family History Records FoundNo Family History Records FoundNo Family History Records FoundNo Family History Records FoundNo Family History Records Found Advance Directives No Advanced Directives Records FoundDocuments on File Type Date Recorded Patient Oncology Radiation Physician Expl anation Advance Directive(s) 03/12/2017 11:14 AM Advance Directive(s) 01/31/2017 11:16 AM Documents on File Type Date Recorded Patient Oncology Radiation Physician Expl anation Advance Directive(s) 07/18/2021 10:04 AM Advance Directive(s) 03/12/2017 11:14 AM Advance Directive(s) 01/31/2017 11:16 AM Documents on File Type Date Recorded Patient Oncology Radiation Physician Expl anation Advance Directive(s) 07/18/2021 10:04 AM Advance Directive(s) 03/12/2017 11:14 AM Advance Directive(s) 01/31/2017 11:16 AM Medications Administered Section Inactive Administered Medications - up to 3 most recent administrations Medication Order MAR Action Action Date Dose Rate Site lidocaine 10 mg/mL (1 %) 50 mg injection (XYLOCAINE) 50 mg (5 mL), INTRADERMAL, ONCE, 1 dose, On Sat06/21/21 at 1300 Given 06/21/2021 1:27 PM EDT 50 mg Other Chief Complaint New patient visit for Sleep apnea.Follow up visit. Additional Source Comments (unrecognized sect ion and content) No Status Records FoundNo Status Records FoundNo Status Records FoundNo Status Records FoundNo Status Records FoundNo Status Records FoundNo Status Records FoundNo Status Records Found INFORMATION SOURCE (unrecogn ized section and content) DATE CREATED AUTHOR AUTHOR'S ORGANIZ ATION 02/06/2019 [facility] DATE CREATED AUTHOR AUTHOR'S ORGANIZ ATION 02/17/2020 [facility] DATE CREATED AUTHOR AUTHOR'S ORGANIZ ATION 08/10/2021 [facility] DATE CREATED AUTHOR AUTHOR'S ORGANIZ ATION 10/26/2021 [facility] DATE CREATED AUTHOR AUTHOR'S ORGANIZ ATION 08/15/2022 [facility] DATE CREATED AUTHOR AUTHOR'S ORGANIZ ATION 08/15/2022 [facility] DATE CREATED AUTHOR AUTHOR'S ORGANIZ ATION 03/04/2023 [facility] Source Comments (unrecognize d section and content) In the event this informatio n is protected by the Federal Confidentiality of Alcohol and Drug Abuse Patient Records regulations: The Federal rules restrict any use of the information to criminally investigate or prosecute any alcohol or drug abuse patient.[facility] the event this information is protected by the Federal Confidentiality of Alcohol and Drug Abuse Patient Records regulations: The Federal rules restrict any use of the information to criminally investigate or prosecute any alcohol or drug abuse patient.[facility] the event this information is protected by the Federal Confidentiality of Alcohol and Drug Abuse Patient Records regulations: The Federal rules restrict any use of the information to criminally investigate or prosecute any alcohol or drug abuse patient.[facility] the event this information is protected by the Federal Confidentiality of Alcohol and Drug Abuse Patient Records regulations: The Federal rules restrict any use of the information to criminally investigate or prosecute any alcohol or drug abuse patient.[facility] the event this information is protected by the Federal Confidentiality of Alcohol and Drug Abuse Patient Records regulations: The Federal rules restrict any use of the information to criminally investigate or prosecute any alcohol or drug abuse patient.[facility] the event this information is protected by the Federal Confidentiality of Alcohol and Drug Abuse Patient Records regulations: The Federal rules restrict any use of the information to criminally investigate or prosecute any alcohol or drug abuse patient.[facility] the event this information is protected by the Federal Confidentiality of Alcohol and Drug Abuse Patient Records regulations: The Federal rules restrict any use of the information to criminally investigate or prosecute any alcohol or drug abuse patient.[facility] Care Teams (unrecognized sec tion and content) Cruise Agent Relationship Specialty Start Date End Date Ofe Pineda Chi [address] [address] PCP - General Gerontology 03/14/18 Cruise Agent Relationship Specialty Start Date End Date Ofe Pineda Chi [address] [facility] [address] [place] [address] PCP - General Gerontology 03/14/18 Cruise Agent Relationship Specialty Start Date End Date Ofe Pineda Chi [address] [place] [address] PCP - General Gerontology 03/14/18 Ja[address] Yung [address] [place] [address] Cardiology 08/01/21 Cruise Agent Relationship Specialty Start Date End Date Ofe Pineda Chi [address] [place] [address] PCP - General Gerontology 03/14/[address] [place] [address] Cardiology 08/01/21 Cruise Agent Relationship Specialty Start Date End Date Ofe Pineda [address] [place] [address] PCP - General Gerontology 03/14/18 [address]ung [address] [place] [address] Cardiology 08/01/21 Cruise Agent Relationship Specialty Start Date End Date Ofe Pineda Chi [address] [place] [address] PCP - General Gerontology 03/14/[address] Yung [address] [place] [address] Cardiology 08/01/21 Reason for Visit (unrecogniz ed section and content) Reason Comments Thyroid Nodule Reason Comments Anesthesia Consult Reason Comments Post Op Reason Comments Request Outside Medical Records FOR RECORDS PERTAINING TO PATIENTS WHO ARE OR HAVE BEEN ENROLLED IN A CHEMICAL DEPENDENCY/SUBSTANCEABUSE PROGRAM, SOME INFORMATION MAY BE OMITTED. This clinical summary was aggregated from multiple sources. Caution should be exercised in using it in the provision of clinical care. This summary normalizes information from multiple sources, and as a consequence, information in this document may materially change the coding, format and clinical context of patient data. In addition, data may be omitted in some cases. CLINICAL DECISIONS SHOULD BE BASED ON THE PRIMARY CLINICAL RECORDS. [facility]. provides no warranty or guarantee of the accuracy or completeness of information in this document.
[2023-03-10 15:08] LABS: H.Pylori Breath Test Negative (Negative)
== END | disposition home or self-care (01) ==
LOC: POLAB3 15:46
PROVIDERS: PCP Family Medicine Geriatric Medicine; Visit Provider Family Medicine Geriatric Medicine
DX: R10.9 Unspecified abdominal pain (principal)
CPT/HCPCS: 83013

== ENCOUNTER → 2023-05-15 | Outpatient (CLI) | payer MEDICARE, OTHER, SELFPAY ==
--- NOTE | 2023-05-15 13:52 | ECHOCS_ITS ---
Reason For Study: MURMUR Procedure This was a 2D Doppler, Color Flow transthoracic echocardiogram. The study was technically difficult. Due to poor apical acoustic windows. Contrast injection was performed. Exam performed in department. Left Ventricle Moderate concentric left ventricular hypertrophy. The left ventricular ejection fraction is 55 %. Septal motion consistent with bundle branch block. Right Ventricle Normal right ventricle. Atria The left atrium is mildly enlarged. The right atrium is not well visualized. Mitral Valve Mild focal mitral valve calcification. Tricuspid Valve The tricuspid valve is not well visualized. Trivial tricuspid valve insufficiency. Unable to estimate RV systolic pressure due to insufficient tricuspid regurgitant envelope. Aortic Valve Trisinus/trileaflet aortic valve. Mild focal aortic valve calcification. Mild aortic stenosis. Mild (1+) aortic valve insufficiency. Pulmonic Valve The pulmonic valve is not well visualized. Great Vessels Normal sized aortic root. Pericardium/Pleural No pericardial effusion. Medication 22 gauge I.V. with prn adaptor inserted into left arm. Diluted definity 3.5ml given slow IV push to enhance endocardial definition. MMode/2D Measurements & Calculations LVIDd: 4.7 cm IVSd: 1.3 cm LVOT diam: 2.3 cm LVIDs: 3.5 cm LVPWd: 1.4 cm RVDd: 3.5 cm FS: 25.3 % LVOT area: 4.2 cm2 Ao root diam: 3.7 cm LAV(MOD-sp4): 65.1 ml LVAd ap4: 38.5 cm2 LVLd ap4: 9.3 cm EDV(MOD-sp4): 130.4 ml EDV(sp4-el): 135.6 ml LVAs ap4: 24.1 cm2 LVLs ap4: 7.5 cm ESV(MOD-sp4): 62.7 ml ESV(sp4-el): 65.4 ml EF(MOD-sp4): 51.9 % EF(sp4-el): 51.8 % SV(MOD-sp4): 67.7 ml SV(sp4-el): 70.2 ml LA A4 area: 21.3 cm2 LA dimension(2D): 3.5 cm TAPSE: 2.1 cm Time Measurements MV dec time: 0.32 sec Doppler Measurements & Calculations MV E max brennen: 48.2 cm/sec Lat Peak E' Brennen: 7.3 cm/sec Med Peak E' Brennen: 3.5 cm/sec MV A max brennen: 95.5 cm/sec E/E' lat: 6.6 E/E' med: 13.7 MV E/A: 0.51 MV V2 max: 105.1 cm/sec MV P1/2t max brennen: 52.0 cm/sec Ao V2 max: 198.7 cm/sec MV max P.4 mmHg MV P1/2t: 103.7 msec Ao max P.8 mmHg MV V2 mean: 48.6 cm/sec Ao V2 mean: 147.4 cm/sec MV mean P.2 mmHg MV dec slope: 146.9 cm/sec2 Ao mean P.5 mmHg MV V2 VTI: 21.4 cm MVA(P1/2t): 2.1 cm2 Ao V2 VTI: 41.8 cm AV (velocity ratio): 0.47 MVA(VTI): 3.8 cm2 LUIS ALFREDO(I,D): 2.0 cm2 LUIS ALFREDO(V,D): 1.8 cm2 LV V1 max: 86.4 cm/sec SV(LVOT): 81.9 ml PA V2 max: 137.5 cm/sec LV V1 max P.0 mmHg PA V2 mean: 89.1 cm/sec LV V1 mean P.8 mmHg LV V1 mean: 63.6 cm/sec LV V1 VTI: 19.7 cm TR max brennen: 175.7 cm/sec TR max P.3 mmHg ECHO/Echo Complete W/ Contrast Interpretation Summary The study was technically difficult. Moderate concentric left ventricular hypertrophy. The left ventricular ejection fraction is 55 %. Mild aortic stenosis. Mild (1+) aortic valve insufficiency. Ordering Physician: Dennise Booker Referring Physician: Glenn Mon Chi Performed By: Luz Loco RDCS, RVT
--- OUTSIDE RECORDS SUMMARY | 2023-05-15 21:40 | XMS RPT_ITS | CCD ---
Author Name Unknown Address [address] [place] [address] Organization [facility] Care Team Providers Care 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 Name Role Phone ALEX RICE Unavailable Unavailable [facility] Unavailable Unavailable [facility] Unavailable Unavailable Ofe Pineda Chi Primary Care Provider Yung Pablo Unavailable Ofe Pineda Chi Primary Care Provider [phone] Yung Pablo Unavailable Sveta Pineda Unavailable Unavailable Unavailable Dr. Sveta Pineda Primary Care Unavailable KRISEDISHA Referring Unavaila ble KRISE, DISHA MARIE Attending Unavaila ble KRISE, DISHA MARIE Attending Unavaila Dr. Sveta Lopez Primary Care Unavailable Self, Referral Referring Unavailable OFE PINEDA CHI Primary Care Unavailable DROJEFRY RUIZ Attending Unavailab le OFE PINEDA CHI Primary Care Unavailable Allergies Allergy Classification Reported Allergen(s) Allergy Type Date of Onset Reaction(s) Facility (4 sources) Scopolamine; Translations: [SCOPOLAMINE] Drug Allergy 08-03-2021 Mental Status Change [facility] Medications Completed/Discontinued Medications Medication Drug [...] (1 source) Unknown / UNK(Unknown) Onset: 01-10-2017 Unclassified (1 source) Dental pain since Saturday. It is hard to sleep. Onset: 04-15-2023 Past or Other Problems Problem Classification Problem [...] Clinician Alex diaz 08-08-2022 11:00-0400 8 1 [employer] Work Phone: CS-Vrlfxurncq-Fridcr 220 Work Phone: Encounters Encounter Date Encounter Type Care Provider Facility Start: 04-15-2023 Emergency department patient visit Vasopharm Facility:[facility] Start: 02-10-2023 End: 02-10-2023 Emergency department patient visit Vasopharm Facility:[facility] Start: 08-08-2022 Office outpatient vi sit 15 minutes Ofe-Chi Elieser Work Phone: QJ-Prstkiwcrx-Knlsbx 220 Work Phone: Start: 08-08-2022 ambulatory PAC JEFRY WALLER Facility:[id number] Start: 05-30-2022 Office consultation new/estab patient 60 min Ofe-Chi Elieser Work Phone: YX-Sjbbldwbzd-Czntcv 220 Work Phone: Start: 05-30-[address] Sveta Pineda [facility] ty:[id number] Start: 08-16-2021 End: 08-16-2021 Patient encounter procedure Wagner Jacobson MD Work Phone: Endocrine Surgery Procedures Date Procedure Procedure Detail Performing Clinician Start: 08-03-2021 Antibody screen Plan of Treatment Date Care Activity Detail Author Start: 09-26-2027 Urine microalbumin profile DTAP,TDAP,TD (2 - Td or Tdap) [facility] Start: 08-21-2023 FUV, Provider: Jefry Waller, Status: Pen, Time: 9:00 AM FUV, Provider: Jefry Waller, Status: Pen, Time: 9:00 AM JR-Zuucnlyjoe-Kqqbkt 220 Work Phone: Start: 11-02-2021 Influenza vaccination [facility] Start: 03-04-2021 ADVANCE DIRECTIVE DISCUSSION ADVANCE DIRECTIVE DISCUSSION [facility] Start: 12-12-2018 Hepatitis B screening URINE ALBUMIN:CREATININE RATIO [facility] Start: 09-25-2018 3 comp foot exam completed DIABETIC FOOT EXAM [facility] Start: 09-23-2018 Hepatitis B surface antibody level LDL CHOLESTEROL [facility] Start: 08-01-2018 Hepatitis C antibody, confirmatory test DILATED RETINAL EXAM [facility] Start: 12-10-2017 Hemoglobin A1c/Hemoglobin.total in Blood HBA1C [facility] Start: 1941 COVID-19 VACCINE (#1) COVID-19 VACCINE (#1) [facility] Start: 1941 COVID-19 VACCINE (1) COVID-19 VACCINE (1) [facility] Start: 06-23-1937 COVID-19 VACCINE (#1) COVID-19 VACCINE (#1) [facility] CYTOLOGY NON-MUSSEL OPENER CYTOLOGY NON-GY N Lab Routine Toxic multinodular goiter Ordered: 06/21/2021 [facility] Work Phone: Immunizations Immunization Date Immunization Notes Care Provider Fa cility 09-08-2021 Comirnaty 30 MCG/0.3 ML Intramuscular Suspension Sveta Pineda Work Phone: LS-Gxzzluyejm-Zqblr a 220 Work Phone: 12-26-2020 Pfizer-BioNTech COVI D-19 Vacc 30 MCG/0.3ML Intramuscular Suspension Ofe-Chi Elieser Work Phone: KN-Nydyeqhmny-Jcehu a 220 Work Phone: 11-21-2020 influenza, injectabl e, quadrivalent, contains preservative Ofe-Chi Elieser Work Phone: YT-Csfritmxli-Uxqas a 220 Work Phone: 04-17-2020 Pfizer-BioNTech COVI D-19 Vacc 30 MCG/0.3ML Intramuscular Suspension Ofe-Chi Elieser Work Phone: JX-Nuldtbykih-Pqgru a 220 Work Phone: 03-27-2020 Pfizer-BioNTech COVI D-19 Vacc 30 MCG/0.3ML Intramuscular Suspension Ofe-Chi Elieser Work Phone: NO-Oeliquuhdt-Dtdrn a 220 Work Phone: 11-16-2019 influenza, injectabl e, quadrivalent, contains preservative Ofe-Chi Elieser Work Phone: GA-Eahzdkqatx-Sznhg a 220 Work Phone: 10-16-2018 influenza, injectabl e, quadrivalent, contains preservative Ofe-Chi Elieser Work Phone: QH-Pjmnopjqjx-Barzj a 220 Work Phone: 01-02-2018 influenza, high dose seasonal, preservative-free Ilda Lopez MD Work Phone: [facility] 10-10-2017 zoster vaccine recombinant Ilda Lopez MD Work Phone: [facility] 10-09-2017 zoster vaccine recombinant Ofe-Chi Elieser Work Phone: BZ-Gcqdepdysg-Totjl a 220 Work Phone: 09-25-2017 tetanus toxoid, redu joy diphtheria toxoid, and acellular pertussis vaccine, adsorbed Ilda Lopez MD Work Phone: [facility] 08-09-2017 zoster vaccine recombinant Ilda Lopez MD Work Phone: [facility] 12-17-2016 influenza, high dose seasonal, preservative-free Ilda Lopez MD Work Phone: [facility] 12-17-2016 pneumococcal polysaccharide vaccine, 23 valent Ilda Lopez MD Work Phone: [facility] 12-03-2015 influenza, high dose seasonal, preservative-free Ilda Lopez MD Work Phone: [facility] 03-04-2011 pneumococcal conjuga te vaccine, 13 valent Ilda Lopez MD Work Phone: [facility] 03-04-2011 zoster vaccine, live Ilda Lopez MD Work Phone: [facility] Payers Date Payer Category Payer Private Health Insurance HUMANA HUMANA MEDICARE SUPPLEMENT [id number] 2015-Present [phone] [address] [address] [place] [address] Indemnity [id number] 2015 Private Health Insurance HUMANA HUMANA MEDICARE SUPPLEMENT [id number] 2015-Present [phone] [address] [address] [place] [address] Indemnity [id number] 2015 Private Health Insurance [id number] 2006 Medicare MEDICARE MEDICAR E A AND B [id number] 2006-Present [phone] [address] [address] [place] [address] Medicare [id number] 2006 Medicare MEDICARE MEDICAR E A AND B [id number] 2006-Present [phone] [place] [address] Medicare [id number] 2006 Medicare [id number] 2001 Medicare [id number] 1935 Unknown [id number] 1935 Unknown [id number] Medicare [id number] Unknown Social History Date Type Detail Facility Start: 02-10-2013 Tobacco smoking stat [facility] Never smoked tobacco [facility] Start: 02-10-2013 Tobacco use and exposure Smoke less tobacco non-user [facility] Start: 05-31-2021 End: 08-01-2021 Alcohol intake Current drinker of alcohol (finding) [facility] Start: 05-31-2021 End: 08-01-2021 Alcohol intake [facility] Start: 02-10-2013 History SDOH Alcohol Comment Socially [facility] Start: 1935 Sex Assigned At Male [facility] Start: 05-21-2021 End: 08-04-2021 Exposure to SARS-CoV-2 (event) Not sure [facility] Medical Equipment Procedure Code Equipment [...] study was1 year ago-will send order to [facility] for new BiPAP device, settings 14/11, which are his current settings-Diet, exercise, and weight loss were emphasized today in clinic, as were non-supine sleep, avoiding alcohol in the late evening, and driving or operating heavy machinery when sleepy.Update Today:#Sleep Apnea-diagnosed with sleep apnea in the remote past, initially started on CPAP and later transitioned to BiPAP; unclear reason for transition-here for compliance check after new device ordered from [facility]-original SARAH symptoms: snoring, witnessed apneas, brain fog, [...] - 60 min nap around 1:30PMRefreshing?: yes EG-Ezyffwixfq-Qghxna 220 Work Phone: 08-16-2021 Note HNO ID: [id number] Author: Wagner Jacobson MD Service: ? Author Type: Physician Type: Progress Notes Filed: 08/16/2021 3:03 PM Note Text: POST-OP CLINIC VISIT August 16, 2021 1:21 PM Tez Licea [id number] DOS: 08/03/21 SURGERY: Left thyroid lobectomy and [...] FSA1. MR 08/03/21 Gross examination performed at [facility], [address], [place] [id number] CLIA# [id number] ? B. THYROID LOBE LEFT AND ISTHMUS. [...] - External surface of the left lobe Owen -resection margin of isthmus Sectioning: The left [...] identified Gross photograph: No Cassette Summary: B1?B3 junior sales representative sections of left lobe B4?B5 Isthmus [...] clinic -Plan to follow up with local imaging assistant for TSH levels -Return to clinic as needed Makayla Scanlon MD General Surgery Resident Saw and examined the patient. I agree with above. Wagner Jacobson MD [facility] 08-16-2021 History of Present illness Narrative POST-OP CLINIC VISIT August 16, 2021 1:21 PM Tez Licea [id number] DOS: 08/03/21 SURGERY: Left thyroid lobectomy and [...] FSA1. MR 08/03/21 Gross examination performed at [facility], [address], [place] [address] CLIA# [id number] B. THYROID LOBE LEFT AND ISTHMUS. Specimen [...] - External surface of the left lobe Owen -resection margin of isthmus Sectioning: The left [...] Gross photograph: No Cassette Summary: B1 B3 junior sales representative sections of left lobe B4 B5 [...] clinic -Plan to follow up with local imaging assistant for TSH levels -Return to clinic as needed Makayla Scanlon MD General Surgery Resident Saw and examined the patient. I agree with above. Wagner Jacobson MD documented in this encounter [facility] 08-16-2021 Instructions Dennise Paredes Ma - 08/16/2021 12:55 PM EDT Thank you for choosing the [facility] Department of Endocrinology, Diabetes and Metabolism. Did you know that you need to call 48 hours in advance of your scheduled visit, if you are unable to make your appointment? [facility] [place] thanks you for your commitment, because patients not showing to their appointment results in a lost opportunity for patients to receive [facility] health care at the [facility]. To Cancel an appointment, please choose one of the following: - Call the Appointment Call Center at [phone] - From [employer], Go to Appointments Cancel Appts If cancelling, consider your need to reschedule to prevent further delays in your care. To Schedule an appointment, please choose one of the following: - Call the Appointment Call Center at [phone] - From [employer], Go to Appointments Request an Appt documented in this encounter [facility] 08-04-2021 Note HNO ID: [id number] Author: David Beck MD Service: General Surgery [...] on Ca/VitD TID SIGNATURE: David Beck MD [facility] 08-03-2021 Note HNO ID: [id number] Author: Capri Gaitan APRN.FLAT MACHINE CUTTER Service: ? Author Type: Nurse Commercial Litigation Paralegal Type: Anesthesia Procedure Notes Filed: 08/03/2021 2:24 PM Note Text: ANESTHESIOLOGY PROCEDURE NOTE PIV General Information Staffing FLAT MACHINE CUTTER: Capri Gaitan APRN.FLAT MACHINE CUTTER Preparation Site Prep: alcohol Procedure Details Indication: need for IV access Needle Size/Type: 16 gauge angiocath Orientation: Left Location: Hand Imaging Guidance Used: No SIGNATURE: Capri Melo APRN.CRNA PATIENT NAME: Tez Licea DATE: August 03, 2021 TIME: 2:24 PM CSN: [id number] [facility] 08-03-2021 Note HNO ID: [id number] Author: Capri Gaitan APRN.FLAT MACHINE CUTTER Service: ? Author Type: Nurse Commercial Litigation Paralegal Type: Anesthesia Procedure Notes Filed: 08/03/2021 1:51 PM Note Text: ANESTHESIOLOGY PROCEDURE NOTE PIV General Information Staffing FLAT MACHINE CUTTER: Beatrice Leon APRN.FLAT MACHINE CUTTER Procedure Details Indication: need for IV access Needle Size/Type: 18 gauge angiocath Orientation: Right Location: Hand Imaging Guidance Used: No SIGNATURE: Capri Melo APRN.CRNA PATIENT NAME: Tez Licea DATE: August 03, 2021 TIME: 1:51 PM CSN: [id number] [facility] 08-03-2021 Note HNO ID: [id number] Author: Capri Gaitan APRN.FLAT MACHINE CUTTER Service: ? Author Type: Nurse Commercial Litigation Paralegal Type: Anesthesia Procedure Notes Filed: 08/03/2021 1:50 PM Note Text: ANESTHESIOLOGY PROCEDURE NOTE PIV General Information Staffing FLAT MACHINE CUTTER: Beatrice Leon APRN.FLAT MACHINE CUTTER Preparation Site Prep: alcohol Procedure Details Needle Size/Type: 18 gauge angiocath Orientation: Left Location: Hand Imaging Guidance Used: No SIGNATURE: Capri Melo APRN.CRNA PATIENT NAME: Tez Licea DATE: August 03, 2021 TIME: 1:49 PM CSN: [id number] [facility] 08-03-2021 Note HNO ID: [id number] Author: Mayelin Woodson MD Service: Anesthesiology Author Type: Anesthesiologist Type: Anesthesia Procedure Notes Filed: 08/03/2021 12:47 PM Note Text: ANESTHESIOLOGY PROCEDURE NOTE Airway General Information Procedure Start Time/Medication Administration: 08/03/2021 12:16 PM Patient location during procedure: OR Timeout Performed Pre-procedure: timeout performed Consent Obtained: Yes Patient identity confirmed: arm band Staffing FLAT MACHINE CUTTER: Beatrice Leon APRN.FLAT MACHINE CUTTER Performed by: KRISTI Indications and Patient Condition [...] August 03, 2021 TIME: 12:45 PM CSN: [id number] [facility] 08-02-2021 Miscellaneous Notes Message left at for Keshia at Dr Pablo's office requesting most recent office note and cardiac testing. My fax and phone number provided. Maulik Randall RN August 02, 2021 9:59 AM documented in this encounter [facility] 08-01-2021 History and physical note [...] weeks Cardiovascular: +HTN +LBBB - follows with wafer mounter annually, Dr. Pablo, last visit was 05/2021. Negative for Recent TX, Arrhythmia, CAD, CHF, Valvular Heart Disease, DVT/PE [...] or any previous visit (from the past 92721 hour(s)). PENDING Assessment/Plan Hypertension Assessment: Stable, on RX. BP today 146/66. 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 Sleep apnea Assessment: Compliant on BiPAP. Type 2 diabetes mellitus (HCC) Assessment: Prediabetes per pt, no medications. 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 LBBB (left bundle branch block) Assessment: ECG pending, follows with wafer mounter annually, Dr. Pablo, last visit was 05/2021. [...] pending LABS and EKG. Records requested from wafer mounter for chart completeness. CONSULTS: Patient does not require consults for optimization at this time. The Following Tests/Procedures Have Been Initiated: Orders placed by surgeon/surgical service in [facility]. Orders Placed This Encounter ECG COMPLETE Standing Status: Future Standing Expiration Date: 07/28/2022 Planned Anesthetic: Per anesthesia choice Instructions Given to Patient: Instructions located in the after visit summary. Patient given verbal and written preop instructions and voices comprehension and compliance. SIGNATURE: Teresa Soto PA-C PATIENT NAME: Tez Licea DATE: July 28, 2021 TIME: 6:25 PM documented in this encounter [facility] 08-01-2021 Instructions Teresa Soto PA-C - 08/01/2021 11:30 AM EDT PATIENT PREOPERATIVE INSTRUCTIONS Wagner Jacobson MD has scheduled you for your procedure at this surgery center: [facility]: [phone] -- [address] [place] [address]. Please read below carefully for your personalized [...] Procedures: - YOU MUST HAVE A RESPONSIBLE APPLICATIONS ARCHITECT TAKE YOU HOME. A MANAGER MEDICAL OR 8TH GRADE TEACHER CANNOT BE MADE A RESPONSIBLE APPLICATIONS ARCHITECT. - We recommend that a responsible person [...] Advance Directive, please fax a copy to [phone] or email to for it to be [...] chart that day. documented in this encounter [facility] 06-21-2021 Note HNO ID: [id number] Author: Wagner Jacobson MD Service: ? Author Type: Physician Type: Progress Notes Filed: 06/21/2021 11:46 AM Note Text: Endocrinology Metabolism [place] [facility] Wagner Jacobson M.D. Section of Endocrine Surgery and Advanced Laparoscopic Surgery [address] [place] [address], [place] [address] ENDOCRINE SURGERY [id number] 1935 Surgeon: Dr. Wagner Jacobson REFERRING PROVIDER: Ilda Lopez [address] [place] [address] The patient was referred by the above [...] Melatonin Active 10 MG BEDTIME May 11, 2019:04am 05-11-2019 [facility] ([id number]) - Saw Clover 160 mg capsule Saw palmetto extract Saw Clover Active 160 MG TWICE A DAY May 11, 2019 9:04am give with meal/snack 05-11-2019 [facility] ([id number]) - cyanocobalamin 1,000 mcg/mL inject 1ml (1000 [...] - Blood-Glucose Meter (ACCU-CHEK GUIDE GLUCOSE METER) misc To check blood sugars 2 times daily [...] 09/14/2020 0.06 (A) (more content not included)... [facility] 06-21-2021 History of Present illness Narrative [facility]ocrinology [facility] [place] [facility] Wagner Jacobson M.D. Section of Endocrine Surgery and Advanced Laparoscopic Surgery [address] [place] [address], [place] [address] ENDOCRINE SURGERY NEW CONSULTATION NAME: Tez [facility] NO: [id number] : 1935 Surgeon: Dr. Wagner Jacobson REFERRING PROVIDER: Ilda Lopez [address] [place], [place] [address] The patient was referred by the above [...] MG BEDTIME May 11, 2019 9:04am 05-11-2019 [facility] ([id number]) Saw Clover 160 mg capsule Saw palmetto extract Saw Clover Active 160 MG TWICE A DAY May 11, 2019 9:04am give with meal/snack 05-11-2019 [facility] ([id number]) cyanocobalamin 1,000 mcg/mL inject 1ml (1000 mcg) [...] daily. Blood-Glucose Meter (ACCU-CHEK GUIDE GLUCOSE METER) [facility] To check blood sugars 2 times daily [...] which included preparing to see the patient, ziwc-ks-zlqz patient care, completing clinical documentation, obtaining and/or reviewing separately obtained history, performing a medically appropriate examination, counseling and educating the patient/family/caregiver, ordering medications, tests, or procedures, communicating with other HCPs (not separately reported), independently interpreting results (not separately reported), communicating results to the patient/family/caregiver and care coordination (not separately reported). Sincerely, Wagner Jacobson MD 06/21/2021 CC: Ilda Lopez [address] [facility] [address] Fax: documented in this encounter [facility] 06-21-2021 Instructions Johnny Beasley MA - 06/21/2021 10:27 AM EDT Thank you for choosing the [facility] Department of Endocrinology, Diabetes and Metabolism. Did you know that you need to call 48 hours in advance of your scheduled visit, if you are unable to make your appointment? [facility] [place] thanks you for your commitment, because patients not showing to their appointment results in a lost opportunity for patients to receive world class health care at the [facility]. To Cancel an appointment, please choose one of the following: - Call the Appointment Call Center at [phone] - From [facility], Go to Appointments Cancel Appts If cancelling, consider your need to reschedule to prevent further delays in your care. To Schedule an appointment, please choose one of the following: - Call the Appointment Call Center at [phone] - From [facility], Go to Appointments Request an Appt documented in this encounter [facility] 06-15-2021 Miscellaneous Notes 06/15 - intake completed. Dr Mendel Lopez notes FNA in 2016 but pt says this is incorrect info and that he has never had a FNA. Images imported and labs in scanned documents ENDOCRINE SURGERY PATIENT WORKSHEET Initial Call Date: June 15, 2021 Reason for Consult/ Referral: Thyroid Nodule PATIENT DEMOGRAPHICS Name: Tez Licea [facility]#: [id number] : 1935 AGE: [age] year old Contact Numbers: Home: (home) Work: There is no work phone number on file. PATIENT PHYSICIAN INFORMATION Referring Doctor: Ilda Lopez MD Address: Phone: Analyst Market Intelligence: Ilda Lopez MD Address: Phone: PCP: Ofe Pineda MD [address] [place] [phone] PAST TREATMENT Office notes: SEE EPIC Medications: NONE THAT APPLY Pre-Visit Testing STUDY/TEST DATE ORDERED/REQUESTED DATE RECEIVED/COMPLETED ENTIRE PANEL TSH FREE T4 FREE T3 Imaging Reports: SEE EPIC CD of Images: SEE EPIC FNA: yes: 2015 FNA Slides: Slides requested from outside facility (Date received: ) Has the patient ever had thyroid or parathyroid surgery before: No Operative Reports: NONE AVAILABLE Pathology Reports: Requested from referring physician (Date received: ) Patient called to schedule consult with Dr. Jacobson Scheduled for 06/21/21 Toxic Thyroid Nodule Imaging and labs requested from [facility] 06/01/21. Images pushed to PACS per medical records and labs faxed. documented in this encounter [facility] 05-31-2021 Note HNO ID: [id number] Author: Ilda Lopez MD Service: ? Author [...] is following with Dr. Dante Colvin in [place] Restarted on methaimzole 6 months ago Was [...] Surgeon Dr. Mondragon who referred him to [facility] for thyroidectomy in conjunction with thoracic surgery Here with his and son to see if surgery is needed From Dr. Casillas note in 02/2020 Thyroid US [facility] 09/12/15 left lobe enlarged with multiple [...] MG BEDTIME May 11, 2019 9:04am 05-11-2019 [facility] ([id number]) - Saw Clover 160 mg capsule Saw palmetto extract Saw Clover Active 160 MG TWICE A DAY May 11, 2019 9:04am give with meal/snack 05-11-2019 [facility] ([id number]) - cyanocobalamin 1,000 mcg/mL inject 1ml (1000 [...] - Blood-Glucose Meter (ACCU-CHEK GUIDE GLUCOSE METER) [facility] To check blood sugars 2 times daily [...] (lower neck): No (more content not included)... [facility] Preoperative examination- Primary [...] crisis or storm documented [facility] Diagnosis Nodular goiter- Primary Unspecified nontoxic nodular goiter [facility] Diagnosis Toxic multinodular goiter- Primary Toxic multinodular goiter without mention of thyrotoxic crisis or storm [facility] N[facility]ative* Tez [...] new BIPAP device * -DME currently is [facility] --> would like to stick with them [...] percentile: 42. * AHI (from download): 6. TG-Fmrakqyvak-Zbeueg 220 Work Phone: Reason for referral (narrative)* Outpatient Procedure (Routine) - Closed Specialty Diagnoses / Procedures Referred By Contac t [facility] To [facility] Diagnoses Preoperative examination Toxic multinodular goiter Primary hypertension Procedures ECG COMPLETE ECG ROUTINE ECG W/LEAST 12 LDS W/I&R Teresa Soto PA-C [address] [address] [facility] [address] [place] [address] Referral ID Status Reason Start Date Expiration Date V isits Requested Visits Authorized [id number] Closed Auto-Generate d Referral 07/28/2021 07/28/2022 1 1 [facility] Summary Purpose Family History No Family History Records FoundNo Family History Records FoundNo Family History Records FoundNo Family History Records FoundNo Family History Records FoundNo Family History Records FoundNo Family History Records FoundNo Family History Records Found Advance Directives No Advanced Directives Records FoundDocuments on File Type Date Recorded Patient Upper Stitcher Expl anation Advance Directive(s) 03/12/2017 11:14 AM Advance Directive(s) 01/31/2017 11:16 AM Documents on File Type Date Recorded Patient Upper Stitcher Expl anation Advance Directive(s) 07/18/2021 10:04 AM Advance Directive(s) 03/12/2017 11:14 AM Advance Directive(s) 01/31/2017 11:16 AM Documents on File Type Date Recorded Patient Upper Stitcher Expl anation Advance Directive(s) 07/18/2021 10:04 AM Advance Directive(s) 03/12/2017 11:14 AM Advance Directive(s) 01/31/2017 11:16 AM Medications Administered Section Inactive Administered Medications - up to 3 most recent administrations Medication Order MAR Action Action Date Dose Rate Site lidocaine 10 mg/mL (1 %) 50 mg injection (XYLOCAINE) 50 mg (5 mL), INTRADERMAL, ONCE, 1 dose, On 06/21/21 at 1300 Given 06/21/2021 1:27 PM EDT [...] DATE CREATED AUTHOR AUTHOR'S ORGANIZ ATION 02/06/2019 [facility] DATE CREATED AUTHOR AUTHOR'S ORGANIZ ATION 02/17/2020 [facility] DATE CREATED AUTHOR AUTHOR'S ORGANIZ ATION [facility] DATE CREATED AUTHOR AUTHOR'S ORGANIZ ATION 10/26/2021 [facility] DATE CREATED AUTHOR AUTHOR'S ORGANIZ ATION 08/15/2022 [facility] DATE CREATED AUTHOR AUTHOR'S ORGANIZ ATION 08/15/2022 [employer] DATE CREATED AUTHOR AUTHOR'S ORGANIZ ATION 04/15/2023 [facility] Source Comments (unrecognize d section and content) In the event this informatio n is protected by the Federal Confidentiality of Alcohol and Drug Abuse Patient Records regulations: The Federal rules restrict any use of the information to criminally investigate or prosecute any alcohol or drug abuse patient.[facility] the event this information is protected by the Federal Confidentiality of Alcohol and Drug Abuse Patient Records regulations: The Federal rules restrict any use of the information to criminally investigate or prosecute any alcohol or drug abuse patient.[facility] the event this information is protected by the Federal Confidentiality of Alcohol and Drug Abuse Patient Records regulations: The Federal rules restrict any use of the information to criminally investigate or prosecute any alcohol or drug abuse patient.[facility] the event this information is protected by the Federal Confidentiality of Alcohol and Drug Abuse Patient Records regulations: The Federal rules restrict any use of the information to criminally investigate or prosecute any alcohol or drug abuse patient.[facility] the event this information is protected by the Federal Confidentiality of Alcohol and Drug Abuse Patient Records regulations: The Federal rules restrict any use of the information to criminally investigate or prosecute any alcohol or drug abuse patient.[facility] the event this information is protected by the Federal Confidentiality of Alcohol and Drug Abuse Patient Records regulations: The Federal rules restrict any use of the information to criminally investigate or prosecute any alcohol or drug abuse patient.[facility] the event this information is protected by the Federal Confidentiality of Alcohol and Drug Abuse Patient Records regulations: The Federal rules restrict any use of the information to criminally investigate or prosecute any alcohol or drug abuse patient.[facility] Care Teams (unrecognized sec tion and content) 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 Relationship Specialty Start Date End Date Ofe Pineda Chi [address] [facility] [address] [place] [address] PCP - General Gerontology 03/14/18 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 Relationship Specialty Start Date End Date Ofe Pineda Chi [address] [place] [address] PCP - General Gerontology 03/14/18 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 Relationship Specialty Start Date End Date Ofe Pineda Chi [address] [place] [address] PCP - General Gerontology 03/14/18 Yung Pablo [address] [place] [address] Cardiology 08/01/21 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 Relationship Specialty Start Date End Date Ofe Pineda Chi [address] [place] [address] PCP - General Gerontology 03/14/[address] [place] [address] Cardiology 08/01/21 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 [facility] [employer] [facility]. provides no warranty or guarantee of the accuracy or completeness of information in this document.
== END | disposition home or self-care (01) ==
LOC: CVS 13:51
PROVIDERS: PCP Family Medicine Geriatric Medicine; Referring Provider Nurse Practitioner Gerontology; Visit Provider Nurse Practitioner Gerontology
DX: R01.1 Cardiac murmur, unspecified (principal)
CPT/HCPCS: 93306; Q9957; A4216; C8929

== ENCOUNTER → 2023-05-30 | Outpatient (CLI) | payer MEDICARE, OTHER, SELFPAY ==
[2023-05-30 10:45] LABS: Absolute Lymphocyte Count 1.27 X10^3/uL (0.83-4.51); Absolute Neutrophil Count 3.1 X10^3/uL (2.0-7.7); Basophil# 0.03 X10^3/uL; Basophil% 0.6 % (0-1); Eosinophil# 0.24 X10^3/uL; Eosinophils% 4.9 % (0-5); Hemoglobin 14.4 g/dL (13.0-16.5); Lymphocyte # 1.27 X10^3/ul (0.83-4.51); Lymphocyte % 25.9 % (19-41); Mean Corp Hgb Conc 34.3 g/dL (32-36); Mean Corpuscular Hgb 30.6 pg (27.0-32.0); Mean Corpuscular Volume 89.4 fL (80-94); Mean Platelet Vol. 9.9 fl (6.2-12.0); Monocyte# 0.25 X10^3/uL; Monocyte% 5.1 % (0-10); NRBC Flagged by Analyzer 0 % (0-5); Neutrophil # 3.08 X10^3/uL (2.7-7.7); Neutrophil % 62.9 % (47-70); Platelet Count 187 K/mm3 (150-450); RBC Distribution Width CV 12.6 % (11.6-14.6); RBC Distribution Width SD 41.5 fl (35.1-43.9); White Blood Count 4.9 K/mm3 (4.4-11.0)
[2023-05-30 10:54] LABS: Vitamin D,25 Hydroxy 33.4 ng/mL
[2023-05-30 11:02] LABS: ALB/GLOB Ratio 1.1 RATIO (0.9-2.4); AST(SGOT) 29 U/L (15-37); Alanine Aminotransfer ALT/SGPT 46 U/L (16-61); Albumin, Serum 3.6 g/dL (3.2-5.0); Alkaline Phosphatase 91 U/L (45-117); Anion Gap 5 (5-15); BUN 24 mg/dL (7-18); BUN/Creat Ratio 18.8 RATIO (10-20); Calcium,Total 8.9 mg/dL (8.5-10.1); Chloride 110 mmol/L (98-107); Creatinine, Serum 1.28 mg/dL (0.70-1.30); EST Glomerular Filtration Rate 57 mL/min (>60); Est Glom Filt Rate - Afr Amer 69 mL/min (>60); Globulin 3.3 g/dL (2.2-4.2); Glucose 113 mg/dL (74-106); Potassium 4.4 mmol/L (3.5-5.1); Protein, Total 6.9 g/dL (6.4-8.2); Sodium Level 139 mmol/L (136-145); Thyroid Stim Hormone (TSH) 2.69 uIU/mL (0.358-3.74); Uric Acid 5.3 mg/dL (3.5-7.2)
== END | disposition home or self-care (01) ==
LOC: POLAB3 09:46
PROVIDERS: PCP Family Medicine Geriatric Medicine; Visit Provider Family Medicine Geriatric Medicine
DX: E11.65 Type 2 diabetes mellitus with hyperglycemia (principal); I10 Essential (primary) hypertension; M10.9 Gout, unspecified; E55.9 Vitamin D deficiency, unspecified
CPT/HCPCS: 36415; 80053; 82306; 84443; 84550; 85025

== ENCOUNTER → 2023-08-26 | Outpatient (CLI) | payer MEDICARE, OTHER, SELFPAY ==
--- NOTE | 2023-08-26 17:20 | RAD_ITS ---
INDICATION: RIGHT KNEE PAIN EXAMINATION/TECHNIQUE: X-RAY - RIGHT XR Knee 3 Views 3 VIEWS COMPARISON: none FINDINGS: SOFT TISSUES: No radiopaque foreign body. Mild prepatellar soft tissue edema. Diffuse peripheral atherosclerosis. BONES/JOINTS: No acute fracture or subluxation.. Normal alignment. Preservation of the joint space.. Mild medial compartment joint space narrowing. No sclerotic or destructive changes observed. RAD/Knee 3 Views IMPRESSION: Mild prepatellar soft tissue edema of uncertain significance. Correlate for clinical contusion or bursitis. Peripheral atherosclerosis. No acute osseous finding. Electronically Signed: Mane Candelario MD at 3:13 EDT ,
[2023-08-26 18:07] LABS: Absolute Lymphocyte Count 1.69 X10^3/uL (0.83-4.51); Absolute Neutrophil Count 6.8 X10^3/uL (2.0-7.7); Basophil# 0.04 X10^3/uL; Basophil% 0.4 % (0-1); Eosinophil# 0.28 X10^3/uL; Hematocrit 40.9 % (40-54); Hemoglobin 14.4 g/dL (13.0-16.5); Lymphocyte # 1.69 X10^3/ul (0.83-4.51); Mean Corp Hgb Conc 35.2 g/dL (32-36); Mean Corpuscular Hgb 31.2 pg (27.0-32.0); Mean Corpuscular Volume 88.5 fL (80-94); Mean Platelet Vol. 9.8 fl (6.2-12.0); Monocyte# 0.54 X10^3/uL; Monocyte% 5.8 % (0-10); NRBC Flagged by Analyzer 0 % (0-5); Neutrophil # 6.78 X10^3/uL (2.7-7.7); Neutrophil % 72.4 % (47-70); Platelet Count 179 K/mm3 (150-450); RBC Distribution Width CV 12.6 % (11.6-14.6); RBC Distribution Width SD 40.9 fl (35.1-43.9); Red Blood Count 4.62 M/mm3 (4.6-6.2); White Blood Count 9.4 K/mm3 (4.4-11.0)
[2023-08-26 18:53] LABS: ALB/GLOB Ratio 1.3 RATIO (0.9-2.4); AST(SGOT) 17 U/L (15-37); Alanine Aminotransfer ALT/SGPT 30 U/L (16-61); Albumin, Serum 3.9 g/dL (3.2-5.0); Alkaline Phosphatase 88 U/L (45-117); Anion Gap 7 (5-15); BUN 26 mg/dL (7-18); BUN/Creat Ratio 18.8 RATIO (10-20); CRP < 2.90 mg/L (0.0-3.0); Calcium,Total 8.7 mg/dL (8.5-10.1); Chloride 108 mmol/L (98-107); Creatinine, Serum 1.38 mg/dL (0.70-1.30); EST Glomerular Filtration Rate 52 mL/min (>60); Est Glom Filt Rate - Afr Amer 63 mL/min (>60); Glucose 114 mg/dL (74-106); Potassium 3.7 mmol/L (3.5-5.1); Protein, Total 6.9 g/dL (6.4-8.2); Sodium Level 139 mmol/L (136-145); Uric Acid 5.7 mg/dL (3.5-7.2)
[2023-08-26 18:56] LABS: Erythrocyte Sedimentation Rate 3 mm/hr (0-20)
== END | disposition home or self-care (01) ==
LOC: RAD 16:59
PROVIDERS: PCP Family Medicine Geriatric Medicine; Referring Provider Family Medicine Geriatric Medicine; Visit Provider Family Medicine Geriatric Medicine
DX: E79.0 Hyperuricemia without signs of inflammatory arthritis and tophaceous disease (principal); I10 Essential (primary) hypertension; M10.9 Gout, unspecified; M25.561 Pain in right knee
CPT/HCPCS: 36415; 73562; 80053; 84550; 85025; 85652; 86140

== ENCOUNTER → 2023-12-02 | Outpatient (CLI) | payer MEDICARE, OTHER, SELFPAY ==
[2023-12-02 15:44] LABS: Absolute Lymphocyte Count 1.35 X10^3/uL (0.83-4.51); Absolute Neutrophil Count 9.6 X10^3/uL (2.0-7.7); Basophil# 0.05 X10^3/uL; Basophil% 0.4 % (0-1); Eosinophils% 1.7 % (0-5); Hematocrit 44.4 % (40-54); Hemoglobin 15.3 g/dL (13.0-16.5); Lymphocyte # 1.35 X10^3/ul (0.83-4.51); Lymphocyte % 11.5 % (19-41); Mean Corp Hgb Conc 34.5 g/dL (32-36); Mean Corpuscular Hgb 31.3 pg (27.0-32.0); Mean Corpuscular Volume 90.8 fL (80-94); Mean Platelet Vol. 10.6 fl (6.2-12.0); Monocyte# 0.54 X10^3/uL; Monocyte% 4.6 % (0-10); NRBC Flagged by Analyzer 0 % (0-5); Neutrophil # 9.55 X10^3/uL (2.7-7.7); Neutrophil % 81.2 % (47-70); Platelet Count 171 K/mm3 (150-450); RBC Distribution Width CV 12.6 % (11.6-14.6); RBC Distribution Width SD 41.7 fl (35.1-43.9); Red Blood Count 4.89 M/mm3 (4.6-6.2); White Blood Count 11.8 K/mm3 (4.4-11.0)
[2023-12-02 16:31] LABS: ALB/GLOB Ratio 1.1 RATIO (0.9-2.4); AST(SGOT) 20 U/L (15-37); Alanine Aminotransfer ALT/SGPT 22 U/L (16-61); Albumin, Serum 3.9 g/dL (3.2-5.0); Alkaline Phosphatase 107 U/L (45-117); Anion Gap 9 (5-15); BUN 24 mg/dL (7-18); BUN/Creat Ratio 17.5 RATIO (10-20); Calcium,Total 9.4 mg/dL (8.5-10.1); Chloride 105 mmol/L (98-107); Creatinine, Serum 1.37 mg/dL (0.70-1.30); EST Glomerular Filtration Rate 52 mL/min (>60); Est Glom Filt Rate - Afr Amer 63 mL/min (>60); Globulin 3.5 g/dL (2.2-4.2); Glucose 135 mg/dL (74-106); Potassium 3.9 mmol/L (3.5-5.1); Protein, Total 7.4 g/dL (6.4-8.2); Sodium Level 139 mmol/L (136-145); Uric Acid 5.7 mg/dL (3.5-7.2)
[2023-12-02 19:50] LABS: Vitamin D,25 Hydroxy 28.2 ng/mL
== END | disposition home or self-care (01) ==
LOC: POLAB3 15:05
PROVIDERS: PCP Family Medicine Geriatric Medicine; Visit Provider Family Medicine Geriatric Medicine
DX: E29.1 Testicular hypofunction (principal); E11.65 Type 2 diabetes mellitus with hyperglycemia; I10 Essential (primary) hypertension; M10.9 Gout, unspecified; E55.9 Vitamin D deficiency, unspecified
CPT/HCPCS: 36415; 80053; 82306; 84403; 84443; 84550; 85025

== ENCOUNTER → 2023-12-04 | Outpatient (CLI) | payer MEDICARE, OTHER, SELFPAY ==
[2023-12-04 14:22] LABS: 24 Hour Urine Protein 152.9 mg/24HR (<150 MG/24HR); 24HR. UA Prot. Total Volume 1100 mL; 24HR. Urine Creatinine 1.39 g/24 HR (0.90-2.10); Urine Protein (24 Hour) 13.9 mg/dL (<11.9)
== END | disposition home or self-care (01) ==
LOC: POLAB3 09:44
PROVIDERS: PCP Family Medicine Geriatric Medicine; Visit Provider Family Medicine Geriatric Medicine
DX: R80.9 Proteinuria, unspecified (principal)
CPT/HCPCS: 81050; 82570; 84156

== ENCOUNTER 2023-12-06 08:42 | Emergency (ER) | payer MEDICARE, OTHER, SELFPAY ==
[2023-12-06 08:44] VITALS: BP 136/74; PULSE 100; RESP 16; TEMP 36.7; O2SAT 99; BMI 29.2
--- NOTE | 2023-12-06 09:23 | CT_ITS ---
STUDY: CT BRAIN WITHOUT CONTRAST REASON FOR EXAM: Male, 87 years old. Right frontal headache RADIATION DOSAGE (If Supplied By Facility): CTDIvol = ( 44.99 ) mGy, DLP = ( 829.85 ) mGycm TECHNIQUE: Transaxial CT imaging of the brain was performed without administration of intravenous contrast material. Individualized dose optimization techniques were used for this CT. COMPARISON: Comparison is made with prior study of April 10, 2021. FINDINGS: Normal soft tissue structures. Normal calvarium. There is mild cerebral atrophy with widening of the extra-axial spaces and ventricular dilatation. There are areas of decreased attenuation within the white matter tracts of the supratentorial brain, consistent with microvascular disease changes. Normal basal ganglia and thalami. Normal brainstem. Normal cerebellum. There is no intracranial hemorrhage. There are no findings of an acute ischemic infarction. Atherosclerotic plaque formation of the cavernous portions of the internal carotid arteries bilaterally. Normal visualized paranasal sinuses. CT/Brain/Head without Contrast IMPRESSION: Chronic involutional changes of the brain. Electronically Signed: Johnny Hutchinson MD at 9:48 EDT ,
--- NOTE | 2023-12-06 09:23 | VDLE_ITS ---
Reason For Study: Right leg swelling RIGHT LEFT GSV is normal. CFV is compressible, spontaneous, phasic, EIV is compressible. competent, and demonstrates normal Acute deep vein thrombosis is noted in the augmentation. CFV, FV, PopV, T/P Trunk, PTV, PeroV, GastrocV and SoleusV. It is dilated and NONCOMPRESSIBLE. Procedure This is a venous duplex using B-mode, color flow and spectral Doppler. Exam performed portable in ED. A preliminary report was called and/or faxed to Dr. Epstein. VL/Venous Duplex US, Unilateral Interpretation Summary Acute deep vein thrombosis is noted in the right common femoral vein, femoral v ein, popliteal vein, tibioperoneal trunk vein, posterior tibial vein, peroneal vein, gastrocnemius v ein, soleus vein. Ordering Physician: Aleksandar Epstein Referring Physician: Glenn Mon Chi Performed By: Marielena Osorio RVT
--- NOTE | 2023-12-06 09:23 | EX.ED.DYSGE1 ---
HPI History of Present Illness Chief Complaint: Edema Informant: patient and spouse/S.O. Narrative Narrative: 87-year-old male presenting to the emergency room with right leg swelling. Patient states for about a month when he gets up in the morning he stretches and will occasionally get a charley horse in the right calf. Over about the past 4 days he has had swelling of the left calf and is now more uncomfortable due to the swelling. No prior history of DVT PE or known clotting disorders. He denies any DVT risk factors. States he just saw his primary care doctor on Saturday had blood work done. He states that they found protein in his urine and he turned in a 24-hour urine collection. He notes that he has a history of a partial thyroidectomy is on levothyroxine he also takes losartan and probenecid. He denies any known trauma to the leg. He denies any symptoms of the left leg. He also notes that he has been having intermittent headaches in the left frontal region. 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 But the headaches predate that diagnosis. He states that he has a pending MRI of the brain. He notes that this morning after being up for a while he went and sat down and had a numbness develop over his fingers and right hand that was brief and resolved. He denies any other arm symptoms. It did not extend up onto the wrist elbow or shoulder region. No speech or vision changes recently. [facility] Medical History Postoperative primary hypothyroidism LBBB (left bundle branch block) Thyroid nodule Diabetes Male hypogonadism Hyperthyroidism Pure hypercholesterolemia Essential hypertension History of obstructive sleep apnea History of BPH History of gout Home Medications ?Medication ?Instructions ?Recorded ?Last Taken ?Type multivitamin with minerals 1 ea PO DAILY SUPPLEMENT 03/17/18 Unknown History probenecid 500 mg tablet 500 mg PO DAILY GOUT 05/11/19 Unknown History levothyroxine 50 mcg tablet 50 mcg PO .daily, 2 on saturday #30 10/27/21 Unknown Rx tabs losartan 50 mg tablet 25 mg PO BID BP 90 days #90 tabs 04/12/23 Unknown History turmeric 400 mg capsule 400 mg PO DAILY PRN 04/12/23 Unknown History apixaban 5 mg (74 tabs) tablets in See Rx Instructions .Route 10/04/24 Unknown Rx a dose pack (Eliquis DVT-PE Treat .COMPLEX #74 tabs 30D Start) Allergy/AdvReac Type Severity Reaction Status Date / Time No Known Allergies Allergy Verified 12/06/23 08:49 Family History Mother Hypertension Arthritis Dementia Diabetes Surgical History History of partial thyroidectomy History of left hip replacement (04/02/18) History of hand surgery (~03/2016) History of appendectomy (~1948) History of tonsillectomy Social History Smoking Status: Never smoker Electronic Cigarette Use: not used second hand exposure: No alcohol intake: current alcohol intake frequency: a few times a week substance use type: does not use caffeine: Yes Type: coffee Number of servings: 4 ROS ROS ED Constitutional Constitutional ED: Denies chills, fever(s) or weight loss Eyes Eyes: Denies change in vision or diplopia ENT ENT ED: Denies ear pain, rhinorrhea or sore throat Cardiovascular Cardiovascular: Denies chest pain, orthopnea, palpitations or racing heartbeat Respiratory/Chest Respiratory/Chest: Denies cough, dyspnea or orthopnea Gastrointestinal Gastrointestinal: Denies abdominal pain, diarrhea, nausea or vomiting Genitourinary Genitourinary ED: Denies dysuria, hematuria or urinary frequency Musculoskeletal Musculoskeletal: Reports other Details: See history of present illness ; Denies arthralgias or myalgias Integumentary Denies abscess or rash Neurologic Neurologic: Reports headache(s) and paresthesias; Denies weakness Psychiatric Psychiatric: Denies anxiety, depression, suicidal ideation or suicidal thoughts Endocrine Endocrinology: Denies polydipsia, polyphagia or polyuria Allergic/Immunologic Allergic/Immunologic ED: Denies mouth swelling, tongue swelling or urticaria EXAM Physical Exam Const Vital Signs: 12/06/23 08:44 12/06/23 08:53 12/06/23 10:42 Temperature 98.1 F 98 F Temperature Source Oral Pulse Rate 100 94 Respiratory Rate 16 16 Respiratory Effort Normal Non-Labored Respiratory Pattern Normal Blood Pressure 136/74 H 128/77 H Blood Pressure Mean 94 94 Pulse Ox 99 100 Oxygen Delivery Method Room Air Positive well nourished and well developed General Appearance ED: well developed and NAD HEENT Reports normocephalic, head/scalp atraumatic and moist mucous membranes Eyes PERRL and EOMs intact bilaterally Neck no lymphadenopathy, supple and no JVD Resp normal respiratory effort and clear to auscultation bilaterally Cardio regular rate, regular rhythm and no murmurs GI normal to inspection, nondistended, normoactive bowel sounds and non-tender Palpation: soft Back/Spine no CVA tenderness and normal ROM Extremity Extremity Narrative: Left calf and foot are swollen. Mild tenderness to palpation of the calf. I do not appreciate palpable cords or popliteal mass. Skin appears of normal color. Thigh appears normal. General Extremety ED: Negative for edema General Extremity: Negative for edema Neuro oriented x3, CN's II-XII intact bilaterally and no sensory deficits noted Sensorium / Orientation: alert Sensory Exam: No sensory level loss detected Motor Exam: strength 5/5 throughout Psych mental status grossly normal Mood & Affect: Negative for depressed or tearful Skin no rashes or lesions noted and no wounds MDM MDM MDM Narrative Medical decision making narrative: Differential diagnosis includes but not limited to DVT, lymphedema, Richey's cyst rupture peripheral vascular disease, kidney disease, intracranial mass stroke Patient is neurologically intact at this time. Duplex ultrasound demonstrates DVT of the right leg involving common femoral distally. CT of the brain demonstrated no acute findings. Case was discussed with his PCP Dr. Mon. He will be started on Eliquis. He will follow-up in the office next week. Patient is comfortable with this plan. History & Record Review Discussion w/independent historian: Patient and Significant other Additional record(s) reviewed:: Prior outpatient record and Prior labs Lab Data Attestation: I reviewed the patient's lab results. Radiography Diagnostic Testing: Clinical Impression(s) from Imaging Studies Brain CT 12/06/23 09:23 IMPRESSION: Chronic involutional changes of the brain. Electronically Signed: Johnny Hutchinson MD at 9:48 EDT , Management Discussion w/another healthcare provider: PCP (Dr. Mon) Discharge Plan Triage Chief Complaint: Edema ED Provider: Aleksandar Epstein Dx/Rx/DC Orders Clinical Impression: DVT of lower extremity (deep venous thrombosis), Headache Instructions: DVT Dc Prescriptions: New Sky DVT-PE Treat 30D Start 5 mg (74 tabs) Tablets,Dose Pack See Rx Instructions .ROUTE .COMPLEX Qty: 74 0RF Rx Instructions: 10 mg p.o. twice daily x 7 days then 5 mg p.o. twice daily after that No Action turmeric 400 mg capsule 400 mg PO DAILY PRN losartan 50 mg tablet 25 mg PO BID 90 Days Qty: 90 Patient Comments: TAKE 1 TABLET BY MOUTH EVERY DAY probenecid 500 mg tablet 500 mg PO DAILY multivitamin with minerals 1 EACH tablet 1 ea PO DAILY levothyroxine 50 mcg tablet 50 mcg PO .daily, 2 on saturday Qty: 30 5RF Primary Care Provider: Glenn Mon Chi Referrals: Glenn Mon Chi, MD [Primary Care Provider] - As soon as possible Print Language: Macedonian Disposition Disposition: Home, Self Care Discharge Date/Time: 12/06/23 10:43
[2023-12-06 10:42] VITALS: BP 128/77; PULSE 94; RESP 16; TEMP 36.6; O2SAT 100
== END 2023-12-06 10:43 | disposition home or self-care (01) ==
LOC: ED 10:35
PROVIDERS: Emergency Provider Emergency Medicine; PCP Family Medicine Geriatric Medicine; Visit Provider Emergency Medicine
DX: I82.401 Acute embolism and thrombosis of unspecified deep veins of right lower extremity (principal); E11.9 Type 2 diabetes mellitus without complications
CPT/HCPCS: 70450; 93971; 99282

== ENCOUNTER → 2023-12-09 | Outpatient (CLI) | payer MEDICARE, OTHER, SELFPAY ==
--- NOTE | 2023-12-09 11:03 | CT_ITS ---
STUDY: CT CHEST, ABDOMEN T PELVIS WITH CONTRAST REASON FOR EXAM: Male, 87 years old. ABD PAIN, hypoxia, DVT RADIATION DOSAGE (If Supplied By Facility): CTDIvol = ( 17.53 ) mGy, DLP = ( 1854.30 ) mGycm TECHNIQUE: Transaxial imaging was performed following intravenous administration of Oral and amp; IV Gastrografin and amp; 100mL Isovue-300. Multiplanar coronal and sagittal images were reformatted. Individualized dose optimization techniques were used for this CT. COMPARISON: No relevant priors. FINDINGS: CHEST Minimal increased markings at the lung bases suggest some mild linear atelectasis. There is no demonstrated pleural abnormality. There are calcifications of the coronary arteries. Normal mediastinum. Normal hilar regions. There is evidence of a thrombus within the distal portion of the left and right main pulmonary artery is more prominent on the left side. This extends into the left interlobar pulmonary artery as well as central branches of the left upper lobe and right upper lobe pulmonary arterial branches. Normal aorta arch and descending thoracic aorta. There are multi-level degenerative changes of the thoracic spine. ABDOMEN There is decreased attenuation of the liver consistent with steatosis. There are multiple gallstones. Normal spleen. There is diffuse atrophy of the pancreas. Normal bilateral adrenal glands. Normal right kidney. Normal left kidney. There is a small hiatal hernia. Normal small intestine. There are multiple colonic diverticula consistent with diverticulosis. The appendix is visualized and appears normal. There is diffuse atherosclerotic calcification of the abdominal aorta and its major visceral branches, without a demonstrated aneurysm. Normal inferior vena cava. Normal retroperitoneum. Normal abdominal wall. There are diffuse degenerative changes of the visualized lumbar spine. Status post left hip replacement. PELVIS Distended urinary bladder. There is no pelvic fluid. There is no pelvic lymphadenopathy or mass lesion. There is diffuse atherosclerotic calcification of the pelvic arteries. CT/CT Chest, Abd, Pel w/Contrast IMPRESSION: Bilateral pulmonary emboli as described. The ordering physician was notified. Electronically Signed: Jhonny Hutchinson MD at 14:07 EDT ,
== END | disposition home or self-care (01) ==
PROVIDERS: PCP Family Medicine Geriatric Medicine; Referring Provider Family Medicine Geriatric Medicine; Visit Provider Family Medicine Geriatric Medicine
DX: R10.9 Unspecified abdominal pain (principal)
CPT/HCPCS: 71260; 74177; Q9967; A4216

== ENCOUNTER → 2023-12-13 | Outpatient (CLI) | payer MEDICARE, OTHER, SELFPAY ==
--- NOTE | 2023-12-13 09:55 | ECHOCS_ITS ---
Reason For Study: SHORTNESS OF BREATH Procedure This was a 2D Doppler, Color Flow transthoracic echocardiogram. The study was technically difficult. Contrast injection was performed. Exam performed in department. Left Ventricle Moderate concentric left ventricular hypertrophy. Severe global left ventricular systolic dysfunction. The left ventricular ejection fraction is 25 %. Stage 1 diastolic dysfunction. Right Ventricle Normal right ventricle. Atria The left and right atria are normal. Mitral Valve Trivial mitral valve insufficiency. Tricuspid Valve Trivial tricuspid valve insufficiency. Normal pulmonary artery pressure. Aortic Valve Aortic sclerosis, no stenosis. Trivial aortic valve insufficiency. Pulmonic Valve The pulmonic valve is not well visualized. Great Vessels Normal sized aortic root. Pericardium/Pleural No pericardial effusion. Medication 22 gauge I.V. with prn adaptor inserted into left arm. Diluted definity 2ml given slow IV push to enhance endocardial definition. MMode/2D Measurements & Calculations LVIDd: 4.8 cm IVSd: 1.6 cm LVOT diam: 2.2 cm LVIDs: 3.3 cm LVPWd: 1.2 cm RVDd: 3.5 cm FS: 31.2 % LVOT area: 4.0 cm2 asc Aorta Diam: 3.6 cm LAV(MOD-bp): 45.3 ml LVAd ap4: 42.3 cm2 LAV(MOD-bp) Indexed: 21.5 ml/m2 LVLd ap4: 9.4 cm LAV(MOD-sp2): 53.3 ml EDV(MOD-sp4): 154.6 ml LAV(MOD-sp4): 38.3 ml EDV(sp4-el): 162.0 ml LVAs ap4: 35.8 cm2 LVLs ap4: 8.9 cm ESV(MOD-sp4): 117.7 ml ESV(sp4-el): 122.6 ml EF(MOD-sp4): 23.9 % EF(sp4-el): 24.3 % LVAd ap2: 40.5 cm2 SV(MOD-sp4): 37.0 ml SV(MOD-sp2): 33.8 ml LVLd ap2: 9.8 cm EDV(MOD-sp2): 139.0 ml EDV(sp2-el): 142.0 ml LVAs ap2: 33.4 cm2 LVLs ap2: 8.8 cm ESV(MOD-sp2): 105.1 ml ESV(sp2-el): 107.1 ml EF(MOD-sp2): 24.3 % SV(sp4-el): 39.4 ml Ao sinus diam: 3.[address] Junction: 2.9 cm LA dimension(2D): 3.8 cm LA A4 area: 15.1 cm2 RA A4 area: 8.9 cm2 TAPSE: 1.6 cm Time Measurements MV dec time: 0.11 sec Doppler Measurements & Calculations MV E max brennen: 53.7 cm/sec Lat Peak E' Brennen: 5.2 cm/sec MV dec slope: 489.6 cm/sec2 MV A max brennen: 102.9 cm/sec E/E' lat: 10.4 MV E/A: 0.52 Ao V2 max: 162.3 cm/sec LV V1 max: 76.9 cm/sec SV(LVOT): 53.4 ml Ao max P.5 mmHg LV V1 max P.4 mmHg Ao V2 mean: 117.4 cm/sec LV V1 mean P.4 mmHg Ao mean P.0 mmHg LV V1 mean: 56.1 cm/sec Ao V2 VTI: 29.5 cm LV V1 VTI: 13.4 cm AV (velocity ratio): 0.46 LUIS ALFREDO(I,D): 1.8 cm2 LUIS ALFREDO(V,D): 1.9 cm2 PA V2 max: 97.2 cm/sec TR max brennen: 264.9 cm/sec PA max PG (full): 2.3 mmHg TR max P.1 mmHg ECHO/Echo Complete W/ Contrast Interpretation Summary The study was technically difficult. Moderate concentric left ventricular hypertrophy. Severe global left ventricular systolic dysfunction. The left ventricular ejection fraction is 25 %. Stage 1 diastolic dysfunction. Aortic sclerosis, no stenosis. Ordering Physician: Glenn Mon Chi Referring Physician: Glenn Mon Chi Performed By: Trisha Sanchez RDCS
== END | disposition home or self-care (01) ==
LOC: CVS 09:48
PROVIDERS: PCP Family Medicine Geriatric Medicine; Referring Provider Family Medicine Geriatric Medicine; Visit Provider Family Medicine Geriatric Medicine
DX: R06.02 Shortness of breath (principal); G31.84 Mild cognitive impairment of uncertain or unknown etiology
CPT/HCPCS: 93306; Q9957; C8929

== ENCOUNTER → 2023-12-18 | Outpatient (CLI) | payer MEDICARE, OTHER, SELFPAY | END | disposition home or self-care (01) | PROVIDERS: PCP Family Medicine Geriatric Medicine; Referring Provider Family Medicine Geriatric Medicine; Visit Provider Family Medicine Geriatric Medicine | DX: R06.02 Shortness of breath (principal); G31.84 Mild cognitive impairment of uncertain or unknown etiology | CPT/HCPCS: 94060 ==

== ENCOUNTER → 2023-12-23 | Outpatient (CLI) | payer MEDICARE, OTHER, SELFPAY ==
[2023-12-23 16:27] LABS: Absolute Lymphocyte Count 1.42 X10^3/uL (0.83-4.51); Absolute Neutrophil Count 6.5 X10^3/uL (2.0-7.7); Basophil# 0.04 X10^3/uL; Basophil% 0.5 % (0-1); Eosinophil# 0.23 X10^3/uL; Eosinophils% 2.6 % (0-5); Hematocrit 41.5 % (40-54); Hemoglobin 13.9 g/dL (13.0-16.5); Lymphocyte # 1.42 X10^3/ul (0.83-4.51); Lymphocyte % 16.2 % (19-41); Mean Corp Hgb Conc 33.5 g/dL (32-36); Mean Corpuscular Hgb 30.8 pg (27.0-32.0); Mean Platelet Vol. 9.8 fl (6.2-12.0); Monocyte# 0.44 X10^3/uL; NRBC Flagged by Analyzer 0 % (0-5); Neutrophil # 6.54 X10^3/uL (2.7-7.7); Neutrophil % 74.7 % (47-70); Platelet Count 212 K/mm3 (150-450); RBC Distribution Width CV 13.3 % (11.6-14.6); Red Blood Count 4.51 M/mm3 (4.6-6.2); White Blood Count 8.8 K/mm3 (4.4-11.0)
[2023-12-23 17:33] LABS: BNP,B-Type NATRIURETIC PEPTIDE 53.8 pg/mL (0-100)
[2023-12-23 17:35] LABS: ALB/GLOB Ratio 1.2 RATIO (0.9-2.4); AST(SGOT) 13 U/L (15-37); Alanine Aminotransfer ALT/SGPT 20 U/L (16-61); Albumin, Serum 3.5 g/dL (3.2-5.0); Alkaline Phosphatase 77 U/L (45-117); Anion Gap 8 (5-15); BUN 18 mg/dL (7-18); BUN/Creat Ratio 14.2 RATIO (10-20); CPK Total, Creatine Kinase 79 U/L (39-308); Chloride 108 mmol/L (98-107); Creatinine, Serum 1.27 mg/dL (0.70-1.30); EST Glomerular Filtration Rate 57 mL/min (>60); Est Glom Filt Rate - Afr Amer 69 mL/min (>60); Globulin 2.9 g/dL (2.2-4.2); Glucose 125 mg/dL (74-106); Potassium 3.7 mmol/L (3.5-5.1); Protein, Total 6.4 g/dL (6.4-8.2); Sodium Level 140 mmol/L (136-145); Troponin-I HS 20 pg/mL (3.0-78.0)
[2023-12-25 08:13] LABS: Myoglobin, Serum 67 ng/mL (28-72)
== END | disposition home or self-care (01) ==
PROVIDERS: PCP Family Medicine Geriatric Medicine; Visit Provider Family Medicine Geriatric Medicine
DX: I10 Essential (primary) hypertension (principal); R07.9 Chest pain, unspecified
CPT/HCPCS: 36415; 80053; 82550; 83874; 83880; 84484; 85025

== ENCOUNTER → 2024-01-01 | Outpatient (CLI) | payer MEDICARE, OTHER, SELFPAY ==
--- NOTE | 2024-01-01 11:02 | MRI_ITS ---
EXAM: MR HEAD WITHOUT INTRAVENOUS CONTRAST CLINICAL INDICATION: Mild cognitive impairment. Frontal headache. TECHNIQUE: Multiplanar and multisequence MR images of the brain were obtained without intravenous contrast. COMPARISON: CT head without contrast 12/06/2023. CTA head and neck with contrast 04/10/2021. FINDINGS: BRAIN AND EXTRA-AXIAL SPACES: No diffusion restriction to suspect acute or subacute ischemic infarct throughout the brain parenchyma. Periventricular white matter and subcortical white matter T2 FLAIR hyperintensity foci in both cerebral hemispheres are chronic white matter ischemic changes. No midline shift and no mass effects. No recent or remote intracranial bleeding. Normal ventricles and cisterns for age. No communicating or noncommunicating hydrocephalus. Posterior fossa structures are unremarkable. SELLA: Unremarkable. Normal sella turcica, pituitary gland, infundibular stalk, optic chiasm and hypothalamus. AUDITORY SYSTEM: Unremarkable. The internal auditory canals are patent. BONES/JOINTS: Unremarkable. No discrete lytic or blastic abnormalities. SINUSES: Unremarkable as visualized. Clear. MASTOID AIR CELLS: Unremarkable as visualized. Clear. ORBITS: Unremarkable as visualized. Both globes, extraocular muscles, optic nerves and retrobulbar fat appear unremarkable. VASCULATURE: Unremarkable as visualized. Normal flow voids in the major intracranial circulation. MRI/Brain without Contrast IMPRESSION: 1. No MRI evidence of acute or subacute ischemic infarct or acute intracranial abnormality. 2. Chronic periventricular and subcortical white matter ischemic changes in both cerebral hemispheres. Electronically Signed: Eric Collazo MD at 13:54 EDT ,
== END | disposition home or self-care (01) ==
LOC: MRI 10:59
PROVIDERS: PCP Family Medicine Geriatric Medicine; Referring Provider Family Medicine Geriatric Medicine; Visit Provider Family Medicine Geriatric Medicine
DX: R06.02 Shortness of breath (principal); G31.84 Mild cognitive impairment of uncertain or unknown etiology
CPT/HCPCS: 70551

== ENCOUNTER → 2024-01-06 | Outpatient (CLI) | payer MEDICARE, OTHER, SELFPAY ==
--- NOTE | 2024-01-06 09:23 | STRESSREP ---
Stress Test Report Date: 01/06/2024 Procedure: Pharmacologic stress nuclear imaging study Indications: Abnormal ECG Consent: Per the patient Procedure: The patient underwent pharmacologic (Regadenoson 0.4mg ) evaluation with a peak heart rate of 93 beats per minute (69%predicted maximal heart rate) and a peak blood pressure of 144/90 mmHg. The baseline ECG demonstrated sinus rhythm with left bundle branch block. The peak pharmacologic ECG demonstrated no diagnostic ischemic changes. There were no cardiac dysrhythmias pretest, during pharmacologic infusion, or recovery. There was no complaint of chest discomfort during pharmacologic infusion or recovery. The patient was injected with 10.3 millicuries of technetium 99m Cardiolite and subsequently rest SPECT Cardiolite nuclear imaging was obtained in the horizontal long, vertical long, and short axis views. The patient underwent pharmacologic (Regadenoson) evaluation. The patient was injected with 32.8 millicuries of technetium 99m Cardiolite and subsequently stress SPECT Cardiolite nuclear imaging was obtained in the horizontal long, vertical long, and short axis views. A gated Cardiolite study at peak stress was obtained. The examination was stopped secondary to completion of protocol. Rest and stress SPECT Cardiolite nuclear imaging status post realignment, normalization, and attenuation correction demonstrate decreased perfusion of the inferior wall which remains fixed with no significant reversible component. The gated images show inferior hypokinesis along with generalized hypokinesis. The reported LVEF is 36%. Impression: 1. Pharmacologic (Regadenoson) evaluation 2. Peak pharmacologic ECG with no diagnostic ischemic changes secondary to baseline abnormality. 3. There were no cardiac dysrhythmias pretest, during pharmacologic infusion, or recovery. 5. Decreased perfusion of the inferior wall which remains fixed. Consider previous nontransmural infarct with no reversible component. 6. The gated Cardiolite study reports an LVEF of 36%. This note was generated with [employer] software. It may contain incorrect words, spelling, and punctuation that were not noted in checking the note before signing.
== END | disposition home or self-care (01) ==
PROVIDERS: PCP Family Medicine Geriatric Medicine; Referring Provider Family Medicine Geriatric Medicine; Visit Provider Family Medicine Geriatric Medicine
DX: R07.9 Chest pain, unspecified (principal)
CPT/HCPCS: 78452; 93017; A9500; A4216; J2785

== ENCOUNTER 2024-02-02 11:00 | Emergency (ER) | payer MEDICARE, OTHER, SELFPAY ==
[2024-02-02 11:00] VITALS: BP 180/79; PULSE 57; RESP 17; TEMP 36.3; O2SAT 99; BMI 29.9
--- NOTE | 2024-02-02 11:10 | RAD_ITS ---
EXAM: XR LEFT SHOULDER COMPLETE, 2 OR MORE VIEWS CLINICAL INDICATION: dislocation TECHNIQUE: Two or more views of the left shoulder. COMPARISON: No relevant prior studies available. FINDINGS: BONES/JOINTS: Unremarkable. No acute fracture. No subluxation. Normal alignment. Preservation of the joint space. No sclerotic or destructive changes observed. SOFT TISSUES: Unremarkable. No soft tissue swelling or gas. No radiopaque foreign body. RAD/Shoulder min 2 Views IMPRESSION: Negative left shoulder x-rays. Electronically Signed: Eric Collazo MD at 11:42 EST ,
--- NOTE | 2024-02-02 11:16 | EX.ED.UPPERE ---
HPI <JEY Hedrick - Last Filed: 02/02/24 12:57> History of Present Illness Chief Complaint: Dislocation Narrative Narrative: Patient presenting today with pain in his left shoulder that started this morning. He bent over to put on his socks when he felt immediate pain in his left shoulder. It felt like the, ball came out of the socket. He is right-handed. He denies any direct trauma to his shoulder. PFSH <JEY Hedrick - Last Filed: 02/02/24 12:57> [facility] Medical History Postoperative primary hypothyroidism LBBB (left bundle branch block) Thyroid nodule Diabetes Male hypogonadism Hyperthyroidism Pure hypercholesterolemia Essential hypertension History of obstructive sleep apnea History of BPH History of gout Home Medications ?Medication ?Instructions ?Recorded ?Last Taken ?Type multivitamin with minerals 1 ea PO DAILY SUPPLEMENT 03/17/18 Unknown History probenecid 500 mg tablet 500 mg PO DAILY GOUT 05/11/19 Unknown History apixaban 5 mg (74 tabs) tablets in See Rx Instructions .Route 12/06/23 Unknown Rx a dose pack (EliIndependent IP DVT-PE Treat .COMPLEX #74 tabs 30D Start) dapagliflozin propanediol 10 mg 10 mg PO QDAY #30 tabs 01/14/24 Unknown Rx tablet (Farxiga) levothyroxine 75 mcg capsule 75 mcg PO QDAY 01/14/24 Unknown History losartan 25 mg tablet 25 mg PO QDAY 01/14/24 Unknown History metoprolol succinate 25 mg 25 mg PO QDAY #90 tabs 01/14/24 Unknown Rx tablet,extended release 24 hr hydrocodone-acetaminophen 5-325mg 1 tab PO Q4H PRN PRN Pain 3 days 02/02/24 Unknown Rx 5mg-325mg #10 TABLETS Allergy/AdvReac Type Severity Reaction Status Date / Time scopolamine AdvReac Intermediate altered Verified 01/14/24 14:37 mental status Family History Mother Hypertension Arthritis Dementia Diabetes Surgical History History of partial thyroidectomy History of left hip replacement (04/02/18) History of hand surgery (~03/2016) History of appendectomy (~1949) History of tonsillectomy Social History Smoking Status: Never smoker Electronic Cigarette Use: not used second hand exposure: No alcohol intake: current alcohol intake frequency: a few times a week substance use type: does not use caffeine: Yes Type: coffee Number of servings: 4 ROS <JEY Hedrick - Last Filed: 02/02/24 12:57> ROS ED Constitutional Constitutional ED: Denies chills or fever(s) Cardiovascular Cardiovascular: Denies chest pain Respiratory/Chest Respiratory/Chest: Denies dyspnea Musculoskeletal Musculoskeletal: Reports arthralgias Integumentary Denies Abrasions or rash Neurologic Neurologic: Denies paresthesias or weakness EXAM <JEY Hedrick - Last Filed: 02/02/24 12:57> Physical Exam Const Vital Signs: 02/02/24 11:00 Temperature 97.4 F L Temperature Source Temporal Pulse Rate 57 L Respiratory Rate 17 Blood Pressure 180/79 H Blood Pressure Mean 112 Pulse Ox 99 Oxygen Delivery Method Room Air Positive well nourished, well developed and no apparent distress General Appearance ED: well developed HEENT Reports normocephalic and head/scalp atraumatic Mouth ED: Yes moist mucous membranes normal Eyes PERRL and EOMs intact bilaterally Neck full ROM and supple Chest Wall inspection of chest normal Resp normal respiratory effort and clear to auscultation bilaterally Cardio regular rate and regular rhythm GI soft to palpation, non-tender, non-distended and no masses Back/Spine normal ROM and normal to inspection Extremity normal to inspection Extremity Narrative: No pain to palpation to the left shoulder, pain to the proximal aspect of the left bicep, no obvious deformity, he is able to flex and extend at the elbow but has pain with doing this, he is able to abduct and abduct the shoulder without pain. left radial pulse 2+, good cap refill, sensation intact. Neuro oriented x3, CN's II-XII intact bilaterally, moves all extremities, no focal motor deficits and no sensory deficits noted Sensorium / Orientation: awake and alert Psych mental status grossly normal and thought process normal Skin no rashes or lesions noted and no wounds MDM <JEY Hedrick - Last Filed: 02/02/24 12:57> MDM MDM Narrative Medical decision making narrative: Patient presenting today with left shoulder pain that started today when he bent over to put his socks on. He has pain to the proximal aspect of the left bicep. No pain to the shoulder, x-ray of the left shoulder was obtained and is negative for fracture or dislocation. He does not have any Smith deformity of the left bicep, no obvious bicep tendon tear. He likely did strain or partially tear the biceps tendon. He was given a few [place] for home. RICE instructions discussed, I recommended he follow-up with his PCP. He will be discharged home in stable condition. I have personally performed a face to face assessment of the patient and have reviewed the MICHELLE Note. I performed a substantive portion of the visit including all aspects of the following. My royal findings include: 88-year-old male was pulling up his sock this morning when he felt pain in his left upper bicep. Denies any fall injury or trauma. He is right-hand dominant. No prior history of left shoulder surgery. Denies any other complaints. Exam is [well-appearing 88-year-old male. Vital signs stable afebrile. H EENT exam unremarkable. Lungs clear. Heart regular rhythm no murmur. Chest wall ribs nontender. Abdomen soft nontender. Right upper and both lower extremities are nontender normal range of motion no deformity. He has tenderness at the proximal aspect of his left lateral bicep. There is no obvious deformity or deficit. No obvious bicep tendon tear. There is no Smith muscle. There is no bruising. He has normal flexion extension of his forearm and wrist. Normal radial pulse. 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 The shoulder itself is nontender with no deformity. There is no signs of any type of infection or dislocation.] Medical Decision Making [x-ray left shoulder shows chronic changes. No fracture. No dislocation. Exam is consistent with a biceps strain versus partial tear of the tendon.] Other additions or changes: [None] Radiography X-Ray: Read by ED Physician <Dr. Markie Santiago MD - Last Filed: 02/02/24 11:34> [facility] Narrative Medical decision making narrative: I have personally performed a face to face assessment of the patient and have reviewed the MICHELLE Note. I performed a substantive portion of the visit including all aspects of the following. My royal findings include: 88-year-old male was pulling up his sock this morning when he felt pain in his left upper bicep. Denies any fall injury or trauma. He is right-hand dominant. No prior history of left shoulder surgery. Denies any other complaints. Exam is [well-appearing 88-year-old male. Vital signs stable afebrile. H EENT exam unremarkable. Lungs clear. Heart regular rhythm no murmur. Chest wall ribs nontender. Abdomen soft nontender. Right upper and both lower extremities are nontender normal range of motion no deformity. He has tenderness at the proximal aspect of his left lateral bicep. There is no obvious deformity or deficit. No obvious bicep tendon tear. There is no Smith muscle. There is no bruising. He has normal flexion extension of his forearm and wrist. Normal radial pulse. 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 The shoulder itself is nontender with no deformity. There is no signs of any type of infection or dislocation.] Medical Decision Making [x-ray left shoulder shows chronic changes. No fracture. No dislocation. Exam is consistent with a biceps strain versus partial tear of the tendon.] Other additions or changes: [None] Radiography Diagnostic Testing: Left shoulder x-ray, 4 views, interpreted by myself shows chronic changes. No fracture or dislocation. Discharge Plan Triage Chief Complaint: Dislocation ED Midlevel Provider: Radha Colbert ED Provider: Markie Santiago Dx/Rx/DC Orders Clinical Impression: Biceps strain, Biceps muscle strain Instructions: ED Muscle Strain, Extremity Prescriptions: New hydrocodone-acetaminophen 5-325 mg tablet 1 tab PO Q4H PRN PRN (Reason: Pain) 3 Days Qty: 10 0RF No Action levothyroxine 75 mcg capsule 75 mcg PO QDAY losartan 25 mg tablet 25 mg PO QDAY metoprolol succinate 25 mg tablet extended release 24 hr 25 mg PO QDAY Qty: 90 3RF dapagliflozin propanediol [Farxiga] 10 mg tablet 10 mg PO QDAY Qty: 30 6RF probenecid 500 mg tablet 500 mg PO DAILY multivitamin with minerals 1 EACH tablet 1 ea PO DAILY Eliquis DVT-PE Treat 30D Start 5 mg (74 tabs) Tablets,Dose Pack See Rx Instructions .ROUTE .COMPLEX Qty: 74 0RF Rx Instructions: 10 mg p.o. twice daily x 7 days then 5 mg p.o. twice daily after that Primary Care Provider: Glenn Mon Chi Referrals: Glenn Mon Chi, MD [Primary Care Provider] - 1-2 Weeks Activity Restrictions/Additional Instructions: You have either a strained bicep muscle or partial tear of the tendon. X-ray look good. No dislocation. No fracture. Ice to your upper arm. Tylenol for pain. Beaumont for more severe pain. Follow-up with your doctor as needed. Typically they do not do surgery on this. Print Language: Citizen Of [place] Disposition Disposition: Home, Self Care Discharge Date/Time: 02/02/24 11:42
[2024-02-02] MEDS: HYDROcodone Bitartrate/Apap 5/325 Tablet PO (11:30)
[2024-02-02 11:34] VITALS: BP 169/78; PULSE 59; RESP 17; TEMP 36.3; O2SAT 99
== END 2024-02-02 11:42 | disposition home or self-care (01) ==
PROVIDERS: Emergency Provider Emergency Medicine; PCP Family Medicine Geriatric Medicine; Visit Provider Emergency Medicine
DX: S46.212A Strain of muscle, fascia and tendon of other parts of biceps, left arm, initial encounter (principal); E11.9 Type 2 diabetes mellitus without complications; I10 Essential (primary) hypertension; E78.00 Pure hypercholesterolemia, unspecified; E03.9 Hypothyroidism, unspecified; G47.33 Obstructive sleep apnea (adult) (pediatric); Z79.01 Long term (current) use of anticoagulants; Z79.899 Other long term (current) drug therapy; X58.XXXA Exposure to other specified factors, initial encounter
CPT/HCPCS: 73030; 99282

== ENCOUNTER → 2024-02-10 | Outpatient (CLI) | payer MEDICARE, OTHER, SELFPAY ==
[2024-02-10 12:40] LABS: Absolute Lymphocyte Count 1.23 X10^3/uL (0.83-4.51); Absolute Neutrophil Count 8.2 X10^3/uL (2.0-7.7); Basophil# 0.04 X10^3/uL; Basophil% 0.4 % (0-1); Eosinophil# 0.25 X10^3/uL; Eosinophils% 2.4 % (0-5); Hematocrit 54.4 % (40-54); Hemoglobin 17.7 g/dL (13.0-16.5); Lymphocyte # 1.23 X10^3/ul (0.83-4.51); Lymphocyte % 11.9 % (19-41); Mean Corp Hgb Conc 32.5 g/dL (32-36); Mean Corpuscular Hgb 29.5 pg (27.0-32.0); Mean Corpuscular Volume 90.7 fL (80-94); Mean Platelet Vol. 10.3 fl (6.2-12.0); Monocyte# 0.49 X10^3/uL; Monocyte% 4.8 % (0-10); NRBC Flagged by Analyzer 0 % (0-5); Neutrophil # 8.24 X10^3/uL (2.7-7.7); Neutrophil % 79.9 % (47-70); Platelet Count 202 K/mm3 (150-450); RBC Distribution Width SD 43.1 fl (35.1-43.9); White Blood Count 10.3 K/mm3 (4.4-11.0)
[2024-02-10 13:21] LABS: Anion Gap 4 (5-15); BUN 13 mg/dL (7-18); BUN/Creat Ratio 10.3 RATIO (10-20); Calcium,Total 9.3 mg/dL (8.5-10.1); Chloride 108 mmol/L (98-107); Creatinine, Serum 1.26 mg/dL (0.70-1.30); EST Glomerular Filtration Rate 58 mL/min (>60); Est Glom Filt Rate - Afr Amer 70 mL/min (>60); Glucose 117 mg/dL (74-106); Potassium 4.1 mmol/L (3.5-5.1); Sodium Level 139 mmol/L (136-145)
== END | disposition home or self-care (01) ==
LOC: POLAB3 11:56
PROVIDERS: PCP Family Medicine Geriatric Medicine; Visit Provider Family Medicine Geriatric Medicine
DX: E87.6 Hypokalemia (principal); I10 Essential (primary) hypertension
CPT/HCPCS: 36415; 80048; 85025

== ENCOUNTER → 2024-02-19 | Outpatient (CLI) | payer MEDICARE, OTHER, SELFPAY ==
--- NOTE | 2024-02-19 13:00 | CT_ITS ---
STUDY: CT CHEST WITH CONTRAST REASON FOR EXAM: Male, 88 years old. LVSD limited chest over read only RADIATION DOSAGE (If Supplied By Facility): CTDIvol = ( 26.50 ) mGy, DLP = ( 1335.58 ) mGycm TECHNIQUE: Transaxial imaging was performed following intravenous administration of 26.50. Individualized dose optimization techniques were used for this CT. COMPARISON: Comparison is made with prior CT scan of the chest dated December 09, 2023. FINDINGS: CHEST Increased linear markings at the lung bases with areas of confluence suggestive of bibasilar scarring. There is no demonstrated pleural abnormality. There are calcifications of the coronary arteries. There are small lymph nodes within the mediastinum, which are normal in size and morphology most compatible with reactive lymph hyperplasia. Normal hilar regions. Normal unenhanced pulmonary arteries. There is atherosclerotic calcification of the aortic arch. There are multi-level degenerative changes of the thoracic spine. Fatty evaluation of the liver. Gallstones. CT/Limited Chest CT Cardiac Only IMPRESSION: Coronary artery calcification. Electronically Signed: Johnny Hutchinson MD at 12:57 EST ,
[2024-02-19 13:07] VITALS: BP 160/87; PULSE 97; RESP 18; O2SAT 98; BMI 30.7
[2024-02-19 13:17] VITALS: PULSE 90
[2024-02-19] MEDS: Metoprolol Tartrate 5 MG/5 ML Vial IV (13:17)
[2024-02-19] MEDS: Nitroglycerin SL (ED/IMG/CATH) 0.4 MG TABLET SL (13:34)
[2024-02-19 13:50] VITALS: BP 139/67; PULSE 68; RESP 18; O2SAT 98
--- NOTE | 2024-02-19 21:13 | CCTA.WCONT ---
CCTA w/Cont Coronary Arteries Date of Study:: 02/19/24 Coronary artery disease Coronary Calcium Scoring: High-resolution Computed Tomographic imaging of the chest was performed on [02/19/2024], with particular attention paid to the coronary arteries. Intravenous contrast agent was administered per protocol and images reconstructed and displayed. LEFT MAIN CORONARY ARTERY: This arises from the left main coronary cusp and appears to have moderate stenosis and calcification with a total Agatston score of 908 [] LEFT ANTERIOR DESCENDING CORONARY ARTERY: This arises from the left main coronary cusp. A severe calcification noted of the proximal and mid regions with moderate to moderately severe stenosis. The mid segment has mild calcification with mild distal calcification. The total Agatston score is noted to be 2516. A first prominent diagonal vessel is noted to be severely calcified proximally. [] LEFT CIRCUMFLEX CORONARY ARTERY: Nondominant vessel noted with proximal calcification as well as mid segment calcification. Moderate stenosis is noted. The coronary calcium score is 1206 [] RIGHT CORONARY ARTERY: Dominant vessel with calcification noted in the proximal and mid regions. The proximal area has moderate to severe stenosis present and then distally the vessel appears to be totally occluded. The total Agatston score is 1353. [] THORACIC AORTA: Mild calcification [] PULMONARY ARTERY: [] LEFT ATRIUM/APPENDAGE: [] MITRAL VALVE: [] AORTIC VALVE: [] LEFT VENTRICLE: [] CORONARY CALCIUM SCORE: Total Agatston score is 5984 placing the patient at greater than 90th percentile[address] angiogram demonstrating significant coronary calcification involving all 3 coronary territories with severe calcification noted in the proximal and mid left anterior descending artery and right coronary artery regions. Moderate to severe stenosis is noted in both these regions. []
== END | disposition home or self-care (01) ==
LOC: CT 12:58
PROVIDERS: PCP Family Medicine Geriatric Medicine; Referring Provider Internal Medicine Cardiovascular Disease; Visit Provider Internal Medicine Cardiovascular Disease
DX: I25.10 Atherosclerotic heart disease of native coronary artery without angina pectoris (principal); I82.409 Acute embolism and thrombosis of unspecified deep veins of unspecified lower extremity; R94.31 Abnormal electrocardiogram [ECG] [EKG]; R01.1 Cardiac murmur, unspecified; I44.7 Left bundle-branch block, unspecified; I51.89 Other ill-defined heart diseases; E78.00 Pure hypercholesterolemia, unspecified
CPT/HCPCS: 75571; 75574; 76380; Q9967

== ENCOUNTER → 2024-05-25 | Outpatient (CLI) | payer MEDICARE, OTHER, SELFPAY ==
[2024-05-25 14:20] LABS: Absolute Lymphocyte Count 1.15 X10^3/uL (0.83-4.51); Absolute Neutrophil Count 6.5 X10^3/uL (2.0-7.7); Basophil# 0.03 X10^3/uL; Basophil% 0.3 % (0-1); Eosinophil# 0.31 X10^3/uL; Eosinophils% 3.6 % (0-5); Hematocrit 33.6 % (40-54); Hemoglobin 10.7 g/dL (13.0-16.5); Lymphocyte # 1.15 X10^3/ul (0.83-4.51); Lymphocyte % 13.2 % (19-41); Mean Corp Hgb Conc 31.8 g/dL (32-36); Mean Corpuscular Hgb 29.6 pg (27.0-32.0); Mean Corpuscular Volume 92.8 fL (80-94); Mean Platelet Vol. 9.1 fl (6.2-12.0); Monocyte# 0.65 X10^3/uL; Monocyte% 7.5 % (0-10); NRBC Flagged by Analyzer 0 % (0-5); Neutrophil % 74.8 % (47-70); Platelet Count 427 K/mm3 (150-450); RBC Distribution Width CV 17.9 % (11.6-14.6); RBC Distribution Width SD 61.4 fl (35.1-43.9); Red Blood Count 3.62 M/mm3 (4.6-6.2); White Blood Count 8.7 K/mm3 (4.4-11.0)
[2024-05-26 00:20] LABS: ALB/GLOB Ratio 1.3 RATIO (0.9-2.4); AST(SGOT) 17 U/L (<=37); Alanine Aminotransfer ALT/SGPT 16 U/L (<=46); Albumin, Serum 3.6 g/dL (3.4-4.8); Alkaline Phosphatase 160 U/L (40-129); Anion Gap 12 (5-15); BUN 22 mg/dL (4-19); Carbon Dioxide 21.8 mmol/L (21.0-32.0); Chloride 104 mmol/L (98-108); Creatinine, Serum 1.05 mg/dL (0.70-1.20); EST Glomerular Filtration Rate 69 (>60); Globulin 2.7 g/dL (2.2-4.2); Glucose 128 mg/dL (70-99); Potassium 4.4 mmol/L (3.3-5.1); Protein, Total 6.3 g/dL (5.9-8.4); Sodium Level 138 mmol/L (133-145); Total Bilirubin 0.52 mg/dL (0.00-1.30)
[2024-05-26 01:15] LABS: Cholesterol 78 mg/dL (<=200); High Density Lipoprotein 36 mg/dL; Low Density Lipoprotein Calc. 21 mg/dL; Triglycerides 106 mg/dL; Very Low Density Lipoprotein 21 mg/dL (5-40); cholesterol:hdl ratio screen 2.18
[2024-05-26 20:49] LABS: Hemoglobin A1c 5.5 % (<=5.6)
== END | disposition home or self-care (01) ==
LOC: POLAB3 14:08
PROVIDERS: PCP Family Medicine Geriatric Medicine; Visit Provider Family Medicine Geriatric Medicine
DX: E78.5 Hyperlipidemia, unspecified (principal); E11.65 Type 2 diabetes mellitus with hyperglycemia; E03.9 Hypothyroidism, unspecified; I10 Essential (primary) hypertension
CPT/HCPCS: 36415; 80053; 80061; 83036; 84443; 85025

== ENCOUNTER → 2024-06-17 | Outpatient (CLI) | payer MEDICARE, OTHER, SELFPAY ==
[2024-06-17 12:49] LABS: Absolute Lymphocyte Count 1.17 X10^3/uL (0.83-4.51); Absolute Neutrophil Count 6.2 X10^3/uL (2.0-7.7); Basophil# 0.04 X10^3/uL; Basophil% 0.5 % (0-1); Eosinophils% 4.8 % (0-5); Hematocrit 40.2 % (40-54); Hemoglobin 12.6 g/dL (13.0-16.5); Lymphocyte # 1.17 X10^3/ul (0.83-4.51); Mean Corp Hgb Conc 31.3 g/dL (32-36); Mean Corpuscular Hgb 27.8 pg (27.0-32.0); Mean Corpuscular Volume 88.7 fL (80-94); Mean Platelet Vol. 9.7 fl (6.2-12.0); Monocyte# 0.52 X10^3/uL; Monocyte% 6.2 % (0-10); NRBC Flagged by Analyzer 0 % (0-5); Neutrophil # 6.18 X10^3/uL (2.7-7.7); Neutrophil % 73.9 % (47-70); Platelet Count 351 K/mm3 (150-450); RBC Distribution Width CV 15.4 % (11.6-14.6); RBC Distribution Width SD 49.7 fl (35.1-43.9); Red Blood Count 4.53 M/mm3 (4.6-6.2); White Blood Count 8.4 K/mm3 (4.4-11.0)
[2024-06-17 14:03] LABS: Uric Acid 3.2 mg/dL (3.5-7.2)
[2024-06-17 14:05] LABS: ALB/GLOB Ratio 1.3 RATIO (0.9-2.4); AST(SGOT) 23 U/L (<=37); Alanine Aminotransfer ALT/SGPT 14 U/L (<=46); Albumin, Serum 3.5 g/dL (3.4-4.8); Alkaline Phosphatase 187 U/L (40-129); Anion Gap 11 (5-15); BUN 15 mg/dL (4-19); Calcium,Total 8.9 mg/dL (7.6-11.0); Carbon Dioxide 23.1 mmol/L (21.0-32.0); Chloride 104 mmol/L (98-108); Creatinine, Serum 0.97 mg/dL (0.70-1.20); EST Glomerular Filtration Rate 76 (>60); Globulin 2.8 g/dL (2.2-4.2); Glucose 103 mg/dL (70-99); Potassium 4.4 mmol/L (3.3-5.1); Protein, Total 6.3 g/dL (5.9-8.4); Sodium Level 138 mmol/L (133-145); Total Bilirubin 0.44 mg/dL (0.00-1.30); Vitamin D,25 Hydroxy 20.4 ng/mL (30-100)
== END | disposition home or self-care (01) ==
LOC: LAB 12:05
PROVIDERS: PCP Family Medicine Geriatric Medicine; Referring Provider Family Medicine Geriatric Medicine; Visit Provider Family Medicine Geriatric Medicine
DX: E11.65 Type 2 diabetes mellitus with hyperglycemia (principal); I10 Essential (primary) hypertension; M10.9 Gout, unspecified; E55.9 Vitamin D deficiency, unspecified
CPT/HCPCS: 36415; 80053; 82306; 84443; 84550; 85025

== ENCOUNTER → 2024-09-03 | Outpatient (CLI) | payer MEDICARE, OTHER, SELFPAY ==
--- NOTE | 2024-09-03 12:59 | MRI_ITS ---
PROCEDURE: MRI ABD WITH AND W/O CONTRAST 09/03/2024 REASON FOR EXAM: LIVER AND BILIARY TRACT. Follow-up liver lesion. TECHNIQUE: MRI ABD WITH AND W/O CONTRAST Multiplanar and multisequence images were obtained. CONTRAST: Clariscan VOLUME: 17 mL COMPARISON: CT chest abdomen and pelvis with IV contrast, 12/09/2023 FINDINGS: Liver: Normal homogeneous parenchyma. There are no focal abnormalities. Biliary: There are multiple gallstones the largest measuring 2.9 cm in diameter. There is no biliary ductal dilatation. Pancreas: Normal. Spleen: Normal. Adrenals: Normal. Kidneys: Normal. Bowel: There is a percutaneous gastrostomy tube present. Lymph Nodes: No evidence of mesenteric or retroperitoneal lymphadenopathy. Major Vessels: Unremarkable. 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 MRI/MRI Abd WITH and W/O Contrast IMPRESSION: 1. No evidence of hepatic steatosis or focal hepatic abnormalities. 2. Cholelithiasis without evidence of cholecystitis. 3. Percutaneous gastrostomy tube. 4. Other findings as noted. Reading Location: [id number]
--- NOTE | 2024-09-03 12:59 | MRI_ITS ---
PROCEDURE: MRI ABD WITH AND W/O CONTRAST 09/03/2024 REASON FOR EXAM: LIVER AND BILIARY TRACT. Follow-up liver lesion. TECHNIQUE: MRI ABD WITH AND W/O CONTRAST Multiplanar and multisequence images were obtained. CONTRAST: Clariscan VOLUME: 17 mL COMPARISON: CT chest abdomen and pelvis with IV contrast, 12/09/2023 FINDINGS: Liver: Normal homogeneous parenchyma. There are no focal abnormalities. Biliary: There are multiple gallstones the largest measuring 2.9 cm in diameter. There is no biliary ductal dilatation. Pancreas: Normal. Spleen: Normal. Adrenals: Normal. Kidneys: Normal. Bowel: There is a percutaneous gastrostomy tube present. Lymph Nodes: No evidence of mesenteric or retroperitoneal lymphadenopathy. Major Vessels: Unremarkable. 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 MRI/MRI Abd WITH and W/O Contrast IMPRESSION: 1. No evidence of hepatic steatosis or focal hepatic abnormalities. 2. Cholelithiasis without evidence of cholecystitis. 3. Percutaneous gastrostomy tube. 4. Other findings as noted. Reading Location: [id number]
== END | disposition home or self-care (01) ==
LOC: OPMRI 12:41
PROVIDERS: PCP Family Medicine Geriatric Medicine; Referring Provider Family Medicine Geriatric Medicine; Visit Provider Family Medicine Geriatric Medicine
DX: R93.2 Abnormal findings on diagnostic imaging of liver and biliary tract (principal)
CPT/HCPCS: 74183; A9575; A4216

== ENCOUNTER → 2024-12-08 | Outpatient (CLI) | payer MEDICARE, OTHER, SELFPAY ==
[2024-12-08 11:39] LABS: Hematocrit 41.6 % (40-54); Hemoglobin 14.6 g/dL (13.0-16.5); Immature Granulocytes Count 0.020 X10^3/uL (0.0-0.0); Mean Corp Hgb Conc 35.1 g/dL (32-36); Mean Corpuscular Volume 86.5 fL (80-94); Mean Platelet Vol. 10.3 fl (6.2-12.0); NRBC Flagged by Analyzer 0 % (0-5); Platelet Count 178 K/mm3 (150-450); RBC Distribution Width CV 14.5 % (11.6-14.6); RBC Distribution Width SD 45.7 fl (35.1-43.9); Red Blood Count 4.81 M/mm3 (4.6-6.2); White Blood Count 6.3 K/mm3 (4.4-11.0)
[2024-12-08 13:16] LABS: Uric Acid 3.2 mg/dL (3.5-7.2)
[2024-12-08 13:21] LABS: AST(SGOT) 32 U/L (<=37); Alanine Aminotransfer ALT/SGPT 33 U/L (<=46); Albumin, Serum 4.0 g/dL (3.4-4.8); Alkaline Phosphatase 115 U/L (40-129); Anion Gap 13 (5-15); BUN 21 mg/dL (4-19); BUN/Creat Ratio 18.8 RATIO (10-20); Calcium,Total 9.1 mg/dL (7.6-11.0); Carbon Dioxide 21.8 mmol/L (21.0-32.0); Chloride 105 mmol/L (98-108); Globulin 2.3 g/dL (2.2-4.2); Glucose 97 mg/dL (70-99); Potassium 4.3 mmol/L (3.3-5.1); Vitamin D,25 Hydroxy 38.9 ng/mL (30-100)
[2024-12-08 19:25] LABS: Xtra Tube Kwok EXTRA TUBE
== END | disposition home or self-care (01) ==
LOC: POLAB3 11:18
PROVIDERS: PCP Family Medicine Geriatric Medicine; Visit Provider Family Medicine Geriatric Medicine
DX: I10 Essential (primary) hypertension (principal); E11.65 Type 2 diabetes mellitus with hyperglycemia; E03.9 Hypothyroidism, unspecified; M10.9 Gout, unspecified; E55.9 Vitamin D deficiency, unspecified
CPT/HCPCS: 36415; 80053; 82306; 83036; 84443; 84550; 85025